=== PATIENT | male | born 1950 | race Caucasian/White ===

== ENCOUNTER 2016-08-26 16:14 | Inpatient (IN) | payer BC ==
[~2016-08-26] VITALS: Ht 182.9 cm; Wt 113.8 kg
[~2016-08-26 16:14] MED LIST: AMLO10TA PO; AUGM875T27 PO; CATA0.1T PO; CIPR500T89 PO; DILA100C PO; ELIQ5TAB PO; FLAG500T PO; LASI40TA PO; LOSA50TA20 PO; MYLI40DR PO; POTA10TA16 PO; PRIM250T5 PO; ROXI1TAB2 PO; TYLE325T5 PO; TYLE650T30 PO
[2016-08-26 17:09] LABS: ALBUMIN 4.2 GM/DL (3.2-5.2); ALKALINE PHOSPHATASE 77 U/L (45-117); ALT/SGPT 105 U/L (12-78); AST/SGOT 300 U/L (15-37); BILIRUBIN,DIRECT 0.3 MG/DL (0.0-0.2); BILIRUBIN,TOTAL 0.8 MG/DL (0.2-1.0); BLOOD UREA NITROGEN 43 MG/DL (7-18); CARBON DIOXIDE LEVEL 28 MEQ/L (21-32); CHLORIDE LEVEL 98 MEQ/L (98-107); CREATININE FOR GFR 2.07 MG/DL (0.70-1.30); GLUCOSE, FASTING 118 MG/DL (80-110); POTASSIUM SERUM 3.5 MEQ/L (3.5-5.1); SODIUM LEVEL 142 MEQ/L (136-145); TOTAL PROTEIN 7.6 GM/DL (6.4-8.2)
[2016-08-26 17:20] LABS: LARGE UNSTAINED CELL # 0.1 K/mm3 (0.0-0.4); LARGE UNSTAINED CELL % 0.4 % (0.0-4.0); LYMPH # 0.8 K/mm3 (1.5-4.5); LYMPH % 4.2 % (24.0-44.0); MEAN CORPUSCULAR HEMOGLOBIN 33.5 pg (27.0-33.0); MEAN CORPUSCULAR HGB CONC 35.2 g/dl (32.0-36.5); MEAN CORPUSCULAR VOLUME 95.2 fl (80.0-96.0); MONO # 0.9 K/mm3 (0.0-0.8); MONO % 4.5 % (0.0-5.0); NEUTROPHILS # 17.3 K/mm3 (1.8-7.7); NEUTROPHILS % 90.7 % (36.0-66.0); PLATELET COUNT, AUTOMATED 275 k/mm3 (150-450); RED CELL DISTRIBUTION WIDTH 12.8 % (11.5-14.5); WHITE BLOOD COUNT 19.1 K/mm3 (4.0-10.0)
[2016-08-26 17:23] LABS: CONTROL LINE INT CTR LINE PRESENT; METHADONE URINE NEGATIVE (NEGATIVE); TRICYCLIC ANTIDEPRESS URINE NEGATIVE (NEGATIVE)
[2016-08-26] MEDS ORDERED: FURO20TA2 PO (17:29)
[2016-08-26 17:56] LABS: ALBUMIN/GLOBULIN RATIO 1.23 (1.00-1.93); ANION GAP 16 MEQ/L (8-16)
[2016-08-26] MEDS ORDERED: PHENYTOIN INJ 250 MG/5 ML VIAL (J1165) As Ordered ONE (18:06)
[2016-08-26 18:21] LABS: ABG BASE EXCESS -4.3 (-2.0-2.0); ABG DEVICE NASAL CANN; ABG HCO3 18.2 MEQ/L (22.0-26.0); ABG PARTIAL PRESSURE CO2 27.4 mmHg (35.0-45.0); ABG PARTIAL PRESSURE O2 82.7 mmHg (75.0-100.0); ABG STANDARD HCO3 20.9 MEQ/L (22.0-26.0); ABG pH (ARTERIAL) 7.439 UNITS (7.350-7.450)
--- NOTE | 2016-08-26 20:20 | REPUSA ---
CLINICAL HISTORY: Trauma TECHNIQUE: Multiple axial CT images were obtained of the left hip without IV contrast material. MPR c oronal and sagittal sequences are obtained. COMMENTS: There is no evidence of fracture or dislocation. There are no lytic or blastic lesions. No soft tissu e masses or fluid collections are present. There is no evidence of arthritis. Joint spaces are preserved. IMPRESSION: No acute fracture. Thank you for your kind referral of this patient.
--- NOTE | 2016-08-26 20:44 | HPEPDOC ---
General Date of Admission Aug 26, 2016 at 20:09 Chief Complaint The patient is a 66-year-old male Presented to the ER via EMS because he was found down at home History of Present Illness Patient is a 66 year old male with a PMHx of HTN and seizure disorder who presented to the ER via EMS because he was found down at his home. The neighbors noted that the patient had his shower running for a long duration. When they went to go investigate they found him on the ground for a long duration. He was brought in by EMS and had a CT scan of his head which revealed a multiple new low-density lesions, and in the left inferior frontal lobe an area with thrombus vs. tiny parenchymal bleed. Hospitalist team was consulted. Patient was seen and examined at the bedside. He still remains lethargic, is awake and alert, oriented to only person and place. He is unable to add any details to his history and does not participate in a full neurologic exam. Home Medications Scheduled Amlodipine Besylate (Norvasc) 10 Mg Tab 10 MG PO DAILY (Reported) Furosemide (Furosemide) 20 Mg Tab 20 MG PO DAILY (Reported) Losartan Potassium (Losartan Potassium) 50 Mg Tab 50 MG PO DAILY (Reported) Phenytoin Sodium (Dilantin) 100 Mg Cap 100 MG PO TID (Reported) Allergies Coded Allergies: No Known Drug Allergy (Verified Allergy, Unknown, 04/15/14) Past Medical History Medical History Obtained from chart: HTN, Seizure disorder Surgical History Obtained from chart: Cholecystectomy Family History Family History Unable to be obtained Social History Social History Unable to be obtained Review of Symptoms Other systems Unable to be obtained Vital Signs - Vitals: BP 152/93, HR 84, RR 18, Sat 97%RA, Temp 97.9F - General: Lying in bed, No acute distress, Speaking in full sentences, AAOx2 ( not to time) - HEENT: Pupils reactive to light - CVS: RRR, +S1S2, - Lungs: Fair air entry bilaterally, Poor inspiratory effort, No appreciable crackles / rhonchi - Abdomen: Soft, Non-distended, Non-tender, + Bowel sounds x 4 - Extremities: + PPx4, No lower extremity edema, No calf tenderness - Neuro: Moves all four extremities equally - Skin: No visible rashes Laboratory Data Labs 24H Laboratory Tests 2 08/26/16 16:31: Aspartate Amino Transf (AST/SGOT) 300H, Alanine Aminotransferase (ALT/SGPT) 105H , Alkaline Phosphatase 77, Total Bilirubin 0.8, Direct Bilirubin 0.3H, Albumin 4.2, Albumin/Globulin Ratio 1.23, Anion Gap 16, White Blood Count 19.1H, Red Blood Count 4.98, Hemoglobin 16.6, Hematocrit 47.4, Mean Corpuscular Volume 95.2 , Mean Corpuscular Hemoglobin 33.5H, Mean Corpuscular Hemoglobin Concent 35.2, Red Cell Distribution Width 12.8, Platelet Count 275, Neutrophils (%) (Auto) 90.7H, Lymphocytes (%) (Auto) 4.2L, Monocytes (%) (Auto) 4.5, Eosinophils (%) ( Auto) 0.0, Basophils (%) (Auto) 0.0, Neutrophils # (Auto) 17.3H, Lymphocytes # ( Auto) 0.8L, Monocytes # (Auto) 0.9H, Eosinophils # (Auto) 0.0, Basophils # (Auto ) 0.0, Calcium Level 9.0, Creatine Kinase MB 171.9H, Creatine Kinase MB Relative Index 1.28, Large Unclassified Cells # 0.1, Large Unclassified Cells % 0.4, Phenytoin (Dilantin) Level 4.7L, Thyroid Stimulating Hormone (TSH) 0.541, Total Creatine Kinase 78363B, Total Protein 7.6, Troponin I 0.02 08/26/16 17:05: Urine Amorphous Sediment SMALLH, Urine Amphetamine Level NEGATIVE, Urine Benzodiazepines Screen NEGATIVE, Urine Cannabinoids NEGATIVE, Urine Cocaine Metabolite NEGATIVE, Urine Opiates Screen NEGATIVE, Urine Appearance CLOUDYH, Urine Color AKASH, Urine pH 5.0, Urine Specific [place] 1.024, Urine Protein 2+H , Urine Glucose (UA) 1+H, Urine Ketones TRACEH, Urine Urobilinogen 0.2, Urine Bilirubin NEGATIVE, Urine Leukocyte Esterase NEGATIVE, Urine Bacteria (Auto) 1+H , Urine Barbiturates, Qualitative NEGATIVE, Urine Blood 3+H, Urine Calcium Carbonate Cryst(Auto) , Urine Calcium Oxalate Cryst (Auto) , Urine Calcium Phosphate Cassidy (Auto) , Urine Cellular Casts , Urine Cystine Crystals , Urine Granular Casts (Auto) , Urine Hyaline Casts (Auto) 3, Urine Leucine Crystals , Urine Methadone Screen NEGATIVE, Urine Mucus (Auto) SMALL, Urine Myoglobin POSITIVE, Urine Nitrite NEGATIVE, Urine Oval Fat Bodies (Auto) , Urine RBC (Auto ) 3, Urine Renal Epithelial Cells , Urine Sperm (Auto) , Urine Squamous Epithelial Cells 1, Urine Transitional Epithelial Cells , Urine Trichomonas ( Auto) , Urine Tricyclic Antidepressants NEGATIVE, Urine Triple Phosphate Cryst ( Auto) , Urine Tyrosine Crystals , Urine Uric Acid Crystals (Auto) , Urine WBC ( Auto) 7H, Urine Waxy Casts (Auto) , Urine Yeast-Like Cells (Auto) 08/26/16 18:06: Arterial Blood pH 7.439, Arterial Blood Partial Pressure CO2 27.4L, Arterial Blood Partial Pressure O2 82.7, Arterial Blood Total CO2 19.0L, Arterial Blood HCO3 18.2L, Arterial Blood Base Excess -4.3L, Arterial Blood Oxygen Saturation 95.8, Blood Gas Bicarbonate Standard 20.9L, Oxygen Delivery Device NASAL FABRIZIO CBC/BMP Laboratory Tests 08/26/16 16:31 Red Blood Count 4.98, Mean Corpuscular Volume 95.2, Mean Corpuscular Hemoglobin 33.5 H, Mean Corpuscular Hemoglobin Concent 35.2, Red Cell Distribution Width 12.8, Neutrophils (%) (Auto) 90.7 H, Lymphocytes (%) (Auto) 4.2 L, Monocytes (% ) (Auto) 4.5, Eosinophils (%) (Auto) 0.0, Basophils (%) (Auto) 0.0, Neutrophils # (Auto) 17.3 H, Lymphocytes # (Auto) 0.8 L, Monocytes # (Auto) 0.9 H, Eosinophils # (Auto) 0.0, Basophils # (Auto) 0.0 Plan / VTE VTE Prophylaxis Ordered?: Yes Plan Plan Acute metabolic encephalopathy possibly 2/2 post-ictal state, possibly 2/2 acute CVA - Presented to the ED after he was found down on at home for a prolonged period of time - Physical reveals he is moving all four extremities equally, no pupillary defects - Phenytoin level sub-therapeutic, has been given loading dose in ER - CT head revealed 2 new low-density lesions in R cerebral hemisphere [R basal ganglia, R posterior frontal lobe worthy matter] consistent with infarction, hyper dense vessel may be acute vascular thrombus vs. tiny parenchymal bleed in the left inferior frontal lobe - Will check MRI brain and MRA head - Will check ECHO, Carotid US - Will keep on telemetry and ICU monitoring - Neuro checks - Discussed case with neurology (Dr. Ken); will be on consult will get additional imaging, no antiplatelet therapy at this time - Will c/w atorvastatin and phenytoin Rhabdomyolysis likely 2/2 prolonged immobility 2/2 fall - Will check urine myoglobin - Strict ins/outs, daily weights, will monitor for signs of fluid overload - Will start gentle IV fluid hydration Acute kidney injury on CKD3 likely 2/2 pre-renal, vs renal 2/2 rhabdomylosis - Baseline creatinine of 1.2-1.3 - Will check urine electrolytes and osmolality - Will start IV fluid hydration Leukocytosis - No fevers or nuchal rigidity - CXR appears clear - UA shows no signs of infection - Will check blood culture, urine culture - Will check lactic acid - Will hold off on antibiotics Fall possibly after seizure episode - Has multiple abrasions on body - No acute fracture noted on imaging Hypertension - Will hold BP medications at this time given acute stroke - If blood pressure exceeds 185/110 will control Seizure disorder - Has been on phenytoin as an outpatient - Sub-therapeutic level - Has been loaded in ER - See above Gastrointestinal prophylaxis - Will start protonix DVT prophylaxis - Will start SCDs only at this time SUGAR BANSAL MD Aug 26, 2016 20:44
[2016-08-26] MEDS: ATORVASTATIN 20 MG TAB PO SCH (21:00)
[2016-08-26] MEDS ORDERED: ASPIRIN 300 MG SUPP PR SCH (21:00)
--- NOTE | 2016-08-26 22:21 | IPNPDOC ---
Text Note Date of Service The patient was seen on 08/26/16. NOTE Spoke to Radiologist Dr Hameed, MRI brain and MRA brain reviewed in comparison to CT head, confirmed right basal ganglion, right parietal, and b/l frontal infarct, possible cardioembolic vs right MCA origin, STACY b/l poor floor , likely thrombus after compared to CT head, confirmed no bleeding Results replated to Dr Ken, recommend full dose ASA, and EDGAR. No anticoagulation indicated at this time. VS,Fishbone, I+O VS, Fishbone, I+O Laboratory Tests 08/26/16 16:31 Red Blood Count 4.98, Mean Corpuscular Volume 95.2, Mean Corpuscular Hemoglobin 33.5 H, Mean Corpuscular Hemoglobin Concent 35.2, Red Cell Distribution Width 12.8, Neutrophils (%) (Auto) 90.7 H, Lymphocytes (%) (Auto) 4.2 L, Monocytes (% ) (Auto) 4.5, Eosinophils (%) (Auto) 0.0, Basophils (%) (Auto) 0.0, Neutrophils # (Auto) 17.3 H, Lymphocytes # (Auto) 0.8 L, Monocytes # (Auto) 0.9 H, Eosinophils # (Auto) 0.0, Basophils # (Auto) 0.0 COLTEN GREY MD Aug 26, 2016 22:21
[2016-08-26] MEDS ORDERED: ASPIRIN 81 MG CHEW TABLET PO SCH (22:37)
--- NOTE | 2016-08-26 23:00 | REPUSA ---
CLINICAL HISTORY: Stroke. Hemorrhage versus ischemia. TECHNIQUE: Head MRA with 3D TOF COMPARISON: Same-day head CT and brain MRI. Right anterior circulation: Right carotid siphon is patent. There is complete or near complete occlus ion of the right anterior cerebral artery. Right middle cerebral artery is patent. No aneurysms are s een. Left anterior circulation: Left carotid siphon is patent. There is complete or near complete occlusio n of the left anterior cerebral artery. Left middle cerebral artery is patent. No aneurysms are seen. Right posterior circulation: Right brainstem arteries are patent. Right posterior cerebral artery is patent. The right posterior communicating artery is patent, which is a normal variant. Left posterior circulation: Left brainstem arteries are patent. Left posterior cerebral artery is pat ent. 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 The hyperdensity seen on the same-day head CT is compatible with acute thrombosis of the ACAs. Findings were discussed with Dr. Yao by phone.
--- NOTE | 2016-08-26 23:00 | REPUSA ---
CLINICAL HISTORY: Infarct versus hemorrhage. TECHNIQUE: MRI of the Brain without gadolinium. Multiplanar T1 and T2 weighted images of the brain we re obtained. COMPARISON: Same-day head CT. T1 and T2: The right basal ganglia infarction produces mild edema that impresses on the right frontal horn but does not produce hydrocephalus. FLAIR: Hyperintensity in the right basal ganglia, high right frontal motor cortex and smaller foci wi th a bilateral periventricular distribution which correspond to the regions of acute ischemia seen on diffusion imaging. Vascular flow voids: Susceptibility artifact within the A1 segment of the STACY suggests acute thrombos is. Midline: Pituitary normal size. Brain stem and corpus callosum appear normal. Sinuses: Mild bilateral maxillary sinusitis. Diffusion Imaging: There are multiple regions of acute infarction; right basal ganglia 2.5 x 2.4 cm, high right parietal lobe 1.9 x 1.8 cm, and several smaller infarctions involving the bilateral perive ntricular tissues superior to the lateral ventricles.. IMPRESSION: 1. Multiple acute infarctions involving the right basal ganglia, high right frontal lobe, and smaller foci along the bilateral medial frontal lobes. This is compatible with acute infarction affecting th e anterior cerebral arteries. The accompanying MRA demonstrates near complete occlusion of blood flow within the bilateral anterior cerebral arteries. 2. Comparison to the same day CT reveals no evidence of hemorrhage into the regions of infarction. Findings were discussed with Dr. Yao by phone.
[2016-08-26] MEDS ORDERED: ASPIRIN 81 MG CHEW TABLET As Ordered ONE (23:07)
[2016-08-27] VITALS (10 sets, daily range): BP systolic 141–179; BP diastolic 86–101; PULSE 90
--- NOTE | 2016-08-27 00:22 | EDDOCDS ---
Physician Documentation [facility] Name: Brett Haddad Age: 66 yrs Sex: Male : 1950 Arrival Date: 08/26/2016 Time: 16:14 Bed MRI Private MD: Luis Hays Disposition: 08/26/16 18:23 Hospitalization ordered by Lizet Guerrero for Inpatient Admission. Preliminary diagnosis are Rhabdomyolysis, Fall in (into) shower or empty bathtub. - Bed requested for M ICU. - Status is Inpatient Admission. curtis - Condition is Stable. - Problem is new. - Symptoms are unchanged. Historical: - Allergies: no known allergies; - Home Meds: 1. Norvasc 10 mg Oral tab 1 tab once daily 2. losartan 50 mg oral tab 1 tab once daily 3. Phenytoin 100 mg Oral 1 tabs three times a day 4. Lasix 20 mg oral tab 1 tab once daily - PMHx: Hypertension; Seizures; - PSHx: Cholecystectomy; - Social history: Smoking status: Patient states was never smoker of tobacco. No barriers to communication noted, The patient speaks fluent Croatian, Speaks appropriately for age. - Family history: Not pertinent. - : The pt / caregiver states he / she is not on anticoagulants. Home medication list is obtained from pill bottles. - Exposure Risk Screening:: None identified. Vital Signs: 08/26 16:27 BP 186 / 86 LA Supine (man/lg); Pulse 69; Resp 20; Temp 97.9(O); Pulse Ox 95% on R/A; nb2 Pain 0/10; 16:49 Weight 99.67 kg / 219.73 lbs; js13 16:51 BP 152 / 93 (auto/); js13 16:51 Pulse 84 MON; Resp 18; Pulse Ox 97% on R/A; js13 21:39 BP 151 / 96 (auto/); mv5 21:41 Pulse 76 MON; Pulse Ox 95% ; mv5 21:45 BP 158 / 85 (auto/); mv5 21:46 Pulse 77 MON; Pulse Ox 92% ; mv5 22:00 BP 155 / 85 (auto/); mv5 22:00 Pulse 78 MON; Pulse Ox 93% ; mv5 22:15 BP 151 / 74 (auto/); mv5 22:16 Pulse 80 MON; Pulse Ox 93% ; mv5 22:30 BP 162 / 82 (auto/); mv5 22:31 Pulse 79 MON; Pulse Ox 92% ; mv5 22:45 BP 151 / 73 (auto/); mv5 22:46 Pulse 81 MON; Pulse Ox 92% ; mv5 23:00 BP 156 / 89 (auto/); mv5 23:00 Pulse 79 MON; Pulse Ox 92% ; mv5 23:15 BP 155 / 84 (auto/); mv5 23:16 Pulse 84 MON; Pulse Ox 91% ; mv5 23:30 BP 159 / 77 (auto/); mv5 23:32 BP 157 / 77; Pulse 86 MON; Resp 16; Temp 100.4(TE); Pulse Ox 93% on R/A; mv5 23:48 BP 157 / 77; Pulse 86; Resp 16; Temp 100.4(TE); Pulse Ox 93% on R/A; mv5 MDM: 16:30 Bible Worker/Pulse Ox/q 15 min VS ordered. le 16:30 IV Saline Lock ordered. le 16:30 Oxygen at 4L/Min NC or Home dosage ordered. le 16:30 Rhythm Strip to chart ordered. le 16:31 [place] ordered. le 16:31 CBC with Diff Ordered. EDMS 16:31 Cardiac Injury Profile Ordered. EDMS 16:31 Drug Eval Toxicology ED Only Ordered. EDMS 16:31 Liver Profile Ordered. EDMS 16:31 MED Profile Ordered. EDMS 16:31 Thyroid Stimulating Hormone Ordered. EDMS 16:31 Troponin Ordered. EDMS 16:31 Urinalysis Ordered. EDMS 16:31 Urine Myoglobin Screen Ordered. EDMS 16:32 Chest, 1 View Ordered. EDMS 16:32 CT Head Without Contrast Ordered. EDMS 16:32 ECG WITH READING ER PHYS+CARDIAG ordered. EDMS 16:46 Dilantin Level Ordered. EDMS 16:55 NS 0.9% 1000 ml IV at bolus once ordered. le 17:09 Hip,AP,LAT to include Pelvis Ordered. EDMS 17:11 BED REQUEST+ADM ordered. EDMS 17:52 CBC with Diff Reviewed. le 17:52 Cardiac Injury Profile Reviewed. le 17:52 Urinalysis Reviewed. le 17:52 Dilantin Level Reviewed. le 17:52 Drug Eval Toxicology ED Only Reviewed. le 17:52 Thyroid Stimulating Hormone Reviewed. le 17:52 Troponin Reviewed. le 17:52 Urine Myoglobin Screen Reviewed. le 17:56 Call Respiratory ordered. le 17:56 Phenytoin 500 mg IVPB once over 30 mins; dilute in 100ml of NS ordered. le 17:57 Call Respiratory complete. ar3 17:57 -Arterial Blood Gas Ordered. EDMS 17:59 Cardiac Injury Profile Reviewed. le 18:00 CT Hip Without Contrast Ordered. EDMS 18:21 MRI Screening Tool - Place on chart, inform RN ordered. le 18:21 -MRA-Brain without contrast Ordered. EDMS 18:21 -MRI-Brain without Ordered. EDMS 19:22 Financial registration complete. gb 19:42 MRI Screening Tool - Place on chart, inform RN complete. ml3 19:43 ECHOCARD,DOPPLER/COLOR FLOW ordered. EDMS 19:43 NPO DIET ordered. EDMS 19:44 CARDIAC INJURY PROFILE Ordered. EDMS 19:44 TROPONIN Ordered. EDMS 19:44 URINALYSIS Ordered. EDMS 19:44 CARDIAC INJURY PROFILE Ordered. EDMS 19:44 TROPONIN Ordered. EDMS 19:44 CBC WITH DIFFERENTIAL Ordered. EDMS 19:44 COMPLETE COMPHRENSIVE METABOLI Ordered. EDMS 19:44 MAGNESIUM LEVEL Ordered. EDMS 19:45 URINE CULTURE Ordered. EDMS 19:45 BLOOD CULTURES Ordered. EDMS 19:47 SODIUM,RANDOM URINE Ordered. EDMS 19:48 CREATININE,RANDOM URINE Ordered. EDMS 19:48 OSMOLALITY,URINE Ordered. EDMS 19:52 LACTIC ACID LEVEL, LACTATE Ordered. EDMS 20:12 Admission / Observation Status ordered. EDMS 20:35 Duplex,carotid (complete) Ordered. EDMS 20:41 URINE MYOGLOBIN SCREEN Ordered. EDMS 20:47 Liver Profile Reviewed. le 20:47 MED Profile Reviewed. le 20:47 -Arterial Blood Gas Reviewed. le 20:47 Thyroid Stimulating Hormone Reviewed. le 20:47 Troponin Reviewed. le 20:47 CT Hip Without Contrast Reviewed. le 21:43 CARDIAC INJURY PROFILE Ordered. EDMS 21:43 TROPONIN Ordered. EDMS 22:42 CARDIAC INJURY PROFILE Reviewed. le 22:42 TROPONIN Reviewed. le 22:42 LACTIC ACID LEVEL, LACTATE Reviewed. le Administered Medications: 17:06 Drug: NS 0.9% 1000 ml [sodium chloride 0.9 % intravenous solution] Route: IV; Rate: js13 bolus; Site: right antecubital; 18:15 Drug: Phenytoin 500 mg [phenytoin sodium 50 mg/mL intravenous solution] Route: IVPB; js13 Infused Over: 30 mins; Site: right antecubital; 19:03 Follow up: IV Status: Completed infusion; IV Intake: 50ml js13 Signatures: Dispatcher [employer] EDMS Sangeeta Armstrong RN RN curtis Almanzar, Kely, Reg Reg gb Adelfo, Luís, [place] Unit ml3 Pari Ramsey, ALUMNI COORDINATOR ALUMNI COORDINATOR Noreen Maria, WARP KNITTING MACHINE OPERATOR WARP KNITTING MACHINE OPERATOR ar3 Kelly Wilkerson,ANGELITO EATON ld5 Ama Stewart RN RN js13 The chart was reviewed and I authenticate all verbal orders and agree with the evaluation and treatment provided.Corrections: (The following items were deleted from the chart) 16:48 16:30 Accucheck ordered. clayton graham 21:43 19:44 CARDIAC INJURY PROFILE ordered. EDKS EDMS 21:43 19:44 TROPONIN ordered. EDMS EDMS 21:43 19:45 CREATINE PHOSPHOKINASE ordered. EDMS EDMS MTDD
--- NOTE | 2016-08-27 00:22 | EDDOCDS ---
Nurse's Notes [facility] Name: Brett Haddad Age: 66 yrs Sex: Male : 1950 Arrival Date: 08/26/2016 Time: 16:14 Bed MRI Private MD: Luis Hays Diagnosis: Rhabdomyolysis;Fall in (into) shower or empty bathtub Presentation: 08/26 16:19 Presenting complaint: EMS states: Neighbor called 911 due to water running all nights. ld5 Pt found down in shower with water still running. Altered LOC. Suicide/Homicide risk assessment- Unable to assess, the patient has an altered level of consciousness. 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 Transition of care: patient was not received from another setting of care. Care prior to arrival: Glucose check. 169. 16:19 Acuity: HILDA Level 2 ld5 16:19 Method Of Arrival: Ambulance ld5 Triage Assessment: 16:24 General: Appears in no apparent distress. Pain: Denies pain. Neurological: Level of ld5 Consciousness is awake, obeys commands, Oriented to person, place. EENT: redness to right eye. Respiratory: Airway is patent Respiratory effort is even, unlabored. Derm: Skin temperature is cold. 21:40 General: Appears in no apparent distress. General: Pt resting with eyes closed, wakes mv5 to voice/light tactile stim. Pt obeys commands with mildly delayed responsiveness. . Pain: Denies pain. Neurological: Level of Consciousness is obeys commands. Historical: - Allergies: no known allergies; - Home Meds: 1. Norvasc 10 mg Oral tab 1 tab once daily 2. losartan 50 mg oral tab 1 tab once daily 3. Phenytoin 100 mg Oral 1 tabs three times a day 4. Lasix 20 mg oral tab 1 tab once daily - PMHx: Hypertension; Seizures; - PSHx: Cholecystectomy; - Social history: Smoking status: Patient states was never smoker of tobacco. No barriers to communication noted, The patient speaks fluent Romansh, Speaks appropriately for age. - Family history: Not pertinent. - : The pt / caregiver states he / she is not on anticoagulants. Home medication list is obtained from pill bottles. - Exposure Risk Screening:: None identified. Screenin:51 Screening information is obtained from the patient. Fall risk: At risk due to age, js13 immobility, prior history of falls. Assistance ADL's: requires no assistance with activities of daily living. Abuse/DV Screen: The patient / caregiver reports he/she is: not in a situation that causes fear, pain or injury. Nutritional screening: No deficits noted. Advance Directives: There is no active DNR order. home support is adequate. Assessment: 17:37 General: Appears in no apparent distress, Behavior is appropriate for age, cooperative. js13 Pain: Denies pain. Neurological: Level of Consciousness is awake, alert, obeys commands. Cardiovascular: Rhythm is regular Chest pain is denied. Respiratory: Airway is patent Respiratory effort is even, unlabored, Respiratory pattern is regular, Breath sounds are clear. GI: Abdomen is obese, Bowel sounds present X 4 quads. Abd is soft and non tender. Derm: Skin is pink, warm & dry. Derm: Bruising that is bright red, on right lower back, right foot and right leg Patient has scrapes on his lower extremities with a dime sized pressure area on right ankle. 18:35 General: Appears in no apparent distress, Behavior is appropriate for age, cooperative. js13 Pain: Denies pain. Neurological: Level of Consciousness is awake, alert, obeys commands. Cardiovascular: Rhythm is regular Chest pain is denied. Respiratory: Airway is patent Respiratory effort is even, unlabored, Respiratory pattern is regular, symmetrical, Breath sounds are clear. GI: Abdomen is obese, Bowel sounds present X 4 quads. Abd is soft and non tender. Derm: Skin is pink, warm & dry. 19:13 General: Appears in no apparent distress, Behavior is appropriate for age, cooperative. mv5 General: Pt resting with eyes closed, wakes to voice/light tactile. Unable to complete MRI screening form at this time. Will reattempt and continue to monitor.. Neurological: Level of Consciousness is obeys commands. Cardiovascular: Rhythm is regular. Respiratory: Airway is patent Respiratory effort is even, unlabored, Respiratory pattern is regular, symmetrical. Derm: Skin is pink, warm & dry. 21:40 General: Appears in no apparent distress, Behavior is appropriate for age, cooperative. mv5 General: warm blankets provided.. Pain: Denies pain. Neurological: Level of Consciousness is obeys commands, Oriented to. Cardiovascular: Rhythm is regular. Respiratory: Airway is patent Respiratory effort is even, unlabored, Respiratory pattern is regular, symmetrical. Derm: Skin is pink, warm & dry. 23:00 General: Appears in no apparent distress, comfortable, Behavior is cooperative, quiet. curtis Pain: Denies pain. Neurological: Level of Consciousness is awake, alert, obeys commands, Oriented to person, place, time, in bilateral hand's) arm(s) Speech is normal, speaks in slow sentences, is accurate with time,date, place and current president. EENT: No deficits noted. Cardiovascular: Rhythm is sinus rhythm with unifocal PVCs. Respiratory: Airway is patent Respiratory effort is even, unlabored, Respiratory pattern is regular, symmetrical. : Faulkner in place tea colored urine. 23:41 Cardiovascular: Rhythm is occasional PVC's. mv5 Vital Signs: 16:27 BP 186 / 86 LA Supine (man/lg); Pulse 69; Resp 20; Temp 97.9(O); Pulse Ox 95% on R/A; nb2 Pain 0/10; 16:49 Weight 99.67 kg; js13 16:51 BP 152 / 93 (auto/); js13 16:51 Pulse 84 MON; Resp 18; Pulse Ox 97% on R/A; js13 21:39 BP 151 / 96 (auto/); mv5 21:41 Pulse 76 MON; Pulse Ox 95% ; mv5 21:45 BP 158 / 85 (auto/); mv5 21:46 Pulse 77 MON; Pulse Ox 92% ; mv5 22:00 BP 155 / 85 (auto/); mv5 22:00 Pulse 78 MON; Pulse Ox 93% ; mv5 22:15 BP 151 / 74 (auto/); mv5 22:16 Pulse 80 MON; Pulse Ox 93% ; mv5 22:30 BP 162 / 82 (auto/); mv5 22:31 Pulse 79 MON; Pulse Ox 92% ; mv5 22:45 BP 151 / 73 (auto/); mv5 22:46 Pulse 81 MON; Pulse Ox 92% ; mv5 23:00 BP 156 / 89 (auto/); mv5 23:00 Pulse 79 MON; Pulse Ox 92% ; mv5 23:15 BP 155 / 84 (auto/); mv5 23:16 Pulse 84 MON; Pulse Ox 91% ; mv5 23:30 BP 159 / 77 (auto/); mv5 23:32 BP 157 / 77; Pulse 86 MON; Resp 16; Temp 100.4(TE); Pulse Ox 93% on R/A; mv5 23:48 BP 157 / 77; Pulse 86; Resp 16; Temp 100.4(TE); Pulse Ox 93% on R/A; mv5 Vitals: 16:27 Log In Time N/A - ambulance arrival. nb2 ED Course: 16:14 Patient visited by Noreen Ross PCA. ar3 16:14 Ama Stewart,RN is Primary Nurse. ar3 16:14 Patient moved to Waiting ar3 16:14 Patient moved to 1 ar3 16:15 [facility]. le 16:15 Luis Hays MD is Private Physician. ar3 16:22 Triage Initiated ld5 16:27 Patient has correct armband on for positive identification. Placed in gown. Bed in low nb2 position. Call light in reach. Side rails up X2. deli slicer on. Pulse ox on. NIBP on. 16:28 Patient visited by Nancy Huber. nb2 16:28 Patient visited by Kelly Wilkerson,ANGELITO. ld5 16:34 CBC with Diff Sent. js13 16:34 Cardiac Injury Profile Sent. js13 16:34 Liver Profile Sent. js13 16:34 MED Profile Sent. js13 16:34 Thyroid Stimulating Hormone Sent. js13 16:34 Troponin Sent. js13 16:46 Patient visited by Pari Ramsey FNP. le 16:46 Patient visited by Pari Ramsey FNP. le 16:48 Dilantin Level Sent. js13 16:51 The patient / caregiver is instructed regarding the plan of care and ED course. Seizure js13 precautions initiated. 17:05 Urine Myoglobin Screen Sent. js13 17:05 Drug Eval Toxicology ED Only Sent. js13 17:05 Urinalysis Sent. js13 17:06 Inserted saline lock: 18 gauge in right antecubital area and blood collected. The js13 patient tolerated the procedure well. No procedures done that require assistance. Labs drawn. (by ED staff). Sent per order to lab. Labs/Blood culture drawn Urine collected. Specimen obtained from Faulkner. Urine specimen sent to lab. Faulkner cath inserted 18 Fr. Balloon inflated. To gravity drainage. Urine specimen collected. returned heri urine. Patient tolerated well. 17:12 Patient visited by Morgan Paez, SYD. [facility] 17:12 EKG done. (by ED staff). Reviewed by Pari GUERIN. jmv 17:40 Patient visited by Ama Stewart,ANGELITO. js13 18:16 -Arterial Blood Gas Sent. kjn 18:23 Lizet Guerrero is Hospitalizing Provider. le 18:36 Patient visited by Ama Stewart RN. js13 19:12 Primary Nurse role handed off by Ama Stewart,RN mv5 19:12 Ewelina Mix,RN is Primary Nurse. mv5 19:45 Davina Gutierrez, ANGELITO is Primary Nurse. kmg1 20:06 Patient moved to MRI ml3 20:36 CT Hip Without Contrast Returned. EDMS 23:48 Patient visited by Fariha Grossman PCA. italia 23:50 -MRI-Brain without Returned. EDMS 23:50 -MRA-Brain without contrast Returned. EDMS Administered Medications: 17:06 Drug: NS 0.9% 1000 ml [sodium chloride 0.9 % intravenous solution] Route: IV; Rate: js13 bolus; Site: right antecubital; 18:15 Drug: Phenytoin 500 mg [phenytoin sodium 50 mg/mL intravenous solution] Route: IVPB; js13 Infused Over: 30 mins; Site: right antecubital; 19:03 Follow up: IV Status: Completed infusion; IV Intake: 50ml js13 Intake: 19:03 IV: 50.00ml; Total: 50.00ml. js13 02 00:11 IV: 1000.00ml (NS); Total: 1050.00ml. mv5 Output: 00:11 Urine: 750.00ml (Faulkner); Total: 750.00ml. mv5 RT: 08/26 18:16 ABG's drawn from right radial artery unsuccesfully attempted, provider notified. kjn 18:16 ABG's drawn from right brachial artery pressure held for 5 minutes no bleeding noted kjn pressure bandage applied specimen sent pt. tolerated well. Order Results: Lab Order: CBC with Diff; SPEC'M 08/26/16 16:31 Test: WHITE BLOOD COUNT; Value: 19.1; Range: 4.0-10.0; Abnormal: Above high normal; Units: K/mm3; Status: F Test: RED BLOOD COUNT; Value: 4.98; Range: 4.30-6.10; Units: M/mm3; Status: F Test: HEMOGLOBIN; Value: 16.6; Range: 14.0-18.0; Units: g/dl; Status: F Test: HEMATOCRIT; Value: 47.4; Range: 42.0-52.0; Units: %; Status: F Test: MEAN CORPUSCULAR VOLUME; Value: 95.2; Range: 80.0-96.0; Units: fl; Status: F Test: MEAN CORPUSCULAR HEMOGLOBIN; Value: 33.5; Range: 27.0-33.0; Abnormal: Above high normal; Units: pg; Status: F Test: MEAN CORPUSCULAR HGB CONC; Value: 35.2; Range: 32.0-36.5; Units: g/dl; Status: F Test: RED CELL DISTRIBUTION WIDTH; Value: 12.8; Range: 11.5-14.5; Units: %; Status: F Test: PLATELET COUNT, AUTOMATED; Value: 275; Range: 150-450; Units: k/mm3; Status: F Test: NEUTROPHILS %; Value: 90.7; Range: 36.0-66.0; Abnormal: Above high normal; Units: %; Status: F Test: LYMPH %; Value: 4.2; Range: 24.0-44.0; Abnormal: Below low normal; Units: %; Status: F Test: MONO %; Value: 4.5; Range: 0.0-5.0; Units: %; Status: F Test: EOS %; Value: 0.0; Range: 0.0-3.0; Units: %; Status: F Test: BASO %; Value: 0.0; Range: 0.0-1.0; Units: %; Status: F Test: LARGE UNSTAINED CELL %; Value: 0.4; Range: 0.0-4.0; Units: %; Status: F Test: NEUTROPHILS #; Value: 17.3; Range: 1.8-7.7; Abnormal: Above high normal; Units: K/mm3; Status: F Test: LYMPH #; Value: 0.8; Range: 1.5-4.5; Abnormal: Below low normal; Units: K/mm3; Status: F Test: MONO #; Value: 0.9; Range: 0.0-0.8; Abnormal: Above high normal; Units: K/mm3; Status: F Test: EOS #; Value: 0.0; Range: 0.0-0.50; Units: K/mm3; Status: F Test: BASO #; Value: 0.0; Range: 0.0-0.2; Units: K/mm3; Status: F Test: LARGE UNSTAINED CELL #; Value: 0.1; Range: 0.0-0.4; Units: K/mm3; Status: F Lab Order: Cardiac Injury Profile; SPEC'M 08/26/16 16:31 Test: CPK CREATINE PHOSPHOKINASE; Value: 64641; Range: 39-308; Abnormal: Above high normal; Units: U/L; Status: F Test: CK-MB VALUE MASS; Value: 171.9; Range: 0.0-3.6; Abnormal: Above high normal; Units: NG/ML; Status: F Test: MB/CK RELATIVE INDEX; Value: 1.28; Range: < OR =4; Status: F Test Note: ; DIAGNOSIS CRITERIA MMB ng/ml Relative Index (RI) NON-AMI < or = 5 N/A LIZARRAGA ZONE > 5 < or = 4 AMI > 5 > 4 Lab Order: Drug Eval Toxicology ED Only; SPEC'M 08/26/16 17:05 Test: AMPHETAMINES LEVEL URINE; Value: NEGATIVE; Range: NEGATIVE; Status: F Test: BARBITURATES URINE; Value: NEGATIVE; Range: NEGATIVE; Status: F Test: BENZODIAZEPINES URINE; Value: NEGATIVE; Range: NEGATIVE; Status: F Test: CANNABINOIDS URINE; Value: NEGATIVE; Range: NEGATIVE; Status: F Test: COCAINE METABOLITE URINE; Value: NEGATIVE; Range: NEGATIVE; Status: F Test: METHADONE URINE; Value: NEGATIVE; Range: NEGATIVE; Status: F Test: OPIATES URINE; Value: NEGATIVE; Range: NEGATIVE; Status: F Test: TRICYCLIC ANTIDEPRESS URINE; Value: NEGATIVE; Range: NEGATIVE; Status: F Test Note: ; ALL PRESUMPTIVE POSITIVE FINDINGS ARE UNCONFIRMED NORMAL VALUES THRESHOLD IN NG/ML AMPHETAMINES 1000 METHAMPHETAMINES 1000 BARBITURATES 300 BENZODIAZEPINES 300 CANNABINOIDS (THC) 50 COCAINE METABOLITE 300 METHADONE 300 OPIATES 300 PHENCYCLIDINE 25 TRICYCLIC ANTIDEPRESSANTS 1000 RESULTS ARE FOR MEDICAL PURPOSES ONLY. ALL URINE SPECIMENS WILL BE SAVED FOR 3 DAYS. IF CONFIRMATION OF A PRESUMPTIVE POSTIVE SCREEN RESULT IS DESIRED, CALL CHEMISTRY ([phone]) AND REQUEST URINE TO BE SENT TO REFERENCE LAB. FOR A LIST OF CLOSELY RELATED COMPOUNDS PLEASE CALL THE LAB. Lab Order: Liver Profile; SPEC'M 08/26/16 16:31 Test: AST/SGOT; Value: 300; Range: 15-37; Abnormal: Above high normal; Units: U/L; Status: F Test: ALT/SGPT; Value: 105; Range: 12-78; Abnormal: Above high normal; Units: U/L; Status: F Test: ALKALINE PHOSPHATASE; Value: 77; Range: 45-117; Units: U/L; Status: F Test: BILIRUBIN,TOTAL; Value: 0.8; Range: 0.2-1.0; Units: MG/DL; Status: F Test: BILIRUBIN,DIRECT; Value: 0.3; Range: 0.0-0.2; Abnormal: Above high normal; Units: MG/DL; Status: F Test: TOTAL PROTEIN; Value: 7.6; Range: 6.4-8.2; Units: GM/DL; Status: F Test: ALBUMIN; Value: 4.2; Range: 3.2-5.2; Units: GM/DL; Status: F Test: ALBUMIN/GLOBULIN RATIO; Value: 1.23; Range: 1.00-1.93; Status: F Lab Order: MED Profile; SPEC'M 08/26/16 16:31 Test: GLUCOSE, FASTING; Value: 118; Range: 80-110; Abnormal: Above high normal; Units: MG/DL; Status: F Test: BLOOD UREA NITROGEN; Value: 43; Range: 7-18; Abnormal: Above high normal; Units: MG/DL; Status: F Test: CREATININE FOR GFR; Value: 2.07; Range: 0.70-1.30; Abnormal: Above high normal; Units: MG/DL; Status: F Test: SODIUM LEVEL; Value: 142; Range: 136-145; Units: MEQ/L; Status: F Test: POTASSIUM SERUM; Value: 3.5; Range: 3.5-5.1; Units: MEQ/L; Status: F Test: CHLORIDE LEVEL; Value: 98; Range: 98-107; Units: MEQ/L; Status: F Test: CARBON DIOXIDE LEVEL; Value: 28; Range: 21-32; Units: MEQ/L; Status: F Test: ANION GAP; Value: 16; Range: 8-16; Units: MEQ/L; Status: F Test: CALCIUM LEVEL; Value: 9.0; Range: 8.8-10.2; Units: MG/DL; Status: F Lab Order: Thyroid Stimulating Hormone; SPEC'M 08/26/16 16:31 Test: THYROID STIMULATING HORMONE; Value: 0.541; Range: 0.358-3.740; Units: uIU/ML; Status: F Lab Order: Troponin; SPEC'M 08/26/16 16:31 Test: TROPONIN I; Value: 0.02; Range: < 0.10; Units: NG/ML; Status: F Test Note: ; Troponin I Reference Interval for [employer] LOCI: 99th Percentile= 0.00-0.045 ng/ml Risk Stratification: <= 0.10 ng/ml Decreased Risk for Adverse Clinical Events. 0.10-1.50 ng/ml Increased Risk for Adverse Clinical Events. Evaluation of additional criterion and/or repeat testing in 2-6 hours is suggested to rule out myocardial damage. >= 1.50 ng/ml Indicative of Myocardial Injury. Lab Order: Urinalysis; SPEC'M 08/26/16 17:05 Test: APPEARANCE, URINE; Value: CLOUDY; Range: CLEAR; Abnormal: Above high normal; Status: F Test: COLOR, URINE; Value: HERI; Range: YELLOW; Status: F Test: PH,URINE; Value: 5.0; Range: 5.0-9.0; Units: UNITS; Status: F Test: SPECIFIC GRAVITY URINE AUTO; Value: 1.024; Range: 1.002-1.035; Status: F Test: PROTEIN, URINE AUTO; Value: 2+; Range: NEGATIVE; Abnormal: Above high normal; Units: mg/dL; Status: F Test: GLUCOSE, URINE (UA) AUTO; Value: 1+; Range: NEGATIVE; Abnormal: Above high normal; Units: mg/dL; Status: F Test: KETONE, URINE AUTO; Value: TRACE; Range: NEGATIVE; Abnormal: Above high normal; Units: mg/dL; Status: F Test: UROBILINOGEN, URINE AUTO; Value: 0.2; Range: 0.0-2.0; Units: mg/dL; Status: F Test: BILIRUBIN, URINE AUTO; Value: NEGATIVE; Range: NEGATIVE; Status: F Test: NITRITE, URINE AUTO; Value: NEGATIVE; Range: NEGATIVE; Status: F Test: LEUKOCYTE ESTERASE, URINE AUTO; Value: NEGATIVE; Range: NEGATIVE; Status: F Test: BLOOD, URINE BLOOD; Value: 3+; Range: NEGATIVE; Abnormal: Above high normal; Status: F Test: SPERM, URINE AUTO; Range: NONE; Status: I Test: WBC, URINE AUTO; Value: 7; Range: 0-3; Abnormal: Above high normal; Units: /HPF; Status: F Test: RBC, URINE AUTO; Value: 3; Range: 0-3; Units: /HPF; Status: F Test: BACTERIA, URINE AUTO; Value: 1+; Range: NEGATIVE; Abnormal: Above high normal; Status: F Test: SQUAMOUS EPITHELIAL CELL UR AU; Value: 1; Range: 0-6; Units: /HPF; Status: F Test: MUCUS, URINE; Value: SMALL; Range: NEGATIVE; Status: F Test: HYALINE CAST, URINE AUTO; Value: 3; Range: 0-1; Units: /LPF; Status: F Test: AMORPHOUS SEDIMENT; Value: SMALL; Range: NEGATIVE; Abnormal: Above high normal; Status: F Lab Order: Urine Myoglobin Screen; SPEC'M 08/26/16 17:05 Test: MYOGLOBIN SCREEN, URINE; Value: POSITIVE; Range: NEGATIVE; Status: F Test Note: ; SUGGEST QUANTITATIVE TEST BE ORDERED FOR CONFIRMATION. Lab Order: Dilantin Level; SPEC'M 08/26/16 16:31 Test: PHENYTOIN (DILANTIN); Value: 4.7; Range: 10.0-20.0; Abnormal: Below low normal; Units: UG/ML; Status: F Lab Order: -Arterial Blood Gas; SPEC'M 08/26/16 18:06 Test: ABG pH (ARTERIAL); Value: 7.439; Range: 7.350-7.450; Units: UNITS; Status: F Test: ABG PARTIAL PRESSURE CO2; Value: 27.4; Range: 35.0-45.0; Abnormal: Below low normal; Units: mmHg; Status: F Test: ABG PARTIAL PRESSURE O2; Value: 82.7; Range: 75.0-100.0; Units: mmHg; Status: F Test: ABG TOTAL CO2; Value: 19.0; Range: 23.0-31.0; Abnormal: Below low normal; Units: MEQ/L; Status: F Test: ABG HCO3; Value: 18.2; Range: 22.0-26.0; Abnormal: Below low normal; Units: MEQ/L; Status: F Test: ABG BASE EXCESS; Value: -4.3; Range: -2.0-2.0; Abnormal: Below low normal; Status: F Test: ABG STANDARD HCO3; Value: 20.9; Range: 22.0-26.0; Abnormal: Below low normal; Units: MEQ/L; Status: F Test: ABG O2 SATURATION; Value: 95.8; Range: 95.0-99.0; Units: %; Status: F Test: ABG DEVICE; Value: NASAL FABRIZIO; Status: F Lab Order: CARDIAC INJURY PROFILE; 08/26/16 21:04 Test: CPK CREATINE PHOSPHOKINASE; Value: 03232; Range: 39-308; Abnormal: Above high normal; Units: U/L; Status: F Test: CK-MB VALUE MASS; Value: 232.7; Range: 0.0-3.6; Abnormal: Above high normal; Units: NG/ML; Status: F Test: MB/CK RELATIVE INDEX; Value: 1.08; Range: < OR =4; Status: F Test Note: ; DIAGNOSIS CRITERIA MMB ng/ml Relative Index (RI) NON-AMI < or = 5 N/A LIZARRAGA ZONE > 5 < or = 4 AMI > 5 > 4 Lab Order: TROPONIN; 08/26/16 21:04 Test: TROPONIN I; Value: 0.05; Range: < 0.10; Abnormal: Delta; Units: NG/ML; Status: F Test Note: ; Troponin I Reference Interval for [employer] LOCI: 99th Percentile= 0.00-0.045 ng/ml Risk Stratification: <= 0.10 ng/ml Decreased Risk for Adverse Clinical Events. 0.10-1.50 ng/ml Increased Risk for Adverse Clinical Events. Evaluation of additional criterion and/or repeat testing in 2-6 hours is suggested to rule out myocardial damage. >= 1.50 ng/ml Indicative of Myocardial Injury. Lab Order: LACTIC ACID LEVEL, LACTATE; SPEC'M 08/26/16 21:04 Test: LACTIC ACID SEPSIS PROTOCOL; Value: 2.0; Range: 0.4-2.0; Units: MMOL/L; Status: F Radiology Order: CT Hip Without Contrast Test: CT Hip Without Contrast REASON FOR EXAMINATION: Trauma; ; CLINICAL HISTORY: Trauma; TECHNIQUE: Multiple axial CT images were obtained of the left hip without IV contrast material. MPR c; oronal and sagittal sequences are obtained.; COMMENTS:; There is no evidence of fracture or dislocation. There are no lytic or blastic lesions. No soft tissu; e masses or fluid collections are present.; There is no evidence of arthritis. Joint spaces are preserved.; IMPRESSION:; No acute fracture.; Thank you for your kind referral of this patient.; ; Radiology Order: -MRA-Brain without contrast Test: -MRA-Brain without contrast REASON FOR EXAMINATION: trauma, ? infarct/bleed; ; CLINICAL HISTORY: Stroke. Hemorrhage versus ischemia.; TECHNIQUE: Head MRA with 3D TOF; COMPARISON: Same-day head CT and brain MRI.; ; ; Right anterior circulation: Right carotid siphon is patent. There is complete or near complete occlus; ion of the right anterior cerebral artery. Right middle cerebral artery is patent. No aneurysms are s; een.; ; Left anterior circulation: Left carotid siphon is patent. There is complete or near complete occlusio; n of the left anterior cerebral artery. Left middle cerebral artery is patent. No aneurysms are seen.; ; ; Right posterior circulation: Right brainstem arteries are patent. Right posterior cerebral artery is; patent. The right posterior communicating artery is patent, which is a normal variant.; Left posterior circulation: Left brainstem arteries are patent. 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 Yao by phone.; ; Radiology Order: -MRI-Brain without Test: -MRI-Brain without REASON FOR EXAMINATION: ? infarct/bleed;Trauma; ; CLINICAL HISTORY: Infarct versus hemorrhage.; TECHNIQUE: MRI of the Brain without gadolinium. Multiplanar T1 and T2 weighted images of the brain we; re obtained.; ; COMPARISON: Same-day head CT.; ; T1 and T2: The right basal ganglia infarction produces mild edema that impresses on the right frontal; horn but does not produce hydrocephalus.; FLAIR: Hyperintensity in the right basal ganglia, high right frontal motor cortex and smaller foci wi; th a bilateral periventricular distribution which correspond to the regions of acute ischemia seen on; diffusion imaging.; Vascular flow voids: Susceptibility artifact within the A1 segment of the STACY suggests acute thrombos; is.; Midline: Pituitary normal size. Brain stem and corpus callosum appear normal.; Sinuses: Mild bilateral maxillary sinusitis.; Diffusion Imaging: There are multiple regions of acute infarction; right basal ganglia 2.5 x 2.4 cm,; high right parietal lobe 1.9 x 1.8 cm, and several smaller infarctions involving the bilateral perive; ntricular tissues superior to the lateral ventricles..; ; ; IMPRESSION:; 1. Multiple acute infarctions involving the right basal ganglia, high right frontal lobe, and smaller; foci along the bilateral medial frontal lobes. This is compatible with acute infarction affecting th; e anterior cerebral arteries. The accompanying MRA demonstrates near complete occlusion of blood flow; within the bilateral anterior cerebral arteries.; 2. Comparison to the same day CT reveals no evidence of hemorrhage into the regions of infarction.; Findings were discussed with Dr. Yao by phone.; ; Outcome: 18:23 Decision to Hospitalize by Provider. clayton 08/27 00:11 Discharge Assessment: Patient drowsy. patient administered narcotics - no. Admitted to mv5 ICU accompanied by nurse, accompanied by tech, via stretcher. The following High Risk Discharge criteria are identified: None. Condition: stable Condition: unchanged. MRI Study completed. Property :Personal belongings accompany Pt. 00:22 Patient left the ED. curtis Signatures: Dispatcher [employer] EDMS Davina Gutierrez, RN RN kmg1 Nathaniel, Sangeeta Pelayo, RN RN curtis Emanuel, Luís, Manager Filter Unit ml3 Pari Ramsey, VERIFICATION MANAGER VERIFICATION MANAGER Noreen Maria, PERFECT BIND MACHINE OPERATOR PERFECT BIND MACHINE OPERATOR ar3 Kelly Wilkerson,RN RN ld5 Fariha Grossman, PERFECT BIND MACHINE OPERATOR PERFECT BIND MACHINE OPERATOR italia Ama StewartRN RN js13 Elena Tellez Nicole nb2 Morgan Paez, PERFECT BIND MACHINE OPERATOR PERFECT BIND MACHINE OPERATOR jmv Ewelina Mix,RN RN mv5 Corrections: (The following items were deleted from the chart) 08/26 23:57 23:32 Pulse 86bpm; Monitor; Pulse Ox 93%; mv5 mv5 23:57 23:48 Temp 100.4F Temporal; italia mv5 MTDD
[2016-08-27] MEDS: PANTOPRAZOLE 40MG INJ (PROTONIX) (C9113) IV SCH ×2 (00:37→20:36)
[2016-08-27] MEDS: NS 1,000 ML IV SCH ×2 (00:37→06:45)
--- NOTE | 2016-08-27 06:34 | ECGEPIP ---
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
[2016-08-27 07:17] LABS: BASO % 0.1 % (0.0-1.0); EOS # 0.1 K/mm3 (0.0-0.50); EOS % 0.5 % (0.0-3.0); LARGE UNSTAINED CELL # 0.1 K/mm3 (0.0-0.4); LARGE UNSTAINED CELL % 0.9 % (0.0-4.0); LYMPH # 0.9 K/mm3 (1.5-4.5); MEAN CORPUSCULAR HEMOGLOBIN 33.6 pg (27.0-33.0); MEAN CORPUSCULAR HGB CONC 36.1 g/dl (32.0-36.5); MEAN CORPUSCULAR VOLUME 93.2 fl (80.0-96.0); MONO # 0.7 K/mm3 (0.0-0.8); MONO % 4.8 % (0.0-5.0); NEUTROPHILS # 11.6 K/mm3 (1.8-7.7); NEUTROPHILS % 86.7 % (36.0-66.0); PLATELET COUNT, AUTOMATED 194 k/mm3 (150-450); WHITE BLOOD COUNT 13.4 K/mm3 (4.0-10.0)
--- NOTE | 2016-08-27 07:24 | REP ---
CT STUDY OF THE BRAIN WITHOUT CONTRAST: HISTORY: Altered mental status. Comparison CT study is from August 23, 2015. CT FINDINGS: Preliminary digital content development specialist radiograph is unremarkable. There are biparietal radiolucencies again noted consistent with right parietal foramina. In any event, this is chronic and unchanged. No other bony defect is seen on bone window settings. There is mild vascular calcification. No significant paranasal sinus disease is seen. No intraorbital abnormality is seen. On soft tissue window settings, there are new low density lesions. The largest of these is in the right basal ganglia involving the head of the caudate nucleus, the anterior limb of the right internal capsule, and the anterior portion of the right basal ganglia. This area measures 2.6 cm in greatest diameter. There is some effacement of the frontal horn of the lateral ventricle as a result of mild swelling here. There is a second low density area in the worthy matter and periventricular white matter of the right posterior frontal lobe. This is new from the September 11, 2015 prior study. In addition, there is a linear hyperdensity 4 mm in diameter in the left frontal region near the foramen of Reyes just above the bois forte of Roberto. This could be a small acute thrombus. Mild small vessel changes are noted. The exam is otherwise unremarkable. IMPRESSION: Two new low-density lesions in the right cerebral hemisphere, right basal ganglia and right posterior frontal lobe worthy matter; consistent with infarction. Hyperdense vessel may be an acute vascular thrombus versus a tiny parenchymal bleed in the left inferior frontal lobe. Consider MRI scanning. Signed by Pato Branham MD 08/27/2016 08:22 A
--- NOTE | 2016-08-27 07:25 | REP ---
PORTABLE CHEST X-RAY: Single view. HISTORY: Altered mental status. FINDINGS: EKG monitoring electrodes overlie the chest. Right hemidiaphragm is somewhat elevated. Heart is enlarged. No infiltrate is seen. Pleural angles are sharp. Pulmonary vasculature is not increased. IMPRESSION: Elevated right hemidiaphragm and cardiomegaly. Otherwise no acute disease. Signed by Pato Branham MD 08/27/2016 08:22 A
--- NOTE | 2016-08-27 07:31 | REP ---
LEFT HIP AND PELVIS: Three views. HISTORY: Trauma. FINDINGS: AP view of the pelvis demonstrates an intact bony pelvic ring. No sacral or pelvic fracture is seen. Proximal femurs are intact. A Faulkner catheter is seen. AP and frog-leg views of the left hip show smooth rounded femoral head and intact hip joint space. Periarticular soft tissues are unremarkable. No fracture is seen. IMPRESSION: No pelvic or hip fracture noted. Signed by Pato Branham MD 08/27/2016 08:23 A
[2016-08-27 07:36] LABS: ALBUMIN/GLOBULIN RATIO 0.97 (1.00-1.93); ALKALINE PHOSPHATASE 54 U/L (45-117); ALT/SGPT 133 U/L (12-78); ANION GAP 10 MEQ/L (8-16); AST/SGOT 393 U/L (15-37); BILIRUBIN,TOTAL 0.7 MG/DL (0.2-1.0); BLOOD UREA NITROGEN 40 MG/DL (7-18); CARBON DIOXIDE LEVEL 27 MEQ/L (21-32); CHLORIDE LEVEL 109 MEQ/L (98-107); CREATININE FOR GFR 1.26 MG/DL (0.70-1.30); GLOMERULAR FILTRATION RATE > 60.0 (>49); GLUCOSE, FASTING 119 MG/DL (80-110); MAGNESIUM LEVEL 2.6 MG/DL (1.8-2.4); POTASSIUM SERUM 3.3 MEQ/L (3.5-5.1); SODIUM LEVEL 146 MEQ/L (136-145); TOTAL PROTEIN 6.1 GM/DL (6.4-8.2)
--- NOTE | 2016-08-27 08:33 | IPNPDOC ---
Assessment/Plan Date Seen The patient was seen on 08/27/16. 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, high right frontal lobe, and smaller foci along the bilateral medial frontal lobes * unknown etiology, will order EDGAR for am to rule out Cardioembolic event * Dr Ken is consulted * continue asa (2) HTN (hypertension) Status: Chronic Response to Treatment: Stable (3) Seizure disorder Status: Chronic Problem Text: * pt is normally on phenytoin but level was subtherapeutic at 4.7 * received a bolus 2/ * now on 100 TID (4) Hypokalemia Status: Acute Problem Text: * will order K run 20meq (5) Leukocytosis Status: Acute Response to Treatment: Improving Problem Text: * likely reactive * blood cx, urine cx, and mrsa screen pending (6) ROCAEL (acute kidney injury) Status: Resolved Problem Text: was likely due to rhabdo, pt was on the floor for an unknown period of time continue IV fluids (7) Rhabdomyolysis Status: Acute Response to Treatment: Improving Problem Text: * continue IV hydration * NS 150 cc/hr Plan / VTE VTE Prophylaxis Ordered?: Yes Plan / Urinary Catheter Reason for insertion/continuin: Critical Pt monitoring Subjective Review of Systems CC/HPI The patient is a 66-year-old male admitted with a reason for visit of Acute Metabolic Encephalopathy. General: Reports: ROS Unobtainable Objective Physical Examination General Exam: Positive: No Acute Distress, Other (open his eyes and can follow some commands but doesn't answer questions) Eye Exam: Positive: Conjunctiva & lids normal ENT Exam: Positive: Mucous membr. moist/pink Neck Exam: Positive: Supple Heart Exam: Positive: Other (occasional extra beat), Rate Normal, Regular Rhythm Abdomen Exam: Positive: Normal bowel sounds, Soft Extremity Exam: Positive: Normal pulses, Negative: Clubbing, Cyanosis, Edema Neuro Exam: Positive: Other (left grib weaker than right, moves right foot but not left sided lower extremity, no facial droop) Vital Signs/I&O Vital Signs Date Time Temp Pulse Resp B/P Pulse Ox O2 Delivery O2 Flow Rate FiO2 08/27/16 04:00 98.7 80 18 167/95 92 Room Air I&O- Last 24 Hours up to 6 AM 08/27/16 06:00 Intake Total 750 ml Output Total 290 ml Balance 460 ml Laboratory Data Labs 24H Laboratory Tests 2 08/26/16 16:31: Aspartate Amino Transf (AST/SGOT) 300H, Alanine Aminotransferase (ALT/SGPT) 105H , Alkaline Phosphatase 77, Total Bilirubin 0.8, Direct Bilirubin 0.3H, Albumin 4.2, Albumin/Globulin Ratio 1.23, Anion Gap 16, White Blood Count 19.1H, Red Blood Count 4.98, Hemoglobin 16.6, Hematocrit 47.4, Mean Corpuscular Volume 95.2 , Mean Corpuscular Hemoglobin 33.5H, Mean Corpuscular Hemoglobin Concent 35.2, Red Cell Distribution Width 12.8, Platelet Count 275, Neutrophils (%) (Auto) 90.7H, Lymphocytes (%) (Auto) 4.2L, Monocytes (%) (Auto) 4.5, Eosinophils (%) ( Auto) 0.0, Basophils (%) (Auto) 0.0, Neutrophils # (Auto) 17.3H, Lymphocytes # ( Auto) 0.8L, Monocytes # (Auto) 0.9H, Eosinophils # (Auto) 0.0, Basophils # (Auto ) 0.0, Calcium Level 9.0, Creatine Kinase MB 171.9H, Creatine Kinase MB Relative Index 1.28, Large Unclassified Cells # 0.1, Large Unclassified Cells % 0.4, Phenytoin (Dilantin) Level 4.7L, Thyroid Stimulating Hormone (TSH) 0.541, Total Creatine Kinase 29163G, Total Protein 7.6, Troponin I 0.02 08/26/16 17:05: Urine Amorphous Sediment SMALLH, Urine Amphetamine Level NEGATIVE, Urine Benzodiazepines Screen NEGATIVE, Urine Cannabinoids NEGATIVE, Urine Cocaine Metabolite NEGATIVE, Urine Opiates Screen NEGATIVE, Urine Appearance CLOUDYH, Urine Color AKASH, Urine pH 5.0, Urine Specific [place] 1.024, Urine Protein 2+H , Urine Glucose (UA) 1+H, Urine Ketones TRACEH, Urine Urobilinogen 0.2, Urine Bilirubin NEGATIVE, Urine Leukocyte Esterase NEGATIVE, Urine Bacteria (Auto) 1+H , Urine Barbiturates, Qualitative NEGATIVE, Urine Blood 3+H, Urine Calcium Carbonate Cryst(Auto) , Urine Calcium Oxalate Cryst (Auto) , Urine Calcium Phosphate Cassidy (Auto) , Urine Cellular Casts , Urine Cystine Crystals , Urine Granular Casts (Auto) , Urine Hyaline Casts (Auto) 3, Urine Leucine Crystals , Urine Methadone Screen NEGATIVE, Urine Mucus (Auto) SMALL, Urine Myoglobin POSITIVE, Urine Nitrite NEGATIVE, Urine Oval Fat Bodies (Auto) , Urine RBC (Auto ) 3, Urine Renal Epithelial Cells , Urine Sperm (Auto) , Urine Squamous Epithelial Cells 1, Urine Transitional Epithelial Cells , Urine Trichomonas ( Auto) , Urine Tricyclic Antidepressants NEGATIVE, Urine Triple Phosphate Cryst ( Auto) , Urine Tyrosine Crystals , Urine Uric Acid Crystals (Auto) , Urine WBC ( Auto) 7H, Urine Waxy Casts (Auto) , Urine Yeast-Like Cells (Auto) 08/26/16 18:06: Arterial Blood pH 7.439, Arterial Blood Partial Pressure CO2 27.4L, Arterial Blood Partial Pressure O2 82.7, Arterial Blood Total CO2 19.0L, Arterial Blood HCO3 18.2L, Arterial Blood Base Excess -4.3L, Arterial Blood Oxygen Saturation 95.8, Blood Gas Bicarbonate Standard 20.9L, Oxygen Delivery Device NASAL FABRIZIO 08/26/16 21:04: Creatine Kinase MB 232.7H, Creatine Kinase MB Relative Index 1.08, Total Creatine Kinase 52347F, Troponin I 0.05#, Lactic Acid (Sepsis) 2.0 08/27/16 02:23: Urine Amorphous Sediment , Urine Appearance CLOUDYH, Urine Color AKASH, Urine pH 6.0, Urine Specific [place] 1.021, Urine Protein 2+H, Urine Glucose (UA) NEGATIVE, Urine Ketones 1+H, Urine Urobilinogen 0.2, Urine Bilirubin NEGATIVE, Urine Leukocyte Esterase NEGATIVE, Urine Bacteria (Auto) 1+H, Urine Blood 3+H, Urine Calcium Carbonate Cryst(Auto) , Urine Calcium Oxalate Cryst (Auto) , Urine Calcium Phosphate Cassidy (Auto) , Urine Cellular Casts , Urine Cystine Crystals , Urine Granular Casts (Auto) 4, Urine Hyaline Casts (Auto) 4, Urine Leucine Crystals , Urine Mucus (Auto) SMALL, Urine Nitrite NEGATIVE, Urine Oval Fat Bodies (Auto) , Urine RBC (Auto) 5H, Urine Random Creatinine 220.0, Urine Random Osmolality 737, Urine Random Sodium 10, Urine Renal Epithelial Cells , Urine Sperm (Auto) , Urine Squamous Epithelial Cells 0, Urine Transitional Epithelial Cells , Urine Trichomonas (Auto) , Urine Triple Phosphate Cryst (Auto ) , Urine Tyrosine Crystals , Urine Uric Acid Crystals (Auto) , Urine WBC (Auto ) 12H, Urine Waxy Casts (Auto) , Urine Yeast-Like Cells (Auto) 08/27/16 02:24: Urine Myoglobin POSITIVE 08/27/16 07:04: Blood Urea Nitrogen 40H, Creatinine 1.26, Sodium Level 146H, Potassium Level 3.3L, Chloride Level 109H, Carbon Dioxide Level 27, Calcium Level 8.0L, Aspartate Amino Transf (AST/SGOT) 393H, Alanine Aminotransferase (ALT/SGPT) 133H , Total Creatine Kinase 36879J, Alkaline Phosphatase 54, Total Bilirubin 0.7, Total Protein 6.1L, Albumin 3.0#L, Albumin/Globulin Ratio 0.97L, Anion Gap 10, White Blood Count 13.4H, Red Blood Count 4.37, Hemoglobin 14.7, Hematocrit 40.8L , Mean Corpuscular Volume 93.2, Mean Corpuscular Hemoglobin 33.6H, Mean Corpuscular Hemoglobin Concent 36.1, Red Cell Distribution Width 13.0, Platelet Count 194, Neutrophils (%) (Auto) 86.7H, Lymphocytes (%) (Auto) 7.0L, Monocytes (%) (Auto) 4.8, Eosinophils (%) (Auto) 0.5, Basophils (%) (Auto) 0.1, Neutrophils # (Auto) 11.6H, Lymphocytes # (Auto) 0.9L, Monocytes # (Auto) 0.7, Eosinophils # (Auto) 0.1, Basophils # (Auto) 0.0, Creatine Kinase MB 89.0H, Creatine Kinase MB Relative Index 0.65, Glomerular Filtration Rate > 60.0, Large Unclassified Cells # 0.1, Large Unclassified Cells % 0.9, Magnesium Level 2.6H, Troponin I 0.05 CBC/BMP Laboratory Tests 08/26/16 16:31 Red Blood Count 4.98, Mean Corpuscular Volume 95.2, Mean Corpuscular Hemoglobin 33.5 H, Mean Corpuscular Hemoglobin Concent 35.2, Red Cell Distribution Width 12.8, Neutrophils (%) (Auto) 90.7 H, Lymphocytes (%) (Auto) 4.2 L, Monocytes (% ) (Auto) 4.5, Eosinophils (%) (Auto) 0.0, Basophils (%) (Auto) 0.0, Neutrophils # (Auto) 17.3 H, Lymphocytes # (Auto) 0.8 L, Monocytes # (Auto) 0.9 H, Eosinophils # (Auto) 0.0, Basophils # (Auto) 0.0 08/27/16 07:04 Red Blood Count 4.37, Mean Corpuscular Volume 93.2, Mean Corpuscular Hemoglobin 33.6 H, Mean Corpuscular Hemoglobin Concent 36.1, Red Cell Distribution Width 13.0, Neutrophils (%) (Auto) 86.7 H, Lymphocytes (%) (Auto) 7.0 L, Monocytes (% ) (Auto) 4.8, Eosinophils (%) (Auto) 0.5, Basophils (%) (Auto) 0.1, Neutrophils # (Auto) 11.6 H, Lymphocytes # (Auto) 0.9 L, Monocytes # (Auto) 0.7, Eosinophils # (Auto) 0.1, Basophils # (Auto) 0.0, Calcium Level 8.0 L, Aspartate Amino Transf (AST/SGOT) 393 H, Alanine Aminotransferase (ALT/SGPT) 133 H, Total Creatine Kinase 30701 H, Alkaline Phosphatase 54, Total Bilirubin 0.7, Total Protein 6.1 L, Albumin 3.0 #L Microbiology Microbiology 08/26/16 Blood Culture, Received Pending 08/27/16 MRSA Screen, Received Pending 08/27/16 Urine Culture, Received Pending VAISHNAVI JOHNSTON DO Aug 27, 2016 08:33
[2016-08-27] MEDS ORDERED: ASPIRIN ENTERIC 325 MG TAB PO SCH (09:00)
[2016-08-27] MEDS ORDERED: KCL 10MEQ IN 100ML SWI (KRUN) 10 MEQ in APPROPRIATE DILUENT 1 EA IV SCH ×2 (09:00)
--- NOTE | 2016-08-27 10:06 | REP ---
DUPLEX CAROTID SONOGRAPHY: HISTORY: Evaluate for stenosis. FINDINGS: Antegrade flow was observed in both vertebral arteries. RIGHT CAROTID: The right common carotid artery is unremarkable on two-dimensional scanning. There is mild mixed plaquing in the bulb and proximal ICA on two-dimensional scanning on the right side. Color flow and spectral Doppler interrogation are unremarkable however. Velocity Chart Right Carotid: PSV EDV Right CCA 67 cm/s Right ICA 37 cm/s 87 cm/s Right ECA 54 cm/s Right ICA/CCA ratio normal 0.5. IMPRESSION: 0 to 15% narrowing the right ICA. LEFT CAROTID: The left common carotid artery shows minimal diffuse intimal thickening. There is minimal mixed plaquing in the bulb and proximal ICA on the left side. Color flow and spectral Doppler interrogation are unremarkable on the left. Velocity Chart Left Carotid: PSV EDV Left CCA 70 cm/s Left ICA 36 cm/s 14 cm/s Left ECA 68 cm/s Left ICA/CCA ratio normal 0.5. IMPRESSION: 0 to 15% category narrowing in the left ICA by Doppler velocity criteria. Signed by Pato Branham MD 08/27/2016 11:02 A
[2016-08-27] MEDS: PHENYTOIN ER 100 MG CAP PO SCH ×4 (11:15→22:18)
--- NOTE | 2016-08-27 12:14 | ECHO ---
DATE OF PROCEDURE: 08/27/2016 REFERRING PHYSICIAN: Dr. Lizet Guerrero. INDICATION: Cerebrovascular accident. The patient measures 72 inches and weighs 209 pounds. DIMENSIONS: IVS - 1.3 LV - 5.2 LVPW - 1.3 LA - 4.5 Aorta - 4.1 Ascending aorta - 4.6 RV - 3.3 FINDINGS: The study is of acceptable technical quality even though limited by patient's body habitus. Left ventricle is normal size and grossly normal contractility with estimated EF around 55 to 60%. Right ventricle does not appear markedly enlarged. Left atrium is probably moderately enlarged. Right atrium is normal size. Aortic valve was poorly visualized. I cannot comment on its structure and I cannot even determine whether it has two or three cusps. Mitral valve appears normal. Tricuspid valve also appears normal. Pulmonic valve was not well seen. No pericardial effusion is noted. Inferior vena cava is normal size. Aortic root is mildly dilated at 4.1 cm. Visualized segment of ascending aorta is even more dilated at 4.6 cm. Abdominal aorta was not seen. Doppler interrogation reveals no aortic stenosis and trace insufficiency. There is no significant mitral valve disease. There is trace tricuspid insufficiency with calculated pulmonary artery pressure within normal limits. Pulmonic valve was not well seen. Mitral inflow pattern and tissue Doppler imaging of mitral annulus reveal grade 1 diastolic dysfunction. CONCLUSION: 1. Study is of acceptable technical quality. 2. Normal LV size with mild LVH and grossly normal LV systolic function. Grade 1 diastolic dysfunction. 3. Mild aortic insufficiency. I am unable to determine whether aortic valve has two or three cusps. 4. Normal central venous pressure and probably normal pulmonary artery pressure. 5. Dilated aortic root (4.1 cm) and visualized segment of ascending aorta ( 4.6 cm). COMMENT: SBE prophylaxis is not recommended. Provided the dilatation of ascending aorta was not previously known, I recommend a CT or CT angiography of the chest to visualize whole thoracic aorta. [facility]
[2016-08-27] MEDS: LOSARTAN 50 MG TAB PO SCH (15:14)
[2016-08-27] MEDS: ASPIRIN 325 MG TAB PO SCH (15:14)
[2016-08-27] MEDS: ATORVASTATIN 20 MG TAB PO SCH ×2 (20:36→22:18)
[2016-08-27] MEDS ORDERED: METOPROLOL 5 MG/5 ML VIAL IV STA (22:32)
[2016-08-27] MEDS ORDERED: METOPROLOL TART 25 MG TABLET PO ONE (23:30)
[2016-08-28] VITALS (9 sets, daily range): BP systolic 139–162; BP diastolic 76–96; PULSE 76–150
[2016-08-28] MEDS ORDERED: METOPROLOL 5 MG/5 ML VIAL IV STA (00:34)
[2016-08-28 01:02] LABS: BLOOD UREA NITROGEN 31 MG/DL (7-18); CALCIUM LEVEL 7.9 MG/DL (8.8-10.2); CHLORIDE LEVEL 108 MEQ/L (98-107); CREATININE FOR GFR 1.18 MG/DL (0.70-1.30); GLOMERULAR FILTRATION RATE > 60.0 (>49); GLUCOSE, FASTING 107 MG/DL (80-110); MAGNESIUM LEVEL 2.4 MG/DL (1.8-2.4); POTASSIUM SERUM 3.5 MEQ/L (3.5-5.1); SODIUM LEVEL 144 MEQ/L (136-145)
[2016-08-28 01:15] LABS: ANION GAP 13 MEQ/L (8-16); CARBON DIOXIDE LEVEL 23 MEQ/L (21-32)
[2016-08-28] MEDS: KCL 20MEQ in NS 1000ML 1,000 ML IV SCH ×4 (01:19→21:57)
[2016-08-28 05:19] LABS: BASO % 0.2 % (0.0-1.0); EOS # 0.2 K/mm3 (0.0-0.50); EOS % 1.6 % (0.0-3.0); LARGE UNSTAINED CELL # 0.1 K/mm3 (0.0-0.4); LARGE UNSTAINED CELL % 0.7 % (0.0-4.0); LYMPH # 1.5 K/mm3 (1.5-4.5); LYMPH % 11.6 % (24.0-44.0); MEAN CORPUSCULAR HGB CONC 34.7 g/dl (32.0-36.5); MEAN CORPUSCULAR VOLUME 95.2 fl (80.0-96.0); MONO # 0.8 K/mm3 (0.0-0.8); MONO % 6.5 % (0.0-5.0); NEUTROPHILS % 79.4 % (36.0-66.0); PLATELET COUNT, AUTOMATED 177 k/mm3 (150-450); RED CELL DISTRIBUTION WIDTH 13.5 % (11.5-14.5); WHITE BLOOD COUNT 12.6 K/mm3 (4.0-10.0)
[2016-08-28] MEDS: METOPROLOL TART 25 MG TABLET PO SCH ×3 (05:40→21:58)
[2016-08-28] MEDS: ACETAMINOPHEN TAB 650MG DOSE (2X325MG) PO PRN (05:41)
[2016-08-28 05:42] LABS: ALBUMIN 2.7 GM/DL (3.2-5.2); ALKALINE PHOSPHATASE 52 U/L (45-117); ALT/SGPT 127 U/L (12-78); ANION GAP 8 MEQ/L (8-16); AST/SGOT 312 U/L (15-37); BILIRUBIN,TOTAL 0.7 MG/DL (0.2-1.0); BLOOD UREA NITROGEN 27 MG/DL (7-18); CALCIUM LEVEL 7.8 MG/DL (8.8-10.2); CARBON DIOXIDE LEVEL 30 MEQ/L (21-32); CHLORIDE LEVEL 107 MEQ/L (98-107); CREATININE FOR GFR 1.06 MG/DL (0.70-1.30); GLOMERULAR FILTRATION RATE > 60.0 (>49); GLUCOSE, FASTING 113 MG/DL (80-110); MAGNESIUM LEVEL 2.4 MG/DL (1.8-2.4); POTASSIUM SERUM 3.4 MEQ/L (3.5-5.1); SODIUM LEVEL 145 MEQ/L (136-145); TOTAL PROTEIN 5.7 GM/DL (6.4-8.2)
--- NOTE | 2016-08-28 06:46 | ECGEPIP ---
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
[2016-08-28] MEDS: ASPIRIN 325 MG TAB PO SCH (09:56)
[2016-08-28] MEDS: LOSARTAN 50 MG TAB PO SCH (09:57)
[2016-08-28] MEDS: PHENYTOIN ER 100 MG CAP PO SCH ×3 (09:57→21:58)
--- NOTE | 2016-08-28 10:04 | CR ---
DATE OF CONSULTATION: 08/27/2016 REFERRING PHYSICIAN: Dr. Lizet Guerrero REASON FOR CONSULTATION: Stroke and rhabdomyolysis. HISTORY OF PRESENT ILLNESS: Brett Haddad is a 66-year-old man with a history of hypertension and seizures who was brought to emergency department by emergency medical services because he was found down on the ground at his home. His neighbors noted that the patient had his shower running for a long duration. When they went to find out, they found him on the ground. He was brought in by emergency medical services to [facility] emergency department where a CT scan of the head revealed multiple bilateral frontal ischemic strokes and possible thrombus in left anterior cerebral artery. The patient remained lethargic in the emergency department, although would wake up and was oriented to place and person. He was unable to give details about his history. The patient states that he has history of seizures since 5 years of age. He states that he was fine on the morning of his admission to [facility] but does not remember details afterwards. He denies any headache or neck pain. He has a history of off and on chronic low back pain. He states that he does not take his medications regularly. PAST MEDICAL HISTORY: 1. Hypertension. 2. Cholecystectomy. 3. Seizures. ALLERGIES: None. HOME MEDICATIONS: - Lasix 20 mg by mouth daily - losartan 50 mg by mouth daily - Dilantin 1 mg by mouth three times a day - amlodipine 10 mg by mouth daily FAMILY HISTORY: He denies any family history of stroke or seizures. SOCIAL HISTORY: He denies smoking, alcohol or illicit drugs. REVIEW OF SYSTEMS: All systems were reviewed and were found to be noncontributory except as mentioned in the history present illness. PHYSICAL EXAMINATION: Temperature 98.7, pulse 80, respiratory 18, blood pressure 167/95, 92% saturation on room air. HEART: Regular rate and rhythm. LUNGS: Clear to auscultation. ABDOMEN: Soft, nontender, nondistended. NEUROLOGIC: The patient is awake, alert, oriented to place, person and year. Normal speech, comprehension and repetition. Extraocular muscles are intact. No facial weakness. Tongue and uvula are midline. 5/5 strength on right side. Right plantar is downgoing. Left arm strength is 4/5 and left leg strength is 3/5. His left plantar is upgoing. Normal sensation to light touch, pinprick, vibration. No dysmetria. Gait could not be tested. DIAGNOSTIC STUDIES His CT scan of head and MRI scan of brain were reviewed and showed multiple small bilateral frontal strokes and a medium-sized stroke in right basal ganglia. MRA of brain showed occlusion of bilateral anterior cerebral arteries. Carotid ultrasound showed less than 15% bilateral carotid artery stenosis. Increased signal in left frontal head region close to midline is likely a thrombus in left anterior cerebral artery. ASSESSMENT: 1. Right basal ganglia ischemic stroke. 2. Multiple bilateral frontal ischemic strokes. 3. Occlusion of bilateral anterior cerebral artery. 4. History of seizures. PLAN 1. Continue telemetry monitoring and perform transesophageal echocardiogram. 2. Blood tests to rule out coagulopathy and vasculopathy. 3. Bilateral frontal strokes can also be seen if people have a variant single common origin of bilateral anterior cerebral arteries. In this case, if he developed thrombus in this origin of anterior cerebral arteries, he will have strokes in bilateral frontal head regions. Cardioembolic sources also important to be ruled out in this case. 4. Aspirin 325 mg by mouth daily and Lipitor 80 mg by mouth daily. 5. Keep systolic blood pressure below 180 and diastolic blood pressure below 100. His capital AST and ALT elevation is also due to rhabdomyolysis, as these enzymes are also found in muscles. His CK reached up to 20,000 and is currently 13,498. His creatinine has decreased from 2.07-1.26. Continue gentle hydration and his CK and creatinine will decrease to normal. 6. Physical and occupational therapy. 7. Continue Dilantin 100 mg by mouth three times a day and we emphasized compliance. The patient states that he does not always take his medications. 8. Follow with our office in 1-2 weeks after hospital discharge.
[2016-08-28] MEDS ORDERED: SLF 3 ML SYR IV PRN (16:00)
[2016-08-28] MEDS: ATORVASTATIN 20 MG TAB PO SCH (21:57)
[2016-08-28] MEDS: PANTOPRAZOLE 40MG INJ (PROTONIX) (C9113) IV SCH (21:57)
[2016-08-28] MEDS: SLF 3 ML SYR IV SCH (21:59)
--- NOTE | 2016-08-28 23:09 | IPNPDOC ---
Assessment/Plan Date Seen The patient was seen on 08/28/16. 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, high right frontal lobe, and smaller foci along the bilateral medial frontal lobes * unknown etiology, will order EDGAR for am to rule out Cardioembolic event * Dr Ken is consulted * continue asa (2) HTN (hypertension) Status: Chronic Response to Treatment: Stable (3) Seizure disorder Status: Chronic Problem Text: * pt is normally on phenytoin but level was subtherapeutic at 4.7 * received a bolus 2/ * now on 100 TID (4) Hypokalemia Status: Acute Problem Text: * will order K run 20meq (5) Leukocytosis Status: Acute Response to Treatment: Improving Problem Text: * likely reactive * blood cx, urine cx, and mrsa screen pending (6) ROCAEL (acute kidney injury) Status: Resolved Problem Text: was likely due to rhabdo, pt was on the floor for an unknown period of time continue IV fluids (7) Rhabdomyolysis Status: Acute Response to Treatment: Improving Problem Text: * continue IV hydration * NS 150 cc/hr Plan / VTE VTE Prophylaxis Ordered?: Yes Plan / Urinary Catheter Reason for insertion/continuin: Critical Pt monitoring Subjective Review of Systems CC/HPI The patient is a 66-year-old male admitted with a reason for visit of Acute Metabolic Encephalopathy. General: Reports: ROS Unobtainable Objective Physical Examination General Exam: Positive: No Acute Distress, Other (open his eyes and can follow some commands but doesn't answer questions) Eye Exam: Positive: Conjunctiva & lids normal ENT Exam: Positive: Mucous membr. moist/pink Neck Exam: Positive: Supple Heart Exam: Positive: Other (occasional extra beat), Rate Normal, Regular Rhythm Abdomen Exam: Positive: Normal bowel sounds, Soft Extremity Exam: Positive: Normal pulses, Negative: Clubbing, Cyanosis, Edema Neuro Exam: Positive: Other (left grib weaker than right, moves right foot but not left sided lower extremity, no facial droop) Vital Signs/I&O Vital Signs Date Time Temp Pulse Resp B/P Pulse Ox O2 Delivery O2 Flow Rate FiO2 08/28/16 21:58 83 180/80 08/28/16 16:00 98.5 18 96 Room Air I&O- Last 24 Hours up to 6 AM 08/28/16 06:00 Intake Total 1275 ml Output Total 150 ml Balance 1125 ml Laboratory Data Labs 24H Laboratory Tests 2 08/27/16 23:03: Anion Gap 13, Blood Urea Nitrogen 31H, Creatinine 1.18, Sodium Level 144, Potassium Level 3.5, Chloride Level 108H, Carbon Dioxide Level 23, Calcium Level 7.9L, Total Creatine Kinase 31595F, Creatine Kinase MB 20.8H, Creatine Kinase MB Relative Index 0.18, Glomerular Filtration Rate > 60.0, Magnesium Level 2.4, Troponin I 0.04# 08/28/16 05:05: Anion Gap 8, Blood Urea Nitrogen 27H, Creatinine 1.06, Sodium Level 145, Potassium Level 3.4L, Chloride Level 107, Carbon Dioxide Level 30, Calcium Level 7.8L, Total Creatine Kinase 8624H, Creatine Kinase MB 14.4H, Creatine Kinase MB Relative Index 0.16, Glomerular Filtration Rate > 60.0, Magnesium Level 2.4, Troponin I 0.07#, Aspartate Amino Transf (AST/SGOT) 312H, Alanine Aminotransferase (ALT/SGPT) 127H, Alkaline Phosphatase 52, Total Bilirubin 0.7, Total Protein 5.7L, Albumin 2.7L, Albumin/Globulin Ratio 0.90L, White Blood Count 12.6H, Red Blood Count 4.12L, Hemoglobin 13.6L, Hematocrit 39.2L, Mean Corpuscular Volume 95.2, Mean Corpuscular Hemoglobin 33.0, Mean Corpuscular Hemoglobin Concent 34.7, Red Cell Distribution Width 13.5, Platelet Count 177, Neutrophils (%) (Auto) 79.4H, Lymphocytes (%) (Auto) 11.6L, Monocytes (%) (Auto ) 6.5H, Eosinophils (%) (Auto) 1.6, Basophils (%) (Auto) 0.2, Neutrophils # ( Auto) 10.0H, Lymphocytes # (Auto) 1.5, Monocytes # (Auto) 0.8, Eosinophils # ( Auto) 0.2, Basophils # (Auto) 0.0, Large Unclassified Cells # 0.1, Large Unclassified Cells % 0.7 CBC/BMP Laboratory Tests 08/27/16 23:03 Calcium Level 7.9 L, Total Creatine Kinase 11348 H 08/28/16 05:05 Calcium Level 7.8 L, Total Creatine Kinase 8624 H, Aspartate Amino Transf (AST/ SGOT) 312 H, Alanine Aminotransferase (ALT/SGPT) 127 H, Alkaline Phosphatase 52 , Total Bilirubin 0.7, Total Protein 5.7 L, Albumin 2.7 L, Red Blood Count 4.12 L, Mean Corpuscular Volume 95.2, Mean Corpuscular Hemoglobin 33.0, Mean Corpuscular Hemoglobin Concent 34.7, Red Cell Distribution Width 13.5, Neutrophils (%) (Auto) 79.4 H, Lymphocytes (%) (Auto) 11.6 L, Monocytes (%) ( Auto) 6.5 H, Eosinophils (%) (Auto) 1.6, Basophils (%) (Auto) 0.2, Neutrophils # (Auto) 10.0 H, Lymphocytes # (Auto) 1.5, Monocytes # (Auto) 0.8, Eosinophils # (Auto) 0.2, Basophils # (Auto) 0.0 Microbiology Microbiology 08/26/16 Blood Culture - Preliminary, Resulted No Growth after 48 hours. All Specime... 08/27/16 MRSA Screen - Final, Complete 08/27/16 Urine Culture - Final, Complete VAISHNAVI JOHNSTON DO Aug 28, 2016 23:09
--- NOTE | 2016-08-29 01:22 | EDDOCDS ---
Physician Documentation [facility] Name: Brett Haddad Age: 66 yrs Sex: Male : 1950 Arrival Date: 08/26/2016 Time: 16:14 Bed MRI Private MD: Luis Hays Disposition: 08/26/16 18:23 Hospitalization ordered by Lizet Guerrero for Inpatient Admission. Preliminary diagnosis are Rhabdomyolysis, Fall in (into) shower or empty bathtub. - Bed requested for M ICU. - Status is Inpatient Admission. curtis - Condition is Stable. - Problem is new. - Symptoms are unchanged. Historical: - Allergies: no known allergies; - Home Meds: 1. Norvasc 10 mg Oral tab 1 tab once daily 2. losartan 50 mg oral tab 1 tab once daily 3. Phenytoin 100 mg Oral 1 tabs three times a day 4. Lasix 20 mg oral tab 1 tab once daily - PMHx: Hypertension; Seizures; - PSHx: Cholecystectomy; - Social history: Smoking status: Patient states was never smoker of tobacco. No barriers to communication noted, The patient speaks fluent German, Speaks appropriately for age. - Family history: Not pertinent. - : The pt / caregiver states he / she is not on anticoagulants. Home medication list is obtained from pill bottles. - Exposure Risk Screening:: None identified. Vital Signs: 08/26 16:27 BP 186 / 86 LA Supine (man/lg); Pulse 69; Resp 20; Temp 97.9(O); Pulse Ox 95% on R/A; nb2 Pain 0/10; 16:49 Weight 99.67 kg / 219.73 lbs; js13 16:51 BP 152 / 93 (auto/); js13 16:51 Pulse 84 MON; Resp 18; Pulse Ox 97% on R/A; js13 21:39 BP 151 / 96 (auto/); mv5 21:41 Pulse 76 MON; Pulse Ox 95% ; mv5 21:45 BP 158 / 85 (auto/); mv5 21:46 Pulse 77 MON; Pulse Ox 92% ; mv5 22:00 BP 155 / 85 (auto/); mv5 22:00 Pulse 78 MON; Pulse Ox 93% ; mv5 22:15 BP 151 / 74 (auto/); mv5 22:16 Pulse 80 MON; Pulse Ox 93% ; mv5 22:30 BP 162 / 82 (auto/); mv5 22:31 Pulse 79 MON; Pulse Ox 92% ; mv5 22:45 BP 151 / 73 (auto/); mv5 22:46 Pulse 81 MON; Pulse Ox 92% ; mv5 23:00 BP 156 / 89 (auto/); mv5 23:00 Pulse 79 MON; Pulse Ox 92% ; mv5 23:15 BP 155 / 84 (auto/); mv5 23:16 Pulse 84 MON; Pulse Ox 91% ; mv5 23:30 BP 159 / 77 (auto/); mv5 23:32 BP 157 / 77; Pulse 86 MON; Resp 16; Temp 100.4(TE); Pulse Ox 93% on R/A; mv5 23:48 BP 157 / 77; Pulse 86; Resp 16; Temp 100.4(TE); Pulse Ox 93% on R/A; mv5 MDM: 16:30 Urogynaecologist/Pulse Ox/q 15 min VS ordered. le 16:30 IV Saline Lock ordered. le 16:30 Oxygen at 4L/Min NC or Home dosage ordered. le 16:30 Rhythm Strip to chart ordered. le 16:31 Faulkner ordered. le 16:31 CBC with Diff Ordered. EDMS 16:31 Cardiac Injury Profile Ordered. EDMS 16:31 Drug Eval Toxicology ED Only Ordered. EDMS 16:31 Liver Profile Ordered. EDMS 16:31 MED Profile Ordered. EDMS 16:31 Thyroid Stimulating Hormone Ordered. EDMS 16:31 Troponin Ordered. EDMS 16:31 Urinalysis Ordered. EDMS 16:31 Urine Myoglobin Screen Ordered. EDMS 16:32 Chest, 1 View Ordered. EDMS 16:32 CT Head Without Contrast Ordered. EDMS 16:32 ECG WITH READING ER PHYS+CARDIAG ordered. EDMS 16:46 Dilantin Level Ordered. EDMS 16:55 NS 0.9% 1000 ml IV at bolus once ordered. le 17:09 Hip,AP,LAT to include Pelvis Ordered. EDMS 17:11 BED REQUEST+ADM ordered. EDMS 17:52 CBC with Diff Reviewed. le 17:52 Cardiac Injury Profile Reviewed. le 17:52 Urinalysis Reviewed. le 17:52 Dilantin Level Reviewed. le 17:52 Drug Eval Toxicology ED Only Reviewed. le 17:52 Thyroid Stimulating Hormone Reviewed. le 17:52 Troponin Reviewed. le 17:52 Urine Myoglobin Screen Reviewed. le 17:56 Call Respiratory ordered. le 17:56 Phenytoin 500 mg IVPB once over 30 mins; dilute in 100ml of NS ordered. le 17:57 Call Respiratory complete. ar3 17:57 -Arterial Blood Gas Ordered. EDMS 17:59 Cardiac Injury Profile Reviewed. le 18:00 CT Hip Without Contrast Ordered. EDMS 18:21 MRI Screening Tool - Place on chart, inform RN ordered. le 18:21 -MRA-Brain without contrast Ordered. EDMS 18:21 -MRI-Brain without Ordered. EDMS 19:22 Financial registration complete. gb 19:42 MRI Screening Tool - Place on chart, inform RN complete. ml3 19:43 ECHOCARD,DOPPLER/COLOR FLOW ordered. EDMS 19:43 NPO DIET ordered. EDMS 19:44 CARDIAC INJURY PROFILE Ordered. EDMS 19:44 TROPONIN Ordered. EDMS 19:44 URINALYSIS Ordered. EDMS 19:44 CARDIAC INJURY PROFILE Ordered. EDMS 19:44 TROPONIN Ordered. EDMS 19:44 CBC WITH DIFFERENTIAL Ordered. EDMS 19:44 COMPLETE COMPHRENSIVE METABOLI Ordered. EDMS 19:44 MAGNESIUM LEVEL Ordered. EDMS 19:45 URINE CULTURE Ordered. EDMS 19:45 BLOOD CULTURES Ordered. EDMS 19:47 SODIUM,RANDOM URINE Ordered. EDMS 19:48 CREATININE,RANDOM URINE Ordered. EDMS 19:48 OSMOLALITY,URINE Ordered. EDMS 19:52 LACTIC ACID LEVEL, LACTATE Ordered. EDMS 20:12 Admission / Observation Status ordered. EDMS 20:35 Duplex,carotid (complete) Ordered. EDMS 20:41 URINE MYOGLOBIN SCREEN Ordered. EDMS 20:47 Liver Profile Reviewed. le 20:47 MED Profile Reviewed. le 20:47 -Arterial Blood Gas Reviewed. le 20:47 Thyroid Stimulating Hormone Reviewed. le 20:47 Troponin Reviewed. le 20:47 CT Hip Without Contrast Reviewed. le 21:43 CARDIAC INJURY PROFILE Ordered. EDMS 21:43 TROPONIN Ordered. EDMS 22:42 CARDIAC INJURY PROFILE Reviewed. le 22:42 TROPONIN Reviewed. le 22:42 LACTIC ACID LEVEL, LACTATE Reviewed. le 08/27 10:31 T-Sheet-- Draft Copy was scanned into [employer] and attached to record. gb Administered Medications: 08/26 17:06 Drug: NS 0.9% 1000 ml [sodium chloride 0.9 % intravenous solution] Route: IV; Rate: js13 bolus; Site: right antecubital; 18:15 Drug: Phenytoin 500 mg [phenytoin sodium 50 mg/mL intravenous solution] Route: IVPB; js13 Infused Over: 30 mins; Site: right antecubital; 19:03 Follow up: IV Status: Completed infusion; IV Intake: 50ml js13 Signatures: Dispatcher [employer] EDMS Sangeeta Armstrong, RN Kely Sears, Reg Reg gb Adelfo, Luís, Director Safety Unit ml3 Pari Ramsey, SENIOR ATTORNEY SENIOR ATTORNEY le Noreen Ross, BUN MACHINE OPERATOR BUN MACHINE OPERATOR ar3 Kelly Wilkerson RN RN ld5 Ama Stewart RN RN js13 The chart was reviewed and I authenticate all verbal orders and agree with the evaluation and treatment provided.Corrections: (The following items were deleted from the chart) 16:48 16:30 Accucheck ordered. clayton graham 21:43 19:44 CARDIAC INJURY PROFILE ordered. EDSD EDSD 21:43 19:44 TROPONIN ordered. EDSD EDMS 21:43 19:45 CREATINE PHOSPHOKINASE ordered. [facility] EDSD Attachments: 08/27 10:31 T-Sheet-- Draft Copy gb Chart Complete MTDD
--- NOTE | 2016-08-29 01:22 | EDDOCDS ---
Physician Documentation [facility] Name: Brett Haddad Age: 66 yrs Sex: Male : 1950 Arrival Date: 08/26/2016 Time: 16:14 Bed MRI Private MD: Luis Hays Disposition: 08/26/16 18:23 Hospitalization ordered by Lizet Guerrero for Inpatient Admission. Preliminary diagnosis are Rhabdomyolysis, Fall in (into) shower or empty bathtub. - Bed requested for M ICU. - Status is Inpatient Admission. curtis - Condition is Stable. - Problem is new. - Symptoms are unchanged. Historical: - Allergies: no known allergies; - Home Meds: 1. Norvasc 10 mg Oral tab 1 tab once daily 2. losartan 50 mg oral tab 1 tab once daily 3. Phenytoin 100 mg Oral 1 tabs three times a day 4. Lasix 20 mg oral tab 1 tab once daily - PMHx: Hypertension; Seizures; - PSHx: Cholecystectomy; - Social history: Smoking status: Patient states was never smoker of tobacco. No barriers to communication noted, The patient speaks fluent Slovenian, Speaks appropriately for age. - Family history: Not pertinent. - : The pt / caregiver states he / she is not on anticoagulants. Home medication list is obtained from pill bottles. - Exposure Risk Screening:: None identified. Vital Signs: 08/26 16:27 BP 186 / 86 LA Supine (man/lg); Pulse 69; Resp 20; Temp 97.9(O); Pulse Ox 95% on R/A; nb2 Pain 0/10; 16:49 Weight 99.67 kg / 219.73 lbs; js13 16:51 BP 152 / 93 (auto/); js13 16:51 Pulse 84 MON; Resp 18; Pulse Ox 97% on R/A; js13 21:39 BP 151 / 96 (auto/); mv5 21:41 Pulse 76 MON; Pulse Ox 95% ; mv5 21:45 BP 158 / 85 (auto/); mv5 21:46 Pulse 77 MON; Pulse Ox 92% ; mv5 22:00 BP 155 / 85 (auto/); mv5 22:00 Pulse 78 MON; Pulse Ox 93% ; mv5 22:15 BP 151 / 74 (auto/); mv5 22:16 Pulse 80 MON; Pulse Ox 93% ; mv5 22:30 BP 162 / 82 (auto/); mv5 22:31 Pulse 79 MON; Pulse Ox 92% ; mv5 22:45 BP 151 / 73 (auto/); mv5 22:46 Pulse 81 MON; Pulse Ox 92% ; mv5 23:00 BP 156 / 89 (auto/); mv5 23:00 Pulse 79 MON; Pulse Ox 92% ; mv5 23:15 BP 155 / 84 (auto/); mv5 23:16 Pulse 84 MON; Pulse Ox 91% ; mv5 23:30 BP 159 / 77 (auto/); mv5 23:32 BP 157 / 77; Pulse 86 MON; Resp 16; Temp 100.4(TE); Pulse Ox 93% on R/A; mv5 23:48 BP 157 / 77; Pulse 86; Resp 16; Temp 100.4(TE); Pulse Ox 93% on R/A; mv5 MDM: 16:30 Chamber Worker/Pulse Ox/q 15 min VS ordered. le 16:30 IV Saline Lock ordered. le 16:30 Oxygen at 4L/Min NC or Home dosage ordered. le 16:30 Rhythm Strip to chart ordered. le 16:31 Faulkner ordered. le 16:31 CBC with Diff Ordered. EDMS 16:31 Cardiac Injury Profile Ordered. EDMS 16:31 Drug Eval Toxicology ED Only Ordered. EDMS 16:31 Liver Profile Ordered. EDMS 16:31 MED Profile Ordered. EDMS 16:31 Thyroid Stimulating Hormone Ordered. EDMS 16:31 Troponin Ordered. EDMS 16:31 Urinalysis Ordered. EDMS 16:31 Urine Myoglobin Screen Ordered. EDMS 16:32 Chest, 1 View Ordered. EDMS 16:32 CT Head Without Contrast Ordered. EDMS 16:32 ECG WITH READING ER PHYS+CARDIAG ordered. EDMS 16:46 Dilantin Level Ordered. EDMS 16:55 NS 0.9% 1000 ml IV at bolus once ordered. le 17:09 Hip,AP,LAT to include Pelvis Ordered. EDMS 17:11 BED REQUEST+ADM ordered. EDMS 17:52 CBC with Diff Reviewed. le 17:52 Cardiac Injury Profile Reviewed. le 17:52 Urinalysis Reviewed. le 17:52 Dilantin Level Reviewed. le 17:52 Drug Eval Toxicology ED Only Reviewed. le 17:52 Thyroid Stimulating Hormone Reviewed. le 17:52 Troponin Reviewed. le 17:52 Urine Myoglobin Screen Reviewed. le 17:56 Call Respiratory ordered. le 17:56 Phenytoin 500 mg IVPB once over 30 mins; dilute in 100ml of NS ordered. le 17:57 Call Respiratory complete. ar3 17:57 -Arterial Blood Gas Ordered. EDMS 17:59 Cardiac Injury Profile Reviewed. le 18:00 CT Hip Without Contrast Ordered. EDMS 18:21 MRI Screening Tool - Place on chart, inform RN ordered. le 18:21 -MRA-Brain without contrast Ordered. EDMS 18:21 -MRI-Brain without Ordered. EDMS 19:22 Financial registration complete. gb 19:42 MRI Screening Tool - Place on chart, inform RN complete. ml3 19:43 ECHOCARD,DOPPLER/COLOR FLOW ordered. EDMS 19:43 NPO DIET ordered. EDMS 19:44 CARDIAC INJURY PROFILE Ordered. EDMS 19:44 TROPONIN Ordered. EDMS 19:44 URINALYSIS Ordered. EDMS 19:44 CARDIAC INJURY PROFILE Ordered. EDMS 19:44 TROPONIN Ordered. EDMS 19:44 CBC WITH DIFFERENTIAL Ordered. EDMS 19:44 COMPLETE COMPHRENSIVE METABOLI Ordered. EDMS 19:44 MAGNESIUM LEVEL Ordered. EDMS 19:45 URINE CULTURE Ordered. EDMS 19:45 BLOOD CULTURES Ordered. EDMS 19:47 SODIUM,RANDOM URINE Ordered. EDMS 19:48 CREATININE,RANDOM URINE Ordered. EDMS 19:48 OSMOLALITY,URINE Ordered. EDMS 19:52 LACTIC ACID LEVEL, LACTATE Ordered. EDMS 20:12 Admission / Observation Status ordered. EDMS 20:35 Duplex,carotid (complete) Ordered. EDMS 20:41 URINE MYOGLOBIN SCREEN Ordered. EDMS 20:47 Liver Profile Reviewed. le 20:47 MED Profile Reviewed. le 20:47 -Arterial Blood Gas Reviewed. le 20:47 Thyroid Stimulating Hormone Reviewed. le 20:47 Troponin Reviewed. le 20:47 CT Hip Without Contrast Reviewed. le 21:43 CARDIAC INJURY PROFILE Ordered. EDMS 21:43 TROPONIN Ordered. EDMS 22:42 CARDIAC INJURY PROFILE Reviewed. le 22:42 TROPONIN Reviewed. le 22:42 LACTIC ACID LEVEL, LACTATE Reviewed. le 08/27 10:31 T-Sheet-- Draft Copy was scanned into [employer] and attached to record. gb Administered Medications: 08/26 17:06 Drug: NS 0.9% 1000 ml [sodium chloride 0.9 % intravenous solution] Route: IV; Rate: js13 bolus; Site: right antecubital; 18:15 Drug: Phenytoin 500 mg [phenytoin sodium 50 mg/mL intravenous solution] Route: IVPB; js13 Infused Over: 30 mins; Site: right antecubital; 19:03 Follow up: IV Status: Completed infusion; IV Intake: 50ml js13 Signatures: Dispatcher [employer] EDMS Sangeeta Armstrong, RN Kely Seras, Reg Reg gb Adelfo, Luís, Vinyl Top Installer Unit ml3 Pari Ramsey, HARNESS INSTALLER HARNESS INSTALLER le Noreen Ross, SALES PROPERTY MANAGER SALES PROPERTY MANAGER ar3 Kelly Wilkerson RN RN ld5 Ama Stewart RN RN js13 The chart was reviewed and I authenticate all verbal orders and agree with the evaluation and treatment provided.Corrections: (The following items were deleted from the chart) 16:48 16:30 Accucheck ordered. clayton graham 21:43 19:44 CARDIAC INJURY PROFILE ordered. EDAR EDAR 21:43 19:44 TROPONIN ordered. EDAR EDMS 21:43 19:45 CREATINE PHOSPHOKINASE ordered. [facility] EDAR Attachments: 08/27 10:31 T-Sheet-- Draft Copy gb Chart Complete MTDD
--- NOTE | 2016-08-29 01:22 | EDDOCDS ---
Nurse's Notes [facility] Name: Brett Haddad Age: 66 yrs Sex: Male : 1950 Arrival Date: 08/26/2016 Time: 16:14 Bed MRI Private MD: Luis Hays Diagnosis: Rhabdomyolysis;Fall in (into) shower or empty bathtub Presentation: 08/26 16:19 Presenting complaint: EMS states: Neighbor called 911 due to water running all nights. ld5 Pt found down in shower with water still running. Altered LOC. Suicide/Homicide risk assessment- Unable to assess, the patient has an altered level of consciousness. 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 Transition of care: patient was not received from another setting of care. Care prior to arrival: Glucose check. 169. 16:19 Acuity: HILDA Level 2 ld5 16:19 Method Of Arrival: Ambulance ld5 Triage Assessment: 16:24 General: Appears in no apparent distress. Pain: Denies pain. Neurological: Level of ld5 Consciousness is awake, obeys commands, Oriented to person, place. EENT: redness to right eye. Respiratory: Airway is patent Respiratory effort is even, unlabored. Derm: Skin temperature is cold. 21:40 General: Appears in no apparent distress. General: Pt resting with eyes closed, wakes mv5 to voice/light tactile stim. Pt obeys commands with mildly delayed responsiveness. . Pain: Denies pain. Neurological: Level of Consciousness is obeys commands. Historical: - Allergies: no known allergies; - Home Meds: 1. Norvasc 10 mg Oral tab 1 tab once daily 2. losartan 50 mg oral tab 1 tab once daily 3. Phenytoin 100 mg Oral 1 tabs three times a day 4. Lasix 20 mg oral tab 1 tab once daily - PMHx: Hypertension; Seizures; - PSHx: Cholecystectomy; - Social history: Smoking status: Patient states was never smoker of tobacco. No barriers to communication noted, The patient speaks fluent Kiswahili, Speaks appropriately for age. - Family history: Not pertinent. - : The pt / caregiver states he / she is not on anticoagulants. Home medication list is obtained from pill bottles. - Exposure Risk Screening:: None identified. Screenin:51 Screening information is obtained from the patient. Fall risk: At risk due to age, js13 immobility, prior history of falls. Assistance ADL's: requires no assistance with activities of daily living. Abuse/DV Screen: The patient / caregiver reports he/she is: not in a situation that causes fear, pain or injury. Nutritional screening: No deficits noted. Advance Directives: There is no active DNR order. home support is adequate. Assessment: 17:37 General: Appears in no apparent distress, Behavior is appropriate for age, cooperative. js13 Pain: Denies pain. Neurological: Level of Consciousness is awake, alert, obeys commands. Cardiovascular: Rhythm is regular Chest pain is denied. Respiratory: Airway is patent Respiratory effort is even, unlabored, Respiratory pattern is regular, Breath sounds are clear. GI: Abdomen is obese, Bowel sounds present X 4 quads. Abd is soft and non tender. Derm: Skin is pink, warm & dry. Derm: Bruising that is bright red, on right lower back, right foot and right leg Patient has scrapes on his lower extremities with a dime sized pressure area on right ankle. 18:35 General: Appears in no apparent distress, Behavior is appropriate for age, cooperative. js13 Pain: Denies pain. Neurological: Level of Consciousness is awake, alert, obeys commands. Cardiovascular: Rhythm is regular Chest pain is denied. Respiratory: Airway is patent Respiratory effort is even, unlabored, Respiratory pattern is regular, symmetrical, Breath sounds are clear. GI: Abdomen is obese, Bowel sounds present X 4 quads. Abd is soft and non tender. Derm: Skin is pink, warm & dry. 19:13 General: Appears in no apparent distress, Behavior is appropriate for age, cooperative. mv5 General: Pt resting with eyes closed, wakes to voice/light tactile. Unable to complete MRI screening form at this time. Will reattempt and continue to monitor.. Neurological: Level of Consciousness is obeys commands. Cardiovascular: Rhythm is regular. Respiratory: Airway is patent Respiratory effort is even, unlabored, Respiratory pattern is regular, symmetrical. Derm: Skin is pink, warm & dry. 21:40 General: Appears in no apparent distress, Behavior is appropriate for age, cooperative. mv5 General: warm blankets provided.. Pain: Denies pain. Neurological: Level of Consciousness is obeys commands, Oriented to. Cardiovascular: Rhythm is regular. Respiratory: Airway is patent Respiratory effort is even, unlabored, Respiratory pattern is regular, symmetrical. Derm: Skin is pink, warm & dry. 23:00 General: Appears in no apparent distress, comfortable, Behavior is cooperative, quiet. curtis Pain: Denies pain. Neurological: Level of Consciousness is awake, alert, obeys commands, Oriented to person, place, time, in bilateral hand's) arm(s) Speech is normal, speaks in slow sentences, is accurate with time,date, place and current president. EENT: No deficits noted. Cardiovascular: Rhythm is sinus rhythm with unifocal PVCs. Respiratory: Airway is patent Respiratory effort is even, unlabored, Respiratory pattern is regular, symmetrical. : Faulkner in place tea colored urine. 23:41 Cardiovascular: Rhythm is occasional PVC's. mv5 Vital Signs: 16:27 BP 186 / 86 LA Supine (man/lg); Pulse 69; Resp 20; Temp 97.9(O); Pulse Ox 95% on R/A; nb2 Pain 0/10; 16:49 Weight 99.67 kg; js13 16:51 BP 152 / 93 (auto/); js13 16:51 Pulse 84 MON; Resp 18; Pulse Ox 97% on R/A; js13 21:39 BP 151 / 96 (auto/); mv5 21:41 Pulse 76 MON; Pulse Ox 95% ; mv5 21:45 BP 158 / 85 (auto/); mv5 21:46 Pulse 77 MON; Pulse Ox 92% ; mv5 22:00 BP 155 / 85 (auto/); mv5 22:00 Pulse 78 MON; Pulse Ox 93% ; mv5 22:15 BP 151 / 74 (auto/); mv5 22:16 Pulse 80 MON; Pulse Ox 93% ; mv5 22:30 BP 162 / 82 (auto/); mv5 22:31 Pulse 79 MON; Pulse Ox 92% ; mv5 22:45 BP 151 / 73 (auto/); mv5 22:46 Pulse 81 MON; Pulse Ox 92% ; mv5 23:00 BP 156 / 89 (auto/); mv5 23:00 Pulse 79 MON; Pulse Ox 92% ; mv5 23:15 BP 155 / 84 (auto/); mv5 23:16 Pulse 84 MON; Pulse Ox 91% ; mv5 23:30 BP 159 / 77 (auto/); mv5 23:32 BP 157 / 77; Pulse 86 MON; Resp 16; Temp 100.4(TE); Pulse Ox 93% on R/A; mv5 23:48 BP 157 / 77; Pulse 86; Resp 16; Temp 100.4(TE); Pulse Ox 93% on R/A; mv5 Vitals: 16:27 Log In Time N/A - ambulance arrival. nb2 ED Course: 16:14 Patient visited by Noreen Ross PCA. ar3 16:14 Ama Stewart,RN is Primary Nurse. ar3 16:14 Patient moved to Waiting ar3 16:14 Patient moved to 1 ar3 16:15 [facility]. le 16:15 Luis Hays MD is Private Physician. ar3 16:22 Triage Initiated ld5 16:27 Patient has correct armband on for positive identification. Placed in gown. Bed in low nb2 position. Call light in reach. Side rails up X2. monitoring tech on. Pulse ox on. NIBP on. 16:28 Patient visited by Nancy Huber. nb2 16:28 Patient visited by Kelly Wilkerson,ANGELITO. ld5 16:34 CBC with Diff Sent. js13 16:34 Cardiac Injury Profile Sent. js13 16:34 Liver Profile Sent. js13 16:34 MED Profile Sent. js13 16:34 Thyroid Stimulating Hormone Sent. js13 16:34 Troponin Sent. js13 16:46 Patient visited by Pari Ramsey FNP. le 16:46 Patient visited by Pari Ramsey FNP. le 16:48 Dilantin Level Sent. js13 16:51 The patient / caregiver is instructed regarding the plan of care and ED course. Seizure js13 precautions initiated. 17:05 Urine Myoglobin Screen Sent. js13 17:05 Drug Eval Toxicology ED Only Sent. js13 17:05 Urinalysis Sent. js13 17:06 Inserted saline lock: 18 gauge in right antecubital area and blood collected. The js13 patient tolerated the procedure well. No procedures done that require assistance. Labs drawn. (by ED staff). Sent per order to lab. Labs/Blood culture drawn Urine collected. Specimen obtained from Faulkner. Urine specimen sent to lab. Faulkner cath inserted 18 Fr. Balloon inflated. To gravity drainage. Urine specimen collected. returned heri urine. Patient tolerated well. 17:12 Patient visited by Morgan Paez PCA. [facility] 17:12 EKG done. (by ED staff). Reviewed by Pari GUERIN. jmv 17:40 Patient visited by Ama Stewart,ANGELITO. js13 18:16 -Arterial Blood Gas Sent. kjn 18:23 Lizet Guerrero is Hospitalizing Provider. le 18:36 Patient visited by Ama Stewart RN. js13 19:12 Primary Nurse role handed off by Ama Stewart,RN mv5 19:12 Ewelina Mix,RN is Primary Nurse. mv5 19:45 Davina Gutierrez, ANGELITO is Primary Nurse. kmg1 20:06 Patient moved to MRI ml3 20:36 CT Hip Without Contrast Returned. EDMS 23:48 Patient visited by Fariha Grossman PCA. italia 23:50 -MRI-Brain without Returned. EDMS 23:50 -MRA-Brain without contrast Returned. EDMS 02 10:31 T-Sheet-- Draft Copy was scanned into [employer] and attached to record. gb Administered Medications: 08/26 17:06 Drug: NS 0.9% 1000 ml [sodium chloride 0.9 % intravenous solution] Route: IV; Rate: js13 bolus; Site: right antecubital; 18:15 Drug: Phenytoin 500 mg [phenytoin sodium 50 mg/mL intravenous solution] Route: IVPB; js13 Infused Over: 30 mins; Site: right antecubital; 19:03 Follow up: IV Status: Completed infusion; IV Intake: 50ml js13 Intake: 19:03 IV: 50.00ml; Total: 50.00ml. js13 08/27 00:11 IV: 1000.00ml (NS); Total: 1050.00ml. mv5 Output: 00:11 Urine: 750.00ml (Faulkner); Total: 750.00ml. mv5 RT: 08/26 18:16 ABG's drawn from right radial artery unsuccesfully attempted, provider notified. kjn 18:16 ABG's drawn from right brachial artery pressure held for 5 minutes no bleeding noted kjn pressure bandage applied specimen sent pt. tolerated well. Order Results: Lab Order: CBC with Diff; SPEC'M 08/26/16 16:31 Test: WHITE BLOOD COUNT; Value: 19.1; Range: 4.0-10.0; Abnormal: Above high normal; Units: K/mm3; Status: F Test: RED BLOOD COUNT; Value: 4.98; Range: 4.30-6.10; Units: M/mm3; Status: F Test: HEMOGLOBIN; Value: 16.6; Range: 14.0-18.0; Units: g/dl; Status: F Test: HEMATOCRIT; Value: 47.4; Range: 42.0-52.0; Units: %; Status: F Test: MEAN CORPUSCULAR VOLUME; Value: 95.2; Range: 80.0-96.0; Units: fl; Status: F Test: MEAN CORPUSCULAR HEMOGLOBIN; Value: 33.5; Range: 27.0-33.0; Abnormal: Above high normal; Units: pg; Status: F Test: MEAN CORPUSCULAR HGB CONC; Value: 35.2; Range: 32.0-36.5; Units: g/dl; Status: F Test: RED CELL DISTRIBUTION WIDTH; Value: 12.8; Range: 11.5-14.5; Units: %; Status: F Test: PLATELET COUNT, AUTOMATED; Value: 275; Range: 150-450; Units: k/mm3; Status: F Test: NEUTROPHILS %; Value: 90.7; Range: 36.0-66.0; Abnormal: Above high normal; Units: %; Status: F Test: LYMPH %; Value: 4.2; Range: 24.0-44.0; Abnormal: Below low normal; Units: %; Status: F Test: MONO %; Value: 4.5; Range: 0.0-5.0; Units: %; Status: F Test: EOS %; Value: 0.0; Range: 0.0-3.0; Units: %; Status: F Test: BASO %; Value: 0.0; Range: 0.0-1.0; Units: %; Status: F Test: LARGE UNSTAINED CELL %; Value: 0.4; Range: 0.0-4.0; Units: %; Status: F Test: NEUTROPHILS #; Value: 17.3; Range: 1.8-7.7; Abnormal: Above high normal; Units: K/mm3; Status: F Test: LYMPH #; Value: 0.8; Range: 1.5-4.5; Abnormal: Below low normal; Units: K/mm3; Status: F Test: MONO #; Value: 0.9; Range: 0.0-0.8; Abnormal: Above high normal; Units: K/mm3; Status: F Test: EOS #; Value: 0.0; Range: 0.0-0.50; Units: K/mm3; Status: F Test: BASO #; Value: 0.0; Range: 0.0-0.2; Units: K/mm3; Status: F Test: LARGE UNSTAINED CELL #; Value: 0.1; Range: 0.0-0.4; Units: K/mm3; Status: F Lab Order: Cardiac Injury Profile; SPEC'M 08/26/16 16:31 Test: CPK CREATINE PHOSPHOKINASE; Value: 86160; Range: 39-308; Abnormal: Above high normal; Units: U/L; Status: F Test: CK-MB VALUE MASS; Value: 171.9; Range: 0.0-3.6; Abnormal: Above high normal; Units: NG/ML; Status: F Test: MB/CK RELATIVE INDEX; Value: 1.28; Range: < OR =4; Status: F Test Note: ; DIAGNOSIS CRITERIA MMB ng/ml Relative Index (RI) NON-AMI < or = 5 N/A LIZARRAGA ZONE > 5 < or = 4 AMI > 5 > 4 Lab Order: Drug Eval Toxicology ED Only; SPEC'M 08/26/16 17:05 Test: AMPHETAMINES LEVEL URINE; Value: NEGATIVE; Range: NEGATIVE; Status: F Test: BARBITURATES URINE; Value: NEGATIVE; Range: NEGATIVE; Status: F Test: BENZODIAZEPINES URINE; Value: NEGATIVE; Range: NEGATIVE; Status: F Test: CANNABINOIDS URINE; Value: NEGATIVE; Range: NEGATIVE; Status: F Test: COCAINE METABOLITE URINE; Value: NEGATIVE; Range: NEGATIVE; Status: F Test: METHADONE URINE; Value: NEGATIVE; Range: NEGATIVE; Status: F Test: OPIATES URINE; Value: NEGATIVE; Range: NEGATIVE; Status: F Test: TRICYCLIC ANTIDEPRESS URINE; Value: NEGATIVE; Range: NEGATIVE; Status: F Test Note: ; ALL PRESUMPTIVE POSITIVE FINDINGS ARE UNCONFIRMED NORMAL VALUES THRESHOLD IN NG/ML AMPHETAMINES 1000 METHAMPHETAMINES 1000 BARBITURATES 300 BENZODIAZEPINES 300 CANNABINOIDS (THC) 50 COCAINE METABOLITE 300 METHADONE 300 OPIATES 300 PHENCYCLIDINE 25 TRICYCLIC ANTIDEPRESSANTS 1000 RESULTS ARE FOR MEDICAL PURPOSES ONLY. ALL URINE SPECIMENS WILL BE SAVED FOR 3 DAYS. IF CONFIRMATION OF A PRESUMPTIVE POSTIVE SCREEN RESULT IS DESIRED, CALL CHEMISTRY ([phone]) AND REQUEST URINE TO BE SENT TO REFERENCE LAB. FOR A LIST OF CLOSELY RELATED COMPOUNDS PLEASE CALL THE LAB. Lab Order: Liver Profile; SPEC'M 08/26/16 16:31 Test: AST/SGOT; Value: 300; Range: 15-37; Abnormal: Above high normal; Units: U/L; Status: F Test: ALT/SGPT; Value: 105; Range: 12-78; Abnormal: Above high normal; Units: U/L; Status: F Test: ALKALINE PHOSPHATASE; Value: 77; Range: 45-117; Units: U/L; Status: F Test: BILIRUBIN,TOTAL; Value: 0.8; Range: 0.2-1.0; Units: MG/DL; Status: F Test: BILIRUBIN,DIRECT; Value: 0.3; Range: 0.0-0.2; Abnormal: Above high normal; Units: MG/DL; Status: F Test: TOTAL PROTEIN; Value: 7.6; Range: 6.4-8.2; Units: GM/DL; Status: F Test: ALBUMIN; Value: 4.2; Range: 3.2-5.2; Units: GM/DL; Status: F Test: ALBUMIN/GLOBULIN RATIO; Value: 1.23; Range: 1.00-1.93; Status: F Lab Order: MED Profile; SPEC'M 08/26/16 16:31 Test: GLUCOSE, FASTING; Value: 118; Range: 80-110; Abnormal: Above high normal; Units: MG/DL; Status: F Test: BLOOD UREA NITROGEN; Value: 43; Range: 7-18; Abnormal: Above high normal; Units: MG/DL; Status: F Test: CREATININE FOR GFR; Value: 2.07; Range: 0.70-1.30; Abnormal: Above high normal; Units: MG/DL; Status: F Test: SODIUM LEVEL; Value: 142; Range: 136-145; Units: MEQ/L; Status: F Test: POTASSIUM SERUM; Value: 3.5; Range: 3.5-5.1; Units: MEQ/L; Status: F Test: CHLORIDE LEVEL; Value: 98; Range: 98-107; Units: MEQ/L; Status: F Test: CARBON DIOXIDE LEVEL; Value: 28; Range: 21-32; Units: MEQ/L; Status: F Test: ANION GAP; Value: 16; Range: 8-16; Units: MEQ/L; Status: F Test: CALCIUM LEVEL; Value: 9.0; Range: 8.8-10.2; Units: MG/DL; Status: F Lab Order: Thyroid Stimulating Hormone; SPEC' 08/26/16 16:31 Test: THYROID STIMULATING HORMONE; Value: 0.541; Range: 0.358-3.740; Units: uIU/ML; Status: F Lab Order: Troponin; SPEC' 08/26/16 16:31 Test: TROPONIN I; Value: 0.02; Range: < 0.10; Units: NG/ML; Status: F Test Note: ; Troponin I Reference Interval for [employer] LOCI: 99th Percentile= 0.00-0.045 ng/ml Risk Stratification: <= 0.10 ng/ml Decreased Risk for Adverse Clinical Events. 0.10-1.50 ng/ml Increased Risk for Adverse Clinical Events. Evaluation of additional criterion and/or repeat testing in 2-6 hours is suggested to rule out myocardial damage. >= 1.50 ng/ml Indicative of Myocardial Injury. Lab Order: Urinalysis; SPEC'M 08/26/16 17:05 Test: APPEARANCE, URINE; Value: CLOUDY; Range: CLEAR; Abnormal: Above high normal; Status: F Test: COLOR, URINE; Value: HERI; Range: YELLOW; Status: F Test: PH,URINE; Value: 5.0; Range: 5.0-9.0; Units: UNITS; Status: F Test: SPECIFIC GRAVITY URINE AUTO; Value: 1.024; Range: 1.002-1.035; Status: F Test: PROTEIN, URINE AUTO; Value: 2+; Range: NEGATIVE; Abnormal: Above high normal; Units: mg/dL; Status: F Test: GLUCOSE, URINE (UA) AUTO; Value: 1+; Range: NEGATIVE; Abnormal: Above high normal; Units: mg/dL; Status: F Test: KETONE, URINE AUTO; Value: TRACE; Range: NEGATIVE; Abnormal: Above high normal; Units: mg/dL; Status: F Test: UROBILINOGEN, URINE AUTO; Value: 0.2; Range: 0.0-2.0; Units: mg/dL; Status: F Test: BILIRUBIN, URINE AUTO; Value: NEGATIVE; Range: NEGATIVE; Status: F Test: NITRITE, URINE AUTO; Value: NEGATIVE; Range: NEGATIVE; Status: F Test: LEUKOCYTE ESTERASE, URINE AUTO; Value: NEGATIVE; Range: NEGATIVE; Status: F Test: BLOOD, URINE BLOOD; Value: 3+; Range: NEGATIVE; Abnormal: Above high normal; Status: F Test: SPERM, URINE AUTO; Range: NONE; Status: I Test: WBC, URINE AUTO; Value: 7; Range: 0-3; Abnormal: Above high normal; Units: /HPF; Status: F Test: RBC, URINE AUTO; Value: 3; Range: 0-3; Units: /HPF; Status: F Test: BACTERIA, URINE AUTO; Value: 1+; Range: NEGATIVE; Abnormal: Above high normal; Status: F Test: SQUAMOUS EPITHELIAL CELL UR AU; Value: 1; Range: 0-6; Units: /HPF; Status: F Test: MUCUS, URINE; Value: SMALL; Range: NEGATIVE; Status: F Test: HYALINE CAST, URINE AUTO; Value: 3; Range: 0-1; Units: /LPF; Status: F Test: AMORPHOUS SEDIMENT; Value: SMALL; Range: NEGATIVE; Abnormal: Above high normal; Status: F Lab Order: Urine Myoglobin Screen; SPEC'M 08/26/16 17:05 Test: MYOGLOBIN SCREEN, URINE; Value: POSITIVE; Range: NEGATIVE; Status: F Test Note: ; SUGGEST QUANTITATIVE TEST BE ORDERED FOR CONFIRMATION. Lab Order: Dilantin Level; SPEC'M 08/26/16 16:31 Test: PHENYTOIN (DILANTIN); Value: 4.7; Range: 10.0-20.0; Abnormal: Below low normal; Units: UG/ML; Status: F Lab Order: -Arterial Blood Gas; SPEC'M 08/26/16 18:06 Test: ABG pH (ARTERIAL); Value: 7.439; Range: 7.350-7.450; Units: UNITS; Status: F Test: ABG PARTIAL PRESSURE CO2; Value: 27.4; Range: 35.0-45.0; Abnormal: Below low normal; Units: mmHg; Status: F Test: ABG PARTIAL PRESSURE O2; Value: 82.7; Range: 75.0-100.0; Units: mmHg; Status: F Test: ABG TOTAL CO2; Value: 19.0; Range: 23.0-31.0; Abnormal: Below low normal; Units: MEQ/L; Status: F Test: ABG HCO3; Value: 18.2; Range: 22.0-26.0; Abnormal: Below low normal; Units: MEQ/L; Status: F Test: ABG BASE EXCESS; Value: -4.3; Range: -2.0-2.0; Abnormal: Below low normal; Status: F Test: ABG STANDARD HCO3; Value: 20.9; Range: 22.0-26.0; Abnormal: Below low normal; Units: MEQ/L; Status: F Test: ABG O2 SATURATION; Value: 95.8; Range: 95.0-99.0; Units: %; Status: F Test: ABG DEVICE; Value: NASAL FABRIZIO; Status: F Lab Order: CARDIAC INJURY PROFILE; [facility] 08/26/16 21:04 Test: CPK CREATINE PHOSPHOKINASE; Value: 39429; Range: 39-308; Abnormal: Above high normal; Units: U/L; Status: F Test: CK-MB VALUE MASS; Value: 232.7; Range: 0.0-3.6; Abnormal: Above high normal; Units: NG/ML; Status: F Test: MB/CK RELATIVE INDEX; Value: 1.08; Range: < OR =4; Status: F Test Note: ; DIAGNOSIS CRITERIA MMB ng/ml Relative Index (RI) NON-AMI < or = 5 N/A LIZARRAGA ZONE > 5 < or = 4 AMI > 5 > 4 Lab Order: TROPONIN; [facility] 08/26/16 21:04 Test: TROPONIN I; Value: 0.05; Range: < 0.10; Abnormal: Delta; Units: NG/ML; Status: F Test Note: ; Troponin I Reference Interval for [employer] [place] LOCI: 99th Percentile= 0.00-0.045 ng/ml Risk Stratification: <= 0.10 ng/ml Decreased Risk for Adverse Clinical Events. 0.10-1.50 ng/ml Increased Risk for Adverse Clinical Events. Evaluation of additional criterion and/or repeat testing in 2-6 hours is suggested to rule out myocardial damage. >= 1.50 ng/ml Indicative of Myocardial Injury. Lab Order: LACTIC ACID LEVEL, LACTATE; SPEC'M 08/26/16 21:04 Test: LACTIC ACID SEPSIS PROTOCOL; Value: 2.0; Range: 0.4-2.0; Units: MMOL/L; Status: F Radiology Order: CT Hip Without Contrast Test: CT Hip Without Contrast REASON FOR EXAMINATION: Trauma; ; CLINICAL HISTORY: Trauma; TECHNIQUE: Multiple axial CT images were obtained of the left hip without IV contrast material. MPR c; oronal and sagittal sequences are obtained.; COMMENTS:; There is no evidence of fracture or dislocation. There are no lytic or blastic lesions. No soft tissu; e masses or fluid collections are present.; There is no evidence of arthritis. Joint spaces are preserved.; IMPRESSION:; No acute fracture.; Thank you for your kind referral of this patient.; ; Radiology Order: -MRA-Brain without contrast Test: -MRA-Brain without contrast REASON FOR EXAMINATION: trauma, ? infarct/bleed; ; CLINICAL HISTORY: Stroke. Hemorrhage versus ischemia.; TECHNIQUE: Head MRA with 3D TOF; COMPARISON: Same-day head CT and brain MRI.; ; ; Right anterior circulation: Right carotid siphon is patent. There is complete or near complete occlus; ion of the right anterior cerebral artery. Right middle cerebral artery is patent. No aneurysms are s; een.; ; Left anterior circulation: Left carotid siphon is patent. There is complete or near complete occlusio; n of the left anterior cerebral artery. Left middle cerebral artery is patent. No aneurysms are seen.; ; ; Right posterior circulation: Right brainstem arteries are patent. Right posterior cerebral artery is; patent. The right posterior communicating artery is patent, which is a normal variant.; Left posterior circulation: Left brainstem arteries are patent. 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 Yao by phone.; ; Radiology Order: -MRI-Brain without Test: -MRI-Brain without REASON FOR EXAMINATION: ? infarct/bleed;Trauma; ; CLINICAL HISTORY: Infarct versus hemorrhage.; TECHNIQUE: MRI of the Brain without gadolinium. Multiplanar T1 and T2 weighted images of the brain we; re obtained.; ; COMPARISON: Same-day head CT.; ; T1 and T2: The right basal ganglia infarction produces mild edema that impresses on the right frontal; horn but does not produce hydrocephalus.; FLAIR: Hyperintensity in the right basal ganglia, high right frontal motor cortex and smaller foci wi; th a bilateral periventricular distribution which correspond to the regions of acute ischemia seen on; diffusion imaging.; Vascular flow voids: Susceptibility artifact within the A1 segment of the STACY suggests acute thrombos; is.; Midline: Pituitary normal size. Brain stem and corpus callosum appear normal.; Sinuses: Mild bilateral maxillary sinusitis.; Diffusion Imaging: There are multiple regions of acute infarction; right basal ganglia 2.5 x 2.4 cm,; high right parietal lobe 1.9 x 1.8 cm, and several smaller infarctions involving the bilateral perive; ntricular tissues superior to the lateral ventricles..; ; ; IMPRESSION:; 1. Multiple acute infarctions involving the right basal ganglia, high right frontal lobe, and smaller; foci along the bilateral medial frontal lobes. This is compatible with acute infarction affecting th; e anterior cerebral arteries. The accompanying MRA demonstrates near complete occlusion of blood flow; within the bilateral anterior cerebral arteries.; 2. Comparison to the same day CT reveals no evidence of hemorrhage into the regions of infarction.; Findings were discussed with Dr. Yao by phone.; ; Outcome: 18:23 Decision to Hospitalize by Provider. clayton 08/27 00:11 Discharge Assessment: Patient drowsy. patient administered narcotics - no. Admitted to mv5 ICU accompanied by nurse, accompanied by tech, via stretcher. The following High Risk Discharge criteria are identified: None. Condition: stable Condition: unchanged. MRI Study completed. Property :Personal belongings accompany Pt. 00:22 Patient left the ED. curtis Signatures: Dispatcher [employer] EDMS Davina Gutierrez, RN RN kmg1 Nathaniel, Sangeeta Pelayo, RN RN curtis Almanzar, Kely, Reg Reg gb Adelfo, Luís, Chemical Analyst Unit ml3 Pari Ramsey, MULTIMEDIA AUTHORING SPECIALIST M[employer] AUTHORING SPECIALIST Noreen Maria, OUTSIDE REPAIRER SPECIAL OUTSIDE REPAIRER SPECIAL ar3 Kelly Wilkerson,RN RN ld5 Fariha Grossman, OUTSIDE REPAIRER SPECIAL OUTSIDE REPAIRER SPECIAL [place] Ama Stewart,RN RN js13 Elena Tellez Nicole nb2 Morgan Paez, OUTSIDE REPAIRER SPECIAL OUTSIDE REPAIRER SPECIAL marinov Ewelina Mix,RN RN mv5 Corrections: (The following items were deleted from the chart) 08/26 23:57 23:32 Pulse 86bpm; Monitor; Pulse Ox 93%; mv5 mv5 23:57 23:48 Temp 100.4F Temporal; italia mv5 Chart Complete MTDD
[2016-08-29] MEDS: SLF 3 ML SYR IV SCH ×3 (05:28→21:46)
[2016-08-29] MEDS: KCL 20MEQ in NS 1000ML 1,000 ML IV SCH ×2 (05:28→10:05)
[2016-08-29] MEDS: METOPROLOL TART 25 MG TABLET PO SCH ×3 (05:28→21:45)
[2016-08-29 06:01] LABS: BASO % 0.2 % (0.0-1.0); EOS # 0.3 K/mm3 (0.0-0.50); EOS % 2.3 % (0.0-3.0); LARGE UNSTAINED CELL # 0.1 K/mm3 (0.0-0.4); LARGE UNSTAINED CELL % 1.1 % (0.0-4.0); LYMPH # 1.8 K/mm3 (1.5-4.5); LYMPH % 15.7 % (24.0-44.0); MEAN CORPUSCULAR HEMOGLOBIN 32.9 pg (27.0-33.0); MEAN CORPUSCULAR HGB CONC 34.6 g/dl (32.0-36.5); MEAN CORPUSCULAR VOLUME 95.2 fl (80.0-96.0); MONO # 0.7 K/mm3 (0.0-0.8); MONO % 5.8 % (0.0-5.0); NEUTROPHILS # 8.4 K/mm3 (1.8-7.7); NEUTROPHILS % 74.9 % (36.0-66.0); PLATELET COUNT, AUTOMATED 155 k/mm3 (150-450); RED CELL DISTRIBUTION WIDTH 12.7 % (11.5-14.5); WHITE BLOOD COUNT 11.2 K/mm3 (4.0-10.0)
[2016-08-29 06:32] LABS: ALBUMIN 2.6 GM/DL (3.2-5.2); ALBUMIN/GLOBULIN RATIO 0.93 (1.00-1.93); ALKALINE PHOSPHATASE 46 U/L (45-117); ALT/SGPT 137 U/L (12-78); ANION GAP 8 MEQ/L (8-16); AST/SGOT 297 U/L (15-37); BILIRUBIN,TOTAL 0.5 MG/DL (0.2-1.0); BLOOD UREA NITROGEN 19 MG/DL (7-18); CALCIUM LEVEL 7.7 MG/DL (8.8-10.2); CARBON DIOXIDE LEVEL 29 MEQ/L (21-32); CHLORIDE LEVEL 108 MEQ/L (98-107); GLOMERULAR FILTRATION RATE > 60.0 (>49); GLUCOSE, FASTING 101 MG/DL (80-110); POTASSIUM SERUM 3.5 MEQ/L (3.5-5.1); SODIUM LEVEL 145 MEQ/L (136-145); TOTAL PROTEIN 5.4 GM/DL (6.4-8.2)
[2016-08-29 08:00] VITALS: BP 160/83
[2016-08-29] MEDS: PHENYTOIN ER 100 MG CAP PO SCH ×3 (08:29→21:43)
[2016-08-29] MEDS: ASPIRIN 325 MG TAB PO SCH (08:29)
[2016-08-29] MEDS: LOSARTAN 50 MG TAB PO SCH (08:30)
[2016-08-29] MEDS ORDERED: D5W 1,000 ML IV SCH (11:30)
[2016-08-29 12:00] VITALS: BP 168/92
[2016-08-29] MEDS ORDERED: MIDAZOLAM INJ 2 MG/2 ML VIAL (J2250) As Ordered ONE ×2 (13:01→13:02)
--- NOTE | 2016-08-29 13:32 | IPNPDOC ---
Date Seen The patient was seen on 08/29/16. Subjective CC/HPI The patient is a 66-year-old male admitted with a reason for visit of Acute Metabolic Encephalopathy. Events since last encounter no new complaints, left arm and leg weaker than the right , denies any SOB though there is some over all puffiness. General: Reports: ROS Unobtainable Objective General Exam: Positive: No Acute Distress, Other (open his eyes and can follow some commands but doesn't answer questions) Eye Exam: Positive: Conjunctiva & lids normal ENT Exam: Positive: Mucous membr. moist/pink Neck Exam: Positive: Supple Heart Exam: Positive: Other (occasional extra beat), Rate Normal, Regular Rhythm Abdomen Exam: Positive: Normal bowel sounds, Soft Extremity Exam: Positive: Normal pulses, Negative: Clubbing, Cyanosis, Edema Neuro Exam: Positive: Other (left grib weaker than right, moves right foot but not left sided lower extremity, no facial droop) Problems (1) Acute ischemic stroke Status: Acute Problem Text: in the region of bilateral Anterior cerebral arteries which do show complete blockage in MRA also in the right MCA artery distribution . because of thia showeres of infarction embolic event is suspected patient due for EDGAR today. will continue with ASA. is source of embolus is delineated will need coumadin without lovenox bridging due to the high risk of hemorrhagic conversion. (2) Acute metabolic encephalopathy Status: Acute Response to Treatment: Improving Problem Text: * infracts identified on MRI, acute infarctions involving the right basal ganglia, high right frontal lobe, and smaller foci along the bilateral medial frontal lobes * unknown etiology, will order EDGAR for am to rule out Cardioembolic event * Dr Ken is consulted * continue asa (3) HTN (hypertension) Status: Chronic Response to Treatment: Stable (4) Seizure disorder Status: Chronic Problem Text: * pt is normally on phenytoin but level was subtherapeutic at 4.7 * received a bolus 2/4 * now on 100 TID (5) Hypokalemia Status: Acute Problem Text: * will order K run 20meq (6) Leukocytosis Status: Acute Response to Treatment: Improving Problem Text: * likely reactive * blood cx, urine cx, and mrsa screen pending (7) ROCAEL (acute kidney injury) Status: Resolved Problem Text: was likely due to rhabdo, pt was on the floor for an unknown period of time continue IV fluids (8) Rhabdomyolysis Status: Acute Response to Treatment: Improving Problem Text: * continue IV hydration * NS 150 cc/hr Plan/VTE VTE Prophylaxis Ordered?: Yes Plan/Urinary Catheter Reason for insertion/continuin: Critical Pt monitoring VS, I&O, 24H, Fishbone Vital Signs Date Time Temp Pulse Resp B/P Pulse Ox O2 Delivery O2 Flow Rate FiO2 08/29/16 13:00 63 18 180/110 95 Room Air 08/29/16 12:00 99.5 I&O- Last 24 Hours up to 6 AM 08/29/16 06:00 Intake Total 4140 ml Balance 4140 ml Laboratory Tests 2 08/29/16 05:35: Blood Urea Nitrogen 19H, Creatinine 0.90, Sodium Level 145, Potassium Level 3.5 , Chloride Level 108H, Carbon Dioxide Level 29, Calcium Level 7.7L, Aspartate Amino Transf (AST/SGOT) 297H, Alanine Aminotransferase (ALT/SGPT) 137H, Total Creatine Kinase 7493H, Alkaline Phosphatase 46, Total Bilirubin 0.5, Total Protein 5.4L, Albumin 2.6L, Albumin/Globulin Ratio 0.93L, Anion Gap 8, White Blood Count 11.2H, Red Blood Count 4.02L, Hemoglobin 13.2L, Hematocrit 38.3L, Mean Corpuscular Volume 95.2, Mean Corpuscular Hemoglobin 32.9, Mean Corpuscular Hemoglobin Concent 34.6, Red Cell Distribution Width 12.7, Platelet Count 155, Neutrophils (%) (Auto) 74.9H, Lymphocytes (%) (Auto) 15.7L, Monocytes (%) (Auto) 5.8H, Eosinophils (%) (Auto) 2.3, Basophils (%) (Auto) 0.2 , Neutrophils # (Auto) 8.4H, Lymphocytes # (Auto) 1.8, Monocytes # (Auto) 0.7, Eosinophils # (Auto) 0.3, Basophils # (Auto) 0.0, Glomerular Filtration Rate > 60.0, Large Unclassified Cells # 0.1, Large Unclassified Cells % 1.1, Magnesium Level 2.0 Laboratory Tests 08/29/16 05:35 Calcium Level 7.7 L, Aspartate Amino Transf (AST/SGOT) 297 H, Alanine Aminotransferase (ALT/SGPT) 137 H, Total Creatine Kinase 7493 H, Alkaline Phosphatase 46, Total Bilirubin 0.5, Total Protein 5.4 L, Albumin 2.6 L, Red Blood Count 4.02 L, Mean Corpuscular Volume 95.2, Mean Corpuscular Hemoglobin 32.9, Mean Corpuscular Hemoglobin Concent 34.6, Red Cell Distribution Width 12.7 , Neutrophils (%) (Auto) 74.9 H, Lymphocytes (%) (Auto) 15.7 L, Monocytes (%) ( Auto) 5.8 H, Eosinophils (%) (Auto) 2.3, Basophils (%) (Auto) 0.2, Neutrophils # (Auto) 8.4 H, Lymphocytes # (Auto) 1.8, Monocytes # (Auto) 0.7, Eosinophils # (Auto) 0.3, Basophils # (Auto) 0.0 Microbiology 08/26/16 Blood Culture - Preliminary, Resulted No Growth after 48 hours. All Specime... 08/27/16 MRSA Screen - Final, Complete 08/27/16 Urine Culture - Final, Complete CARLOS JOHNSON MD Aug 29, 2016 13:32
[2016-08-29 14:10] VITALS: BP 165/85
--- NOTE | 2016-08-29 14:12 | T-ECHO ---
DATE OF PROCEDURE: 08/29/2016 PREPROCEDURE DIAGNOSIS: Acute stroke. POSTPROCEDURE DIAGNOSIS: Acute stroke. FINDINGS: Mild aortic valve sclerosis of a 3-cuspid aortic valve. Mild aortic valve sclerosis. No patent foramen ovale. No intracardiac masses or thrombi. Very mild atherosclerosis involving the distal aortic arch and descending thoracic aorta. PROCEDURE PERFORMED: Transesophageal echocardiogram with saline contrast IV times two. PROCEDURE PERFORMED BY: Asif Martines MD SAP TECHNICAL ARCHITECT: None. LIGHT CONSCIOUS SEDATION: Midazolam 4 mg IV. COMPLICATIONS: None. PROCEDURE DESCRIPTION: The patient received topical Cetacaine [place] to the back of the pharynx. He received a total of 4 mg of midazolam IV for light conscious sedation. Esophageal intubation was accomplished without difficulty using a Tere multiplane 2-dimensional transesophageal echocardiogram probe. Rhythm was sinus with occasional PVCs. The left ventricle appeared normal in size and systolic function. The right ventricle appeared normal in size and systolic function. The atrial septum was intact anatomically and by color flow Doppler. No atrioseptal defects. Patent foramen ovale could not be demonstrated with filling contrast IV times two with Valsalva maneuver release. However, the ability of the patient to do an adequate Valsalva maneuver release appeared limited because of the patient's stroke and also because of sedation. Left atrial appendage was normal and without thrombi or spontaneous echo contrast. The aortic valve was 3-cuspid and displayed mild focal thickening and focal calcific deposits. Mild central aortic regurgitation was present. Mitral leaflets were structurally and functionally normal. Mild mitral regurgitation was present and within physiologic limits. Tricuspid and pulmonic valves were only moderately visualized. No apparent mitral regurgitation, but technically difficult. Trace pulmonic regurgitation was present. No pericardial effusion. Descending thoracic aorta and distal aortic arch showed very mild atherosclerosis. No mobile components CONCLUSIONS: 1. Mild aortic valve sclerosis and mild aortic regurgitation. 2. No atrioseptal defect or patent foramen ovale. 3. Normal left ventricle size and systolic function. 4. Very mild atherosclerosis in the distal aortic arch and descending thoracic aorta.
[2016-08-29] MEDS ORDERED: MIDAZOLAM INJ 2 MG/2 ML VIAL (J2250) IV ONE (15:30)
[2016-08-29 16:00] VITALS: BP 166/94
[2016-08-29 20:00] VITALS: BP 167/103
[2016-08-29] MEDS: ATORVASTATIN 20 MG TAB PO SCH (21:42)
[2016-08-29] MEDS: PANTOPRAZOLE 40MG INJ (PROTONIX) (C9113) IV SCH (21:42)
[2016-08-30] VITALS: BP 162/96
[2016-08-30 04:00] VITALS: BP 160/90
[2016-08-30 05:54] LABS: BASO % 0.4 % (0.0-1.0); EOS # 0.5 K/mm3 (0.0-0.50); EOS % 3.9 % (0.0-3.0); LARGE UNSTAINED CELL # 0.2 K/mm3 (0.0-0.4); LARGE UNSTAINED CELL % 1.2 % (0.0-4.0); LYMPH # 1.8 K/mm3 (1.5-4.5); LYMPH % 13.9 % (24.0-44.0); MEAN CORPUSCULAR HEMOGLOBIN 32.9 pg (27.0-33.0); MEAN CORPUSCULAR HGB CONC 35.1 g/dl (32.0-36.5); MEAN CORPUSCULAR VOLUME 93.6 fl (80.0-96.0); MONO # 0.6 K/mm3 (0.0-0.8); MONO % 5.1 % (0.0-5.0); NEUTROPHILS # 9.5 K/mm3 (1.8-7.7); NEUTROPHILS % 75.6 % (36.0-66.0); PLATELET COUNT, AUTOMATED 153 k/mm3 (150-450); RED CELL DISTRIBUTION WIDTH 12.6 % (11.5-14.5); WHITE BLOOD COUNT 12.6 K/mm3 (4.0-10.0)
[2016-08-30] MEDS: SLF 3 ML SYR IV SCH ×3 (06:02→22:04)
[2016-08-30] MEDS: METOPROLOL TART 25 MG TABLET PO SCH ×3 (06:02→22:05)
[2016-08-30 06:10] LABS: ALBUMIN 2.6 GM/DL (3.2-5.2); ALKALINE PHOSPHATASE 50 U/L (45-117); ALT/SGPT 127 U/L (12-78); ANION GAP 9 MEQ/L (8-16); AST/SGOT 198 U/L (15-37); BILIRUBIN,TOTAL 0.6 MG/DL (0.2-1.0); BLOOD UREA NITROGEN 20 MG/DL (7-18); CARBON DIOXIDE LEVEL 29 MEQ/L (21-32); CHLORIDE LEVEL 105 MEQ/L (98-107); CREATININE FOR GFR 0.92 MG/DL (0.70-1.30); GLOMERULAR FILTRATION RATE > 60.0 (>49); GLUCOSE, FASTING 106 MG/DL (80-110); MAGNESIUM LEVEL 1.9 MG/DL (1.8-2.4); POTASSIUM SERUM 3.5 MEQ/L (3.5-5.1); SODIUM LEVEL 143 MEQ/L (136-145); TOTAL PROTEIN 5.5 GM/DL (6.4-8.2)
[2016-08-30 08:00] VITALS: BP 162/98
[2016-08-30] MEDS: PHENYTOIN ER 100 MG CAP PO SCH ×3 (09:30→22:04)
[2016-08-30] MEDS: ASPIRIN 325 MG TAB PO SCH (09:30)
[2016-08-30] MEDS: LOSARTAN 50 MG TAB PO SCH (09:30)
--- NOTE | 2016-08-30 13:28 | IPNPDOC ---
Subjective General Date Seen The patient was seen on 08/30/16. Chief Complaint/HPI The patient is a 66-year-old male admitted with a reason for visit of Acute Metabolic Encephalopathy. Subjective Events since last encounter no complaints. Objective Physical Examination General Exam: Positive: No Acute Distress, Other (open his eyes and can follow some commands but doesn't answer questions) Eye Exam: Positive: Conjunctiva & lids normal ENT Exam: Positive: Mucous membr. moist/pink Neck Exam: Positive: Supple Heart Exam: Positive: Other (occasional extra beat), Rate Normal, Regular Rhythm Abdomen Exam: Positive: Normal bowel sounds, Soft Extremity Exam: Positive: Normal pulses, Negative: Clubbing, Cyanosis, Edema Neuro Exam: Positive: Other (left grib weaker than right, moves right foot but not left sided lower extremity, no facial droop) Assessment /Plan Problems Problems: (1) Acute ischemic stroke Status: Acute Problem Text: in the region of bilateral Anterior cerebral arteries which do show complete blockage in MRA also in the right MCA artery distribution . because of thia showeres of infarction embolic event is suspected EDGAR negative will continue with ASA. (2) Acute metabolic encephalopathy Status: Acute Response to Treatment: Improving Problem Text: * infracts identified on MRI, acute infarctions involving the right basal ganglia, high right frontal lobe, and smaller foci along the bilateral medial frontal lobes * unknown etiology, will order EDGAR for am to rule out Cardioembolic event * Dr Ken is consulted * continue asa (3) HTN (hypertension) Status: Chronic Response to Treatment: Stable (4) Seizure disorder Status: Chronic Problem Text: * pt is normally on phenytoin but level was subtherapeutic at 4.7 * received a bolus 2/4 * now on 100 TID (5) Hypokalemia Status: Acute Problem Text: * will order K run 20meq (6) Leukocytosis Status: Acute Response to Treatment: Improving Problem Text: * likely reactive * blood cx, urine cx, and mrsa screen pending (7) ROCAEL (acute kidney injury) Status: Resolved Problem Text: was likely due to rhabdo, pt was on the floor for an unknown period of time continue IV fluids (8) Rhabdomyolysis Status: Acute Response to Treatment: Improving Problem Text: * continue IV hydration * NS 150 cc/hr Plan/VTE VTE Prophylaxis Ordered?: Yes Plan/Urinary Catheter Reason for insertion/continuin: Critical Pt monitoring VS, I&O, 24H, [facility] Vital Signs/I&O Vital Signs Date Time Temp Pulse Resp B/P Pulse Ox O2 Delivery O2 Flow Rate FiO2 08/30/16 09:30 162/98 08/30/16 08:00 99.3 62 20 91 Room Air 08/29/16 13:40 2 I&O- Last 24 Hours up to 6 AM 08/30/16 05:59 Intake Total 540 ml Balance 540 ml Laboratory Data 24H LABS Laboratory Tests 2 08/30/16 05:32: Blood Urea Nitrogen 20H, Creatinine 0.92, Sodium Level 143, Potassium Level 3.5 , Chloride Level 105, Carbon Dioxide Level 29, Calcium Level 8.0L, Aspartate Amino Transf (AST/SGOT) 198H, Alanine Aminotransferase (ALT/SGPT) 127H, Total Creatine Kinase 3366H, Alkaline Phosphatase 50, Total Bilirubin 0.6, Total Protein 5.5L, Albumin 2.6L, Albumin/Globulin Ratio 0.90L, Anion Gap 9, White Blood Count 12.6H, Red Blood Count 4.35, Hemoglobin 14.3, Hematocrit 40.7L, Mean Corpuscular Volume 93.6, Mean Corpuscular Hemoglobin 32.9, Mean Corpuscular Hemoglobin Concent 35.1, Red Cell Distribution Width 12.6, Platelet Count 153, Neutrophils (%) (Auto) 75.6H, Lymphocytes (%) (Auto) 13.9L, Monocytes (%) (Auto) 5.1H, Eosinophils (%) (Auto) 3.9H, Basophils (%) (Auto) 0.4 , Neutrophils # (Auto) 9.5H, Lymphocytes # (Auto) 1.8, Monocytes # (Auto) 0.6, Eosinophils # (Auto) 0.5, Basophils # (Auto) 0.0, Glomerular Filtration Rate > 60.0, Large Unclassified Cells # 0.2, Large Unclassified Cells % 1.2, Magnesium Level 1.9 CBC/BMP Laboratory Tests 08/30/16 05:32 Calcium Level 8.0 L, Aspartate Amino Transf (AST/SGOT) 198 H, Alanine Aminotransferase (ALT/SGPT) 127 H, Total Creatine Kinase 3366 H, Alkaline Phosphatase 50, Total Bilirubin 0.6, Total Protein 5.5 L, Albumin 2.6 L, Red Blood Count 4.35, Mean Corpuscular Volume 93.6, Mean Corpuscular Hemoglobin 32.9 , Mean Corpuscular Hemoglobin Concent 35.1, Red Cell Distribution Width 12.6, Neutrophils (%) (Auto) 75.6 H, Lymphocytes (%) (Auto) 13.9 L, Monocytes (%) ( Auto) 5.1 H, Eosinophils (%) (Auto) 3.9 H, Basophils (%) (Auto) 0.4, Neutrophils # (Auto) 9.5 H, Lymphocytes # (Auto) 1.8, Monocytes # (Auto) 0.6, Eosinophils # (Auto) 0.5, Basophils # (Auto) 0.0 Microbiology Microbiology 08/26/16 Blood Culture - Preliminary, Resulted No Growth after 72 hours. All specime... 08/27/16 MRSA Screen - Final, Complete 08/27/16 Urine Culture - Final, Complete CARLOS JOHNSON MD Aug 30, 2016 13:28
[2016-08-30 14:25] VITALS: BP 130/66
[2016-08-30 20:31] VITALS: BP 160/97
[2016-08-30 22:00] VITALS: BP 152/88
[2016-08-30] MEDS: ATORVASTATIN 20 MG TAB PO SCH (22:04)
[2016-08-30] MEDS: PANTOPRAZOLE 40MG INJ (PROTONIX) (C9113) IV SCH (22:04)
[2016-08-31 06:00] VITALS: BP 149/95
[2016-08-31 06:18] LABS: BASO % 0.2 % (0.0-1.0); EOS # 0.5 K/mm3 (0.0-0.50); EOS % 3.8 % (0.0-3.0); LARGE UNSTAINED CELL # 0.2 K/mm3 (0.0-0.4); LARGE UNSTAINED CELL % 1.4 % (0.0-4.0); LYMPH # 1.8 K/mm3 (1.5-4.5); LYMPH % 13.6 % (24.0-44.0); MEAN CORPUSCULAR HEMOGLOBIN 32.9 pg (27.0-33.0); MEAN CORPUSCULAR HGB CONC 34.3 g/dl (32.0-36.5); MEAN CORPUSCULAR VOLUME 95.9 fl (80.0-96.0); MONO # 0.7 K/mm3 (0.0-0.8); NEUTROPHILS # 9.2 K/mm3 (1.8-7.7); NEUTROPHILS % 75.1 % (36.0-66.0); PLATELET COUNT, AUTOMATED 166 k/mm3 (150-450); WHITE BLOOD COUNT 12.3 K/mm3 (4.0-10.0)
[2016-08-31 06:51] LABS: ALBUMIN 2.5 GM/DL (3.2-5.2); ALBUMIN/GLOBULIN RATIO 0.83 (1.00-1.93); ALKALINE PHOSPHATASE 44 U/L (45-117); ALT/SGPT 105 U/L (12-78); ANION GAP 9 MEQ/L (8-16); AST/SGOT 110 U/L (15-37); BILIRUBIN,TOTAL 0.4 MG/DL (0.2-1.0); BLOOD UREA NITROGEN 23 MG/DL (7-18); CALCIUM LEVEL 7.8 MG/DL (8.8-10.2); CARBON DIOXIDE LEVEL 30 MEQ/L (21-32); CHLORIDE LEVEL 108 MEQ/L (98-107); CREATININE FOR GFR 0.96 MG/DL (0.70-1.30); GLOMERULAR FILTRATION RATE > 60.0 (>49); GLUCOSE, FASTING 118 MG/DL (80-110); POTASSIUM SERUM 3.4 MEQ/L (3.5-5.1); SODIUM LEVEL 147 MEQ/L (136-145); TOTAL PROTEIN 5.5 GM/DL (6.4-8.2)
[2016-08-31] MEDS: SLF 3 ML SYR IV SCH ×3 (06:54→20:11)
[2016-08-31] MEDS: METOPROLOL TART 25 MG TABLET PO SCH ×3 (06:55→22:51)
[2016-08-31] MEDS: ASPIRIN 325 MG TAB PO SCH (09:38)
[2016-08-31] MEDS: PHENYTOIN ER 100 MG CAP PO SCH ×3 (09:41→20:11)
[2016-08-31] MEDS: LOSARTAN 50 MG TAB PO SCH (09:41)
--- NOTE | 2016-08-31 13:23 | IPNPDOC ---
Subjective General Date Seen The patient was seen on 08/31/16. Subjective Chief Complaint/HPI The patient is a 66-year-old male admitted with a reason for visit of Acute Metabolic Encephalopathy. Events since last encounter no complaints, persistent weakness of the left but able to talk well , no swallowing issues eating his meals. no fever or chills,no nausea or vomiting or diarrhea. Had several bowel movements yesterday after many days of constipation. Objective Physical Examination General Exam: Positive: No Acute Distress, Other (open his eyes and can follow some commands but doesn't answer questions) Eye Exam: Positive: Conjunctiva & lids normal ENT Exam: Positive: Mucous membr. moist/pink Neck Exam: Positive: Supple Heart Exam: Positive: Other (occasional extra beat), Rate Normal, Regular Rhythm Abdomen Exam: Positive: Normal bowel sounds, Soft Extremity Exam: Positive: Normal pulses, Negative: Clubbing, Cyanosis, Edema Neuro Exam: Positive: Other (left grib weaker than right, moves right foot but not left sided lower extremity, no facial droop) Assessment /Plan Problems Problems: (1) Acute ischemic stroke Status: Acute Problem Text: in the region of bilateral Anterior cerebral arteries which do show complete blockage in MRA also in the right MCA artery distribution . because of thia showeres of infarction embolic event is suspected EDGAR negative will continue with ASA. (2) Acute metabolic encephalopathy Status: Resolved Problem Text: * infracts identified on MRI, acute infarctions involving the right basal ganglia, high right frontal lobe, and smaller foci along the bilateral medial frontal lobes * unknown etiology, will order EDGAR for am to rule out Cardioembolic event * Dr Ken is consulted * continue asa (3) HTN (hypertension) Status: Chronic Response to Treatment: Stable (4) Seizure disorder Status: Chronic Problem Text: * pt is normally on phenytoin but level was subtherapeutic at 4.7 * received a bolus 2/4 * now on 100 TID (5) Hypokalemia Status: Acute Problem Text: * will order K run 20meq (6) Leukocytosis Status: Acute Response to Treatment: Improving Problem Text: * likely reactive * blood cx, urine cx, and mrsa screen pending (7) ROCAEL (acute kidney injury) Status: Resolved Problem Text: was likely due to rhabdo, pt was on the floor for an unknown period of time continue IV fluids (8) Rhabdomyolysis Status: Acute Response to Treatment: Improving Problem Text: * continue IV hydration * NS 150 cc/hr Plan/VTE VTE Prophylaxis Ordered?: Yes Plan/Urinary Catheter Reason for insertion/continuin: Critical Pt monitoring VS, [facility]O, [facility]O Vital Signs Date Time Temp Pulse Resp B/P Pulse Ox O2 Delivery O2 Flow Rate FiO2 08/31/16 09:41 158/95 08/31/16 06:55 64 08/31/16 06:00 97.9 20 92 Room Air 08/29/16 13:40 2 I&O- Last 24 Hours up to 6 AM 08/31/16 06:00 Intake Total 1560 ml Output Total 200 ml Balance 1360 ml Laboratory Data 24H LABS Laboratory Tests 2 08/31/16 05:50: Blood Urea Nitrogen 23H, Creatinine 0.96, Sodium Level 147H, Potassium Level 3.4L, Chloride Level 108H, Carbon Dioxide Level 30, Calcium Level 7.8L, Aspartate Amino Transf (AST/SGOT) 110H, Alanine Aminotransferase (ALT/SGPT) 105H , Total Creatine Kinase 1368H, Alkaline Phosphatase 44L, Total Bilirubin 0.4, Total Protein 5.5L, Albumin 2.5L, Albumin/Globulin Ratio 0.83L, Anion Gap 9, White Blood Count 12.3H, Red Blood Count 4.15L, Hemoglobin 13.6L, Hematocrit 39.8L, Mean Corpuscular Volume 95.9, Mean Corpuscular Hemoglobin 32.9, Mean Corpuscular Hemoglobin Concent 34.3, Red Cell Distribution Width 13.0, Platelet Count 166, Neutrophils (%) (Auto) 75.1H, Lymphocytes (%) (Auto) 13.6L, Monocytes (%) (Auto) 6.0H, Eosinophils (%) (Auto) 3.8H, Basophils (%) (Auto) 0.2 , Neutrophils # (Auto) 9.2H, Lymphocytes # (Auto) 1.8, Monocytes # (Auto) 0.7, Eosinophils # (Auto) 0.5, Basophils # (Auto) 0.0, Glomerular Filtration Rate > 60.0, Large Unclassified Cells # 0.2, Large Unclassified Cells % 1.4, Magnesium Level 2.0 CBC/BMP Laboratory Tests 08/31/16 05:50 Calcium Level 7.8 L, Aspartate Amino Transf (AST/SGOT) 110 H, Alanine Aminotransferase (ALT/SGPT) 105 H, Total Creatine Kinase 1368 H, Alkaline Phosphatase 44 L, Total Bilirubin 0.4, Total Protein 5.5 L, Albumin 2.5 L, Red Blood Count 4.15 L, Mean Corpuscular Volume 95.9, Mean Corpuscular Hemoglobin 32.9, Mean Corpuscular Hemoglobin Concent 34.3, Red Cell Distribution Width 13.0 , Neutrophils (%) (Auto) 75.1 H, Lymphocytes (%) (Auto) 13.6 L, Monocytes (%) ( Auto) 6.0 H, Eosinophils (%) (Auto) 3.8 H, Basophils (%) (Auto) 0.2, Neutrophils # (Auto) 9.2 H, Lymphocytes # (Auto) 1.8, Monocytes # (Auto) 0.7, Eosinophils # (Auto) 0.5, Basophils # (Auto) 0.0 Microbiology Microbiology 08/26/16 Blood Culture - Preliminary, Resulted No Growth after 72 hours. All specime... 08/27/16 MRSA Screen - Final, Complete 08/27/16 Urine Culture - Final, Complete CARLOS JOHNSON MD Aug 31, 2016 13:23
[2016-08-31 14:00] VITALS: BP 150/89
[2016-08-31] MEDS: PANTOPRAZOLE 40MG INJ (PROTONIX) (C9113) IV SCH (20:10)
[2016-08-31] MEDS: ATORVASTATIN 20 MG TAB PO SCH (20:11)
[2016-08-31 22:00] VITALS: BP 172/118
[2016-08-31] MEDS: ACETAMINOPHEN TAB 650MG DOSE (2X325MG) PO PRN (23:55)
[2016-09-01 02:00] VITALS: BP 140/90
[2016-09-01 06:00] VITALS: BP 140/95
[2016-09-01 06:17] LABS: BASO % 0.3 % (0.0-1.0); EOS # 0.5 K/mm3 (0.0-0.50); EOS % 3.9 % (0.0-3.0); LARGE UNSTAINED CELL # 0.2 K/mm3 (0.0-0.4); LARGE UNSTAINED CELL % 1.2 % (0.0-4.0); LYMPH # 2.2 K/mm3 (1.5-4.5); LYMPH % 15.6 % (24.0-44.0); MEAN CORPUSCULAR HEMOGLOBIN 33.2 pg (27.0-33.0); MEAN CORPUSCULAR HGB CONC 34.8 g/dl (32.0-36.5); MEAN CORPUSCULAR VOLUME 95.4 fl (80.0-96.0); MONO # 0.9 K/mm3 (0.0-0.8); MONO % 7.2 % (0.0-5.0); NEUTROPHILS # 9.2 K/mm3 (1.8-7.7); NEUTROPHILS % 71.8 % (36.0-66.0); PLATELET COUNT, AUTOMATED 155 k/mm3 (150-450); WHITE BLOOD COUNT 12.8 K/mm3 (4.0-10.0)
[2016-09-01 06:26] LABS: ALBUMIN 2.5 GM/DL (3.2-5.2); ALBUMIN/GLOBULIN RATIO 0.96 (1.00-1.93); ALKALINE PHOSPHATASE 54 U/L (45-117); ALT/SGPT 104 U/L (12-78); ANION GAP 9 MEQ/L (8-16); AST/SGOT 83 U/L (15-37); BILIRUBIN,TOTAL 0.4 MG/DL (0.2-1.0); BLOOD UREA NITROGEN 27 MG/DL (7-18); CALCIUM LEVEL 7.7 MG/DL (8.8-10.2); CARBON DIOXIDE LEVEL 30 MEQ/L (21-32); CHLORIDE LEVEL 107 MEQ/L (98-107); CREATININE FOR GFR 0.96 MG/DL (0.70-1.30); GLOMERULAR FILTRATION RATE > 60.0 (>49); GLUCOSE, FASTING 103 MG/DL (80-110); MAGNESIUM LEVEL 2.1 MG/DL (1.8-2.4); POTASSIUM SERUM 3.5 MEQ/L (3.5-5.1); SODIUM LEVEL 146 MEQ/L (136-145); TOTAL PROTEIN 5.1 GM/DL (6.4-8.2)
[2016-09-01] MEDS: METOPROLOL TART 25 MG TABLET PO SCH ×3 (06:31→22:49)
[2016-09-01] MEDS: SLF 3 ML SYR IV SCH ×3 (06:31→22:49)
[2016-09-01] MEDS: LOSARTAN 50 MG TAB PO SCH (09:50)
[2016-09-01] MEDS: PHENYTOIN ER 100 MG CAP PO SCH ×3 (09:50→22:49)
[2016-09-01] MEDS: ASPIRIN 325 MG TAB PO SCH (09:50)
--- NOTE | 2016-09-01 10:52 | IPNPDOC ---
Subjective General Date Seen The patient was seen on 09/01/16. Subjective Chief Complaint/HPI The patient is a 66-year-old male admitted with a reason for visit of Acute Metabolic Encephalopathy. Events since last encounter no new issues overnight , worked with PT yesterday. Objective Physical Examination General Exam: Positive: No Acute Distress, Other (open his eyes and can follow some commands but doesn't answer questions) Eye Exam: Positive: Conjunctiva & lids normal ENT Exam: Positive: Mucous membr. moist/pink Neck Exam: Positive: Supple Heart Exam: Positive: Other (occasional extra beat), Rate Normal, Regular Rhythm Abdomen Exam: Positive: Normal bowel sounds, Soft Extremity Exam: Positive: Normal pulses, Negative: Clubbing, Cyanosis, Edema Neuro Exam: Positive: Other (left grib weaker than right, moves right foot but not left sided lower extremity, no facial droop) Assessment /Plan Problems Problems: (1) Acute ischemic stroke Status: Acute Problem Text: in the region of bilateral Anterior cerebral arteries which do show complete blockage in MRA also in the right MCA artery distribution . because of thia showeres of infarction embolic event is suspected EDGAR negative will continue with ASA. (2) Acute metabolic encephalopathy Status: Resolved Problem Text: * infracts identified on MRI, acute infarctions involving the right basal ganglia, high right frontal lobe, and smaller foci along the bilateral medial frontal lobes * unknown etiology, will order EDGAR for am to rule out Cardioembolic event * Dr Ken is consulted * continue asa (3) HTN (hypertension) Status: Chronic Response to Treatment: Stable (4) Seizure disorder Status: Chronic Problem Text: * pt is normally on phenytoin but level was subtherapeutic at 4.7 * received a bolus 2/4 * now on 100 TID (5) Hypokalemia Status: Acute Problem Text: * will order K run 20meq (6) Leukocytosis Status: Acute Response to Treatment: Improving Problem Text: * likely reactive * blood cx, urine cx, and mrsa screen pending (7) ROCAEL (acute kidney injury) Status: Resolved Problem Text: was likely due to rhabdo, pt was on the floor for an unknown period of time continue IV fluids (8) Rhabdomyolysis Status: Acute Response to Treatment: Improving Problem Text: * continue IV hydration * NS 150 cc/hr Plan/VTE VTE Prophylaxis Ordered?: Yes Plan/Urinary Catheter Reason for insertion/continuin: Critical Pt monitoring VS, I&O, [facility]/I&O Vital Signs Date Time Temp Pulse Resp B/P Pulse Ox O2 Delivery O2 Flow Rate FiO2 09/01/16 09:50 139/96 09/01/16 06:31 65 09/01/16 06:00 98.1 20 93 Room Air 08/29/16 13:40 2 I&O- Last 24 Hours up to 6 AM 09/01/16 06:00 Intake Total 1820 ml Output Total 0 ml Balance 1820 ml Laboratory Data 24H LABS Laboratory Tests 2 09/01/16 05:58: Blood Urea Nitrogen 27H, Creatinine 0.96, Sodium Level 146H, Potassium Level 3.5 , Chloride Level 107, Carbon Dioxide Level 30, Calcium Level 7.7L, Aspartate Amino Transf (AST/SGOT) 83H, Alanine Aminotransferase (ALT/SGPT) 104H, Alkaline Phosphatase 54, Total Bilirubin 0.4, Total Protein 5.1L, Albumin 2.5L, Albumin/ Globulin Ratio 0.96L, Anion Gap 9, White Blood Count 12.8H, Red Blood Count 4.02L, Hemoglobin 13.3L, Hematocrit 38.3L, Mean Corpuscular Volume 95.4, Mean Corpuscular Hemoglobin 33.2H, Mean Corpuscular Hemoglobin Concent 34.8, Red Cell Distribution Width 13.0, Platelet Count 155, Neutrophils (%) (Auto) 71.8H, Lymphocytes (%) (Auto) 15.6L, Monocytes (%) (Auto) 7.2H, Eosinophils (%) (Auto) 3.9H, Basophils (%) (Auto) 0.3, Neutrophils # (Auto) 9.2H, Lymphocytes # (Auto) 2.2, Monocytes # (Auto) 0.9H, Eosinophils # (Auto) 0.5, Basophils # (Auto) 0.0, Glomerular Filtration Rate > 60.0, Large Unclassified Cells # 0.2, Large Unclassified Cells % 1.2, Magnesium Level 2.1, Phenytoin (Dilantin) Level 5.0L CBC/BMP Laboratory Tests 09/01/16 05:58 Calcium Level 7.7 L, Aspartate Amino Transf (AST/SGOT) 83 H, Alanine Aminotransferase (ALT/SGPT) 104 H, Alkaline Phosphatase 54, Total Bilirubin 0.4 , Total Protein 5.1 L, Albumin 2.5 L, Red Blood Count 4.02 L, Mean Corpuscular Volume 95.4, Mean Corpuscular Hemoglobin 33.2 H, Mean Corpuscular Hemoglobin Concent 34.8, Red Cell Distribution Width 13.0, Neutrophils (%) (Auto) 71.8 H, Lymphocytes (%) (Auto) 15.6 L, Monocytes (%) (Auto) 7.2 H, Eosinophils (%) (Auto ) 3.9 H, Basophils (%) (Auto) 0.3, Neutrophils # (Auto) 9.2 H, Lymphocytes # ( Auto) 2.2, Monocytes # (Auto) 0.9 H, Eosinophils # (Auto) 0.5, Basophils # (Auto ) 0.0 Microbiology Microbiology 08/26/16 Blood Culture - Final, Complete NO GROWTH AFTER 5 DAYS 08/27/16 MRSA Screen - Final, Complete 08/27/16 Urine Culture - Final, Complete CARLOS JOHNSON MD Sep 01, 2016 10:52
[2016-09-01 14:00] VITALS: BP 145/92
[2016-09-01 14:41] VITALS: BP 177/88
[2016-09-01 17:14] VITALS: BP 144/90
[2016-09-01 22:00] VITALS: BP 182/107
[2016-09-01] MEDS: PANTOPRAZOLE 40MG INJ (PROTONIX) (C9113) IV SCH (22:49)
[2016-09-01] MEDS: ATORVASTATIN 20 MG TAB PO SCH (22:49)
[2016-09-02] MEDS: SLF 3 ML SYR IV SCH ×3 (05:58→21:46)
[2016-09-02] MEDS: METOPROLOL TART 25 MG TABLET PO SCH ×3 (05:58→21:46)
[2016-09-02 06:00] VITALS: BP 170/107
[2016-09-02 06:00] LABS: BASO # 0.1 K/mm3 (0.0-0.2); BASO % 0.5 % (0.0-1.0); EOS # 0.5 K/mm3 (0.0-0.50); EOS % 3.6 % (0.0-3.0); LARGE UNSTAINED CELL # 0.1 K/mm3 (0.0-0.4); LYMPH # 1.9 K/mm3 (1.5-4.5); LYMPH % 12.9 % (24.0-44.0); MEAN CORPUSCULAR HEMOGLOBIN 33.1 pg (27.0-33.0); MEAN CORPUSCULAR HGB CONC 34.9 g/dl (32.0-36.5); MONO # 0.9 K/mm3 (0.0-0.8); MONO % 6.7 % (0.0-5.0); NEUTROPHILS # 10.1 K/mm3 (1.8-7.7); NEUTROPHILS % 75.3 % (36.0-66.0); PLATELET COUNT, AUTOMATED 155 k/mm3 (150-450); RED CELL DISTRIBUTION WIDTH 12.8 % (11.5-14.5); WHITE BLOOD COUNT 13.4 K/mm3 (4.0-10.0)
[2016-09-02 06:05] LABS: ALBUMIN 2.6 GM/DL (3.2-5.2); ALKALINE PHOSPHATASE 62 U/L (45-117); ALT/SGPT 98 U/L (12-78); ANION GAP 7 MEQ/L (8-16); AST/SGOT 72 U/L (15-37); BILIRUBIN,TOTAL 0.4 MG/DL (0.2-1.0); BLOOD UREA NITROGEN 20 MG/DL (7-18); CALCIUM LEVEL 7.9 MG/DL (8.8-10.2); CARBON DIOXIDE LEVEL 32 MEQ/L (21-32); CHLORIDE LEVEL 102 MEQ/L (98-107); CREATININE FOR GFR 0.94 MG/DL (0.70-1.30); GLOMERULAR FILTRATION RATE > 60.0 (>49); GLUCOSE, FASTING 106 MG/DL (80-110); MAGNESIUM LEVEL 1.9 MG/DL (1.8-2.4); POTASSIUM SERUM 3.4 MEQ/L (3.5-5.1); SODIUM LEVEL 141 MEQ/L (136-145); TOTAL PROTEIN 5.5 GM/DL (6.4-8.2)
[2016-09-02 08:10] VITALS: BP 166/92
[2016-09-02] MEDS: PHENYTOIN ER 100 MG CAP PO SCH ×3 (09:49→21:46)
[2016-09-02] MEDS: LOSARTAN 50 MG TAB PO SCH (09:49)
[2016-09-02] MEDS: ASPIRIN 325 MG TAB PO SCH (09:49)
[2016-09-02 10:00] VITALS: BP 159/92
[2016-09-02] MEDS ORDERED: FUROSEMIDE 40 MG/4 ML VIAL (J1940) IV ONE (11:00)
--- NOTE | 2016-09-02 12:07 | IPNPDOC ---
Subjective General Date Seen The patient was seen on 09/02/16. Subjective Chief Complaint/HPI The patient is a 66-year-old male admitted with a reason for visit of Acute Metabolic Encephalopathy. Events since last encounter requiring oxygen this am , appears slightly puffy overall. no fever or chills, no chest pain or shortness of breath Objective Physical Examination General Exam: Positive: No Acute Distress, Other (open his eyes and can follow some commands but doesn't answer questions) Eye Exam: Positive: Conjunctiva & lids normal ENT Exam: Positive: Mucous membr. moist/pink Neck Exam: Positive: Supple Heart Exam: Positive: Other (occasional extra beat), Rate Normal, Regular Rhythm Abdomen Exam: Positive: Normal bowel sounds, Soft Extremity Exam: Positive: Normal pulses, Negative: Clubbing, Cyanosis, Edema Neuro Exam: Positive: Other (left grib weaker than right, moves right foot but not left sided lower extremity, no facial droop) Assessment /Plan Problems Problems: (1) Acute ischemic stroke Status: Acute Problem Text: in the region of bilateral Anterior cerebral arteries which do show complete blockage in MRA also in the right MCA artery distribution . because of thia showeres of infarction embolic event is suspected EDGAR negative will continue with ASA. (2) Acute metabolic encephalopathy Status: Resolved Problem Text: * infracts identified on MRI, acute infarctions involving the right basal ganglia, high right frontal lobe, and smaller foci along the bilateral medial frontal lobes * unknown etiology, will order EDGAR for am to rule out Cardioembolic event * Dr Ken is consulted * continue asa (3) HTN (hypertension) Status: Chronic Response to Treatment: Stable (4) Seizure disorder Status: Chronic Problem Text: * pt is normally on phenytoin but level was subtherapeutic at 4.7 * received a bolus 2/4 * now on 100 TID (5) Hypokalemia Status: Acute Problem Text: * will order K run 20meq (6) Leukocytosis Status: Acute Response to Treatment: Improving Problem Text: * likely reactive * blood cx, urine cx, and mrsa screen pending (7) ROCAEL (acute kidney injury) Status: Resolved Problem Text: was likely due to rhabdo, pt was on the floor for an unknown period of time continue IV fluids (8) Rhabdomyolysis Status: Acute Response to Treatment: Improving Problem Text: * continue IV hydration * NS 150 cc/hr Plan/VTE VTE Prophylaxis Ordered?: Yes Plan/Urinary Catheter Reason for insertion/continuin: Critical Pt monitoring VS, [facility]&O[facility]&O Vital Signs Date Time Temp Pulse Resp B/P Pulse Ox O2 Delivery O2 Flow Rate FiO2 09/02/16 09:49 162/98 09/02/16 06:00 98.7 68 19 93 Room Air 08/29/16 13:40 2 I&O- Last 24 Hours up to 6 AM 09/02/16 06:00 Intake Total 2360 ml Output Total 0 ml Balance 2360 ml Laboratory Data 24H LABS Laboratory Tests 2 09/02/16 04:53: Blood Urea Nitrogen 20H, Creatinine 0.94, Sodium Level 141, Potassium Level 3.4L , Chloride Level 102, Carbon Dioxide Level 32, Calcium Level 7.9L, Aspartate Amino Transf (AST/SGOT) 72H, Alanine Aminotransferase (ALT/SGPT) 98H, Alkaline Phosphatase 62, Total Bilirubin 0.4, Total Protein 5.5L, Albumin 2.6L, Albumin/ Globulin Ratio 0.90L, Anion Gap 7L, White Blood Count 13.4H, Red Blood Count 4.15L, Hemoglobin 13.7L, Hematocrit 39.4L, Mean Corpuscular Volume 95.0, Mean Corpuscular Hemoglobin 33.1H, Mean Corpuscular Hemoglobin Concent 34.9, Red Cell Distribution Width 12.8, Platelet Count 155, Neutrophils (%) (Auto) 75.3H, Lymphocytes (%) (Auto) 12.9L, Monocytes (%) (Auto) 6.7H, Eosinophils (%) (Auto) 3.6H, Basophils (%) (Auto) 0.5, Neutrophils # (Auto) 10.1H, Lymphocytes # (Auto ) 1.9, Monocytes # (Auto) 0.9H, Eosinophils # (Auto) 0.5, Basophils # (Auto) 0.1 , Glomerular Filtration Rate > 60.0, Large Unclassified Cells # 0.1, Large Unclassified Cells % 1.0, Magnesium Level 1.9 CBC/BMP Laboratory Tests 09/02/16 04:53 Calcium Level 7.9 L, Aspartate Amino Transf (AST/SGOT) 72 H, Alanine Aminotransferase (ALT/SGPT) 98 H, Alkaline Phosphatase 62, Total Bilirubin 0.4, Total Protein 5.5 L, Albumin 2.6 L, Red Blood Count 4.15 L, Mean Corpuscular Volume 95.0, Mean Corpuscular Hemoglobin 33.1 H, Mean Corpuscular Hemoglobin Concent 34.9, Red Cell Distribution Width 12.8, Neutrophils (%) (Auto) 75.3 H, Lymphocytes (%) (Auto) 12.9 L, Monocytes (%) (Auto) 6.7 H, Eosinophils (%) (Auto ) 3.6 H, Basophils (%) (Auto) 0.5, Neutrophils # (Auto) 10.1 H, Lymphocytes # ( Auto) 1.9, Monocytes # (Auto) 0.9 H, Eosinophils # (Auto) 0.5, Basophils # (Auto ) 0.1 Microbiology Microbiology 08/26/16 Blood Culture - Final, Complete NO GROWTH AFTER 5 DAYS 08/27/16 MRSA Screen - Final, Complete 08/27/16 Urine Culture - Final, Complete CARLOS JOHNSON MD Sep 02, 2016 12:07
[2016-09-02] MEDS: PANTOPRAZOLE 40MG INJ (PROTONIX) (C9113) IV SCH (21:45)
[2016-09-02] MEDS: ATORVASTATIN 20 MG TAB PO SCH (21:45)
[2016-09-02 22:00] VITALS: BP 141/82
[2016-09-03 05:58] LABS: MEAN CORPUSCULAR HGB CONC 34.8 g/dl (32.0-36.5); PLATELET COUNT, AUTOMATED 149 k/mm3 (150-450); WHITE BLOOD COUNT 21.6 K/mm3 (4.0-10.0)
[2016-09-03 06:00] VITALS: BP 126/73
[2016-09-03] MEDS: SLF 3 ML SYR IV SCH ×3 (06:00→21:48)
[2016-09-03] MEDS: METOPROLOL TART 25 MG TABLET PO SCH ×3 (06:00→21:48)
[2016-09-03 06:04] LABS: ANION GAP 8 MEQ/L (8-16); BLOOD UREA NITROGEN 25 MG/DL (7-18); CALCIUM LEVEL 7.8 MG/DL (8.8-10.2); CARBON DIOXIDE LEVEL 30 MEQ/L (21-32); CHLORIDE LEVEL 102 MEQ/L (98-107); CREATININE FOR GFR 1.16 MG/DL (0.70-1.30); GLOMERULAR FILTRATION RATE > 60.0 (>49); GLUCOSE, FASTING 168 MG/DL (80-110); POTASSIUM SERUM 3.2 MEQ/L (3.5-5.1); SODIUM LEVEL 140 MEQ/L (136-145)
[2016-09-03 06:27] LABS: BANDS 3 % (< 11)
--- NOTE | 2016-09-03 07:50 | REPUSA ---
CLINICAL HISTORY: R/O ACUTE STROKE TECHNIQUE: Multiple axial CT images were obtained through the brain without IV contrast material. COMMENTS: Compared to 08/26/16 CT. Birontal yamileth hole craniotomies are again seen. Large right basal ganglia infarct is noted, measuring 2 x 2 cm (previously 1.7 x 1.6 cm) The infarct is likely subacute with some expansion/evolvement since the prior study. Consider follow up with MRI if clinically warranted. There is normal configuration of sella turcica. There are no intra or extra-axial collections. There is no mass effect or midline shift. There is no evidence of hematoma formation. No hydrocephalus is p resent. The ventricles are symmetrical. No abnormal calcifications are present. There is diffuse age-appropriate cerebellar and cerebral atrophy with proportionally dilated ventricl es and cortical sulci. There are bilateral periventricular and subcortical white matter hypolucencies compatible with mild c hronic microvascular disease. IMPRESSION: 1. Age-appropriate cerebellar and cerebral atrophy. 2. Mild chronic microvascular disease. 3. Large right basal ganglia infarct is noted, measuring 2 x 2 cm (previously 1.7 x 1.6 cm) The infar ct is likely subacute with some expansion/evolvement since the prior study. Consider follow up with [facility] if clinically warranted. Thank you for your kind referral of this patient.
[2016-09-03 09:01] LABS: ABG BASE EXCESS 3.4 (-2.0-2.0); ABG HCO3 25.3 MEQ/L (22.0-26.0); ABG PARTIAL PRESSURE CO2 30.7 mmHg (35.0-45.0); ABG PARTIAL PRESSURE O2 77.8 mmHg (75.0-100.0); ABG STANDARD HCO3 27.5 MEQ/L (22.0-26.0); ABG TOTAL CO2 26.3 MEQ/L (23.0-31.0); ABG pH (ARTERIAL) 7.534 UNITS (7.350-7.450)
[2016-09-03] MEDS: KCL 40MEQ in NS 1000ML 1,000 ML IV SCH ×2 (09:24→21:48)
[2016-09-03] MEDS: PHENYTOIN ER 100 MG CAP PO SCH ×3 (09:25→21:47)
[2016-09-03] MEDS: ASPIRIN 325 MG TAB PO SCH (09:25)
[2016-09-03] MEDS: LOSARTAN 50 MG TAB PO SCH (09:27)
--- NOTE | 2016-09-03 11:00 | IPNPDOC ---
Subjective General Date Seen The patient was seen on 09/03/16. Subjective Chief Complaint/HPI The patient is a 66-year-old male admitted with a reason for visit of Acute Metabolic Encephalopathy. Events since last encounter patient has been less alert since last night . Not talking this am though awake. not following commands. nofever or chills, no diarrhea or vomiting , blood pressure has been on the lower side. did not eat breakfast. repeat CT done read as increased size of previous stroke not very clear will get stat MRi . also with high WBC this am with elevated lactate so could have an infection somewhere will get ua , uc, blood culture, hold antihypertensives , start ivf. check lactate. Objective Physical Examination General Exam: Positive: No Acute Distress, Other (open eyes, but not communicating today, not following commands. ) Eye Exam: Positive: Conjunctiva & lids normal ENT Exam: Positive: Mucous membr. moist/pink Neck Exam: Positive: Supple Heart Exam: Positive: Other (occasional extra beat), Rate Normal, Regular Rhythm Abdomen Exam: Positive: Normal bowel sounds, Soft Extremity Exam: Positive: Normal pulses, Negative: Clubbing, Cyanosis, Edema Neuro Exam: Positive: Other (left grib weaker than right, moves right foot but not left sided lower extremity, no facial droop) Assessment /Plan Problems Problems: (1) Decreased alertness Status: Acute Problem Text: Rule out infection Vs new or worsening of stroke. repeat CT done read as increased size of previous stroke not very clear will get stat MRi . also with high WBC this am with elevated lactate so could have an infection somewhere will get ua , uc, blood culture, hold antihypertensives , start ivf. check lactate if no source of infection found or worsening of stroke seen patient could be dehydrated due to inadequate oral intake causing high lactate and reactionary elevation of WBC. (2) Acute ischemic stroke Status: Acute Problem Text: in the region of bilateral Anterior cerebral arteries which do show complete blockage in MRA also in the right MCA artery distribution . because of thia showeres of infarction embolic event is suspected EDGAR negative will continue with ASA. (3) HTN (hypertension) Status: Chronic Response to Treatment: Stable (4) Seizure disorder Status: Chronic Problem Text: * pt is normally on phenytoin but level was subtherapeutic at 4.7 * received a bolus 2/4 * now on 100 TID (5) Hypokalemia Status: Acute Problem Text: * will order K (6) Leukocytosis Status: Acute Response to Treatment: Worse Problem Text: * rule out infection. * blood cx, urine cx, cxr , lactate * could be reactionary , dehydration (7) ROCAEL (acute kidney injury) Status: Resolved Problem Text: was likely due to rhabdo, pt was on the floor for an unknown period of time (8) Rhabdomyolysis Status: Resolved Plan/VTE VTE Prophylaxis Ordered?: Yes Plan/Urinary Catheter Reason for insertion/continuin: Critical Pt monitoring VS, I&O, 24H, Fishbone Vital Signs/I&O Vital Signs Date Time Temp Pulse Resp B/P Pulse Ox O2 Delivery O2 Flow Rate FiO2 09/03/16 09:27 138/90 09/03/16 06:00 99.7 95 19 90 09/02/16 22:00 Room Air 09/02/16 10:00 1.0 I&O- Last 24 Hours up to 6 AM 09/03/16 05:59 Intake Total 1440 ml Balance 1440 ml Laboratory Data 24H LABS Laboratory Tests 2 09/03/16 05:31: Anion Gap 8, Atypical Lymphocytes 3, Band Neutrophils 3, White Blood Count 21.6H , Red Blood Count 4.07L, Hemoglobin 13.5L, Hematocrit 38.7L, Mean Corpuscular Volume 95.0, Mean Corpuscular Hemoglobin 33.0, Mean Corpuscular Hemoglobin Concent 34.8, Red Cell Distribution Width 13.0, Platelet Count 149L, Neutrophils (%) (Auto) , Lymphocytes (%) (Auto) , Monocytes (%) (Auto) , Eosinophils (%) (Auto) , Basophils (%) (Auto) , Neutrophils # (Auto) , Lymphocytes # (Auto) , Monocytes # (Auto) , Eosinophils # (Auto) , Basophils # ( Auto) , Blood Urea Nitrogen 25H, Creatinine 1.16, Sodium Level 140, Potassium Level 3.2L, Chloride Level 102, Carbon Dioxide Level 30, Calcium Level 7.8L, Glomerular Filtration Rate > 60.0, Large Unclassified Cells # , Large Unclassified Cells % , Lymphocytes (Manual) 1L, Monocytes (Manual) 4, Neutrophils 89H, Platelet Estimate NORMAL, Red Blood Cell Morphology NORMAL 09/03/16 08:19: Lactic Acid (Sepsis) 2.3*H 09/03/16 08:36: Arterial Blood pH 7.534H, Arterial Blood Partial Pressure CO2 30.7L, Arterial Blood Partial Pressure O2 77.8, Arterial Blood Total CO2 26.3, Arterial Blood HCO3 25.3, Arterial Blood Base Excess 3.4H, Arterial Blood Oxygen Saturation 96.4, Blood Gas Bicarbonate Standard 27.5H 09/03/16 09:43: Urine Amorphous Sediment , Urine Appearance HAZY, Urine Color YELLOW, Urine pH 5.0, Urine Specific Bayard 1.014, Urine Protein NEGATIVE, Urine Glucose (UA) NEGATIVE, Urine Ketones NEGATIVE, Urine Urobilinogen 0.2, Urine Bilirubin NEGATIVE, Urine Leukocyte Esterase 1+H, Urine Bacteria (Auto) 3+H, Urine Blood 1 +H, Urine Calcium Carbonate Cryst(Auto) , Urine Calcium Oxalate Cryst (Auto) , Urine Calcium Phosphate Cassidy (Auto) , Urine Cellular Casts , Urine Cystine Crystals , Urine Granular Casts (Auto) , Urine Hyaline Casts (Auto) 0, Urine Leucine Crystals , Urine Mucus (Auto) SMALL, Urine Nitrite NEGATIVE, Urine Oval Fat Bodies (Auto) , Urine RBC (Auto) 1, Urine Renal Epithelial Cells , Urine Sperm (Auto) , Urine Squamous Epithelial Cells 0, Urine Transitional Epithelial Cells , Urine Trichomonas (Auto) , Urine Triple Phosphate Cryst (Auto) , Urine Tyrosine Crystals , Urine Uric Acid Crystals (Auto) , Urine WBC (Auto) 5H, Urine Waxy Casts (Auto) , Urine Yeast-Like Cells (Auto) CBC/BMP Laboratory Tests 09/03/16 05:31 Calcium Level 7.8 L, Red Blood Count 4.07 L, Mean Corpuscular Volume 95.0, Mean Corpuscular Hemoglobin 33.0, Mean Corpuscular Hemoglobin Concent 34.8, Red Cell Distribution Width 13.0, Neutrophils (%) (Auto) , Lymphocytes (%) (Auto) , Monocytes (%) (Auto) , Eosinophils (%) (Auto) , Basophils (%) (Auto) , Neutrophils # (Auto) , Lymphocytes # (Auto) , Monocytes # (Auto) , Eosinophils # (Auto) , Basophils # (Auto) Microbiology Microbiology 09/03/16 Blood Culture, Received Pending 08/26/16 Blood Culture - Final, Complete NO GROWTH AFTER 5 DAYS 08/27/16 MRSA Screen - Final, Complete 09/03/16 Urine Culture, Received Pending 08/27/16 Urine Culture - Final, Complete CARLOS JOHNSON MD Sep 03, 2016 10:59
--- NOTE | 2016-09-03 13:33 | REP ---
AP PORTABLE CHEST: 09/03/2016. Comparison: 08/26/2016, 01/19/2016. Clinical history: Cough. Findings: Elevated right diaphragm again seen. There is some atelectatic change adjacent to that diaphragm. The left lung well inflated and clear. There is no pleural effusion or dense consolidation. Heart is enlarged with left atrial and ventricular enlargement but unchanged. The aorta is mildly tortuous and stable in appearance. Airway midline. No pulmonary edema. Impression: 1. Cardiomegaly with elevated right diaphragm and right base atelectatic change above that diaphragm. No dense consolidation, pleural effusion or other acute finding. Signed by Luis Gallagher MD 09/03/2016 07:21 P
[2016-09-03 14:00] VITALS: BP 140/88
[2016-09-03] MEDS: ACETAMINOPHEN TAB 650MG DOSE (2X325MG) PO PRN (16:21)
[2016-09-03] MEDS: PIPERACILLIN/TAZOBACTAM SOD 3.375 GM in D5W MINI-BAG PLUS 50 ML IV SCH ×2 (18:26→23:32)
[2016-09-03] MEDS: PANTOPRAZOLE 40MG INJ (PROTONIX) (C9113) IV SCH (21:47)
[2016-09-03] MEDS: ATORVASTATIN 20 MG TAB PO SCH (21:47)
[2016-09-03 22:00] VITALS: BP 157/78
[2016-09-04] MEDS: PIPERACILLIN/TAZOBACTAM SOD 3.375 GM in D5W MINI-BAG PLUS 50 ML IV SCH ×3 (05:20→17:11)
[2016-09-04] MEDS: METOPROLOL TART 25 MG TABLET PO SCH ×3 (05:20→21:55)
[2016-09-04] MEDS: SLF 3 ML SYR IV SCH ×3 (05:21→21:54)
[2016-09-04 06:00] VITALS: BP 126/86
[2016-09-04 06:10] LABS: BASO % 0.3 % (0.0-1.0); EOS # 0.2 K/mm3 (0.0-0.50); EOS % 1.2 % (0.0-3.0); LARGE UNSTAINED CELL # 0.2 K/mm3 (0.0-0.4); LARGE UNSTAINED CELL % 1.1 % (0.0-4.0); LYMPH # 0.7 K/mm3 (1.5-4.5); LYMPH % 4.1 % (24.0-44.0); MEAN CORPUSCULAR HEMOGLOBIN 32.5 pg (27.0-33.0); MEAN CORPUSCULAR HGB CONC 34.1 g/dl (32.0-36.5); MEAN CORPUSCULAR VOLUME 95.4 fl (80.0-96.0); MONO # 0.6 K/mm3 (0.0-0.8); MONO % 3.9 % (0.0-5.0); NEUTROPHILS # 14.5 K/mm3 (1.8-7.7); NEUTROPHILS % 89.4 % (36.0-66.0); PLATELET COUNT, AUTOMATED 136 k/mm3 (150-450); RED CELL DISTRIBUTION WIDTH 12.7 % (11.5-14.5); WHITE BLOOD COUNT 16.2 K/mm3 (4.0-10.0)
[2016-09-04 06:19] LABS: ANION GAP 8 MEQ/L (8-16); BLOOD UREA NITROGEN 23 MG/DL (7-18); CALCIUM LEVEL 7.5 MG/DL (8.8-10.2); CARBON DIOXIDE LEVEL 29 MEQ/L (21-32); CHLORIDE LEVEL 103 MEQ/L (98-107); CREATININE FOR GFR 1.07 MG/DL (0.70-1.30); GLOMERULAR FILTRATION RATE > 60.0 (>49); GLUCOSE, FASTING 133 MG/DL (80-110); SODIUM LEVEL 140 MEQ/L (136-145)
--- NOTE | 2016-09-04 06:25 | REP ---
MRI BRAIN WITHOUT CONTRAST: 09/03/2016. Comparison: CT brain 09/03/2016, 08/26/2016, MRI brain 08/26/2016. Clinical history: Decreased alertness, question new stroke or worsening of old stroke. Technique: Sagittal T1 with axial T1, T2, FLAIR, gradient echo, diffusion-weighted images and ADC mapping sequences. Findings: The large right basal ganglia infarct on the previous study is again seen. It currently has a maximal diameter of 2.8 cm, on the previous study maximum diameter at this same level was also 2.8 cm transverse but it is now increased in size in the anterior posterior direction up to 3 cm, previously 2.7 cm. It has more partial effacement of the frontal horn of the right lateral ventricle. There is a few millimeters of midline shift. Lateral ventricles are slightly larger than on the previous study. It is hyperintense on diffusion weighted images and hypointense on the ADC mapping sequence indicating restricted water diffusion. Overall findings suggest progression of acute infarct. In addition on those diffusion images, there are bilateral paramedian frontal lobe infarcts which are increased in size and confluence compared to the previous study. This too is progression of the original infarct appearance on study 8 days ago. I do not see hyperintense T1 signal or abnormality on the brain CT this a.m. that would suggest interval hemorrhage. There are chronic small vessel white matter ischemic changes of aging in the basal ganglia elsewhere and throughout the white matter tracts as on the prior study. I do not see other vascular territory infarct, mass, mass effect or edema. The brainstem is intact. Cerebellum shows atrophy but no mass or restricted water diffusion. Basal cisterns intact. Tortuous ectatic basilar artery noted. Corpus callosum, optic chiasm and pituitary unchanged. No cerebellar tonsillar ectopia. Some minor anterior ethmoid sinus mucosal disease with the sinuses clear. Seventh/eighth cranial nerve complexes and mastoids intact. Impression: 1. Multiple bilateral acute infarctions in the high right and left frontal lobes medially and in the right basal ganglia, the largest focus. All of these are progressive in size or confluence compared to previous study without accompanying evidence for hemorrhage. 2. Chronic small vessel ischemic change of aging. 3. Mild midline shift with slightly larger lateral ventricles but no third or fourth ventricular dilatation or hydrocephalus. Signed by Luis Gallagher MD 09/04/2016 09:12 A
[2016-09-04] MEDS: ASPIRIN 325 MG TAB PO SCH (08:19)
[2016-09-04] MEDS: PHENYTOIN ER 100 MG CAP PO SCH ×3 (08:19→21:55)
[2016-09-04] MEDS: KCL 40MEQ in NS 1000ML 1,000 ML IV SCH (08:20)
[2016-09-04] MEDS: LOSARTAN 50 MG TAB PO SCH (08:20)
[2016-09-04] MEDS: VANCOMYCIN HCL 1,000 MG, VIAL MATE ADAPTER 1 EACH in D5W 250 ML IV SCH ×2 (10:12→22:36)
[2016-09-04] MEDS ORDERED: ACETAMINOPHEN 650 MG SUPP PR ONE (11:00)
--- NOTE | 2016-09-04 12:42 | PHACANCOPD ---
PHARMACY VANCOMYCIN DOSING Pt Demographics Demographics Patient Age:66 , Weight:120.700 , Gender: male Adjusted Body Weight Date: 09/04/16, Adjusted Body Weight: [94.84] Kg Events Past 24 Hours Events Past 24 Hours: YES: Elevation in WBC, Fever Vancomycin Vancomycin indication: Fever without source Vancomycin Target Ranges: 10-20 mcg/ml Vancomycin Load Y/N: No Load Dose Date Time Vancomycin Load Dose: Date: Time: Vancomycin Dose Date: 09/04/16. Current Vancomycin Dose: [1g IV Q12H] Intermittent Dosing?: No Labs Labs Item Value Date Time White Blood Count 16.2 K/mm3 H 09/04/16 0528 White Blood Count 21.6 K/mm3 H 09/03/16 0531 White Blood Count 13.4 K/mm3 H 09/02/16 0453 Neutrophils 89 % H 09/03/16 0531 Lactic Acid (Sepsis) 2.3 MMOL/L *H 09/03/16 0819 Creatinine 1.07 MG/DL 09/04/16527 Creatinine 1.16 MG/DL 09/03/16 0531 Creatinine 0.94 MG/DL 09/02/16 0453 Micro Microbiology 09/03/16 Blood Culture - Preliminary, Resulted No growth after 24 hours . All specim... 08/26/16 Blood Culture - Final, Complete NO GROWTH AFTER 5 DAYS 08/27/16 MRSA Screen - Final, Complete 09/03/16 Urine Culture, Received Pending 08/27/16 Urine Culture - Final, Complete Creatinine Clearance Date:09/04/16. Estimated Creatinine Clearance: [75.5ml/min]. Pending Labs Vancomycin trough scheduled 09/06/16 @1000 Assessment and Plan Maintaining Current Dose?: Yes Reason for dose change: No Dose Change Pharmacist Note Pharmacist Note Date: 09/04/16. Pharmacist note: Day #1 vancomycin therapy initiated at 1g IV Q12H for the treatment of fever without source - aiming for a goal trough of 10- 20 mcg/ml. WBC is currently elevated, patient has been febrile within the past 24 hours, and lactate level was elevated. No PMH of MRSA or vanco use here at [facility]. Repeat urine culture is pending, but previous blood cultures and MRSA screen were negative. A trough has been scheduled 09/06/16 @1000, prior to the 5th dose. We will continue to monitor and make adjustments as needed. RICKI [facility]ORRES [facility] Sep 04, 2016 12:42
[2016-09-04 14:00] VITALS: BP 128/79
[2016-09-04] MEDS: ATORVASTATIN 20 MG TAB PO SCH (21:54)
[2016-09-04] MEDS: PANTOPRAZOLE 40MG INJ (PROTONIX) (C9113) IV SCH (21:55)
[2016-09-04 22:00] VITALS: BP 142/92
[2016-09-04] MEDS ORDERED: ACETAMINOPHEN 650 MG SUPP PR SCH (22:00)
[2016-09-04] MEDS ORDERED: ACETAMINOPHEN 650 MG SUPP PR PRN (22:00)
--- NOTE | 2016-09-04 23:57 | IPNPDOC ---
Subjective General Date Seen The patient was seen on 09/04/16. Subjective Chief Complaint/HPI The patient is a 66-year-old male admitted with a reason for visit of Acute Metabolic Encephalopathy. Pt had no events overnight, RN reported pt was talking yesterday. This AM at 0730, pt began shaking and manual BP was recorded at 208/102. This resolved after administration of antihypertensive. Pt seen at beside today and is currently unable to respond to questions. ROS unobtainable. General: Reports: ROS Unobtainable Objective Physical Examination General Exam: Positive: Other (open eyes, but not communicating today, not following commands, tremors. ) Eye Exam: Positive: Conjunctiva & lids normal, PERRLA ENT Exam: Positive: Mucous membr. moist/pink Neck Exam: Positive: Supple Chest Exam: Positive: Wheezing Heart Exam: Positive: Other (occasional extra beat), Regular Rhythm, Tachycardic Abdomen Exam: Positive: Normal bowel sounds, Soft Extremity Exam: Positive: Normal pulses, Negative: Clubbing, Cyanosis, Edema Skin Exam: Positive: Nl turgor and temperature Neuro Exam: Positive: Other (no facial droop, unable to assess manager paid strength b/ c pt unable to follow commands) Assessment /Plan Problems Problems: (1) Decreased alertness Status: Acute Problem Text: Pt was unable to respond verbally and generally unresponsive to commands. Pt had noncontrast CT of head 09/03/16 which showed an increased hypodensity over previous stroke area with potential expansion and increased involvement of basal ganglia. Pt's WBC is trending down, u/a shows 1+ Leukocyte esterase, u/c and b/c are pending. Suspect infection vs new/worsening stroke. Plan to recheck lactate, continue IV fluids, continue pt on oral htn medications , check neuro signs Q4 (2) Acute ischemic stroke Status: Acute Problem Text: in the region of bilateral Anterior cerebral arteries which do show complete blockage in MRA also in the right MCA artery distribution . infarction embolic event is suspected EDGAR negative will continue with ASA. (3) HTN (hypertension) Status: Acute Response to Treatment: Stable, Improving Problem Text: Shakiness improved after administration of antihypertensive. (4) Seizure disorder Status: Chronic Problem Text: * pt is normally on phenytoin but level was subtherapeutic at 4.7 * received a bolus 2/4 * now on 100 TID (5) Hypokalemia Status: Resolved Problem Text: K levels now normal (6) Leukocytosis Status: Acute Response to Treatment: Worse Problem Text: WBC is trending down, pt was afebrile overnight, u/a showed some WBC and 1+ LE. b/c and u/c are pending. Plan to follow daily CBC, pt is currently on Vancomycin and meropenem, will descalate abx after results of b/c. (7) ROCAEL (acute kidney injury) Status: Resolved Problem Text: was likely due to rhabdo, pt was on the floor for an unknown period of time (8) Rhabdomyolysis Status: Resolved Plan/VTE VTE Prophylaxis Ordered?: Yes Plan/Urinary Catheter Reason for insertion/continuin: Critical Pt monitoring VS, I&O, 24H, Fishbone Vital Signs/I&O Vital Signs Date Time Temp Pulse Resp B/P Pulse Ox O2 Delivery O2 Flow Rate FiO2 09/04/16 06:00 99.3 80 19 126/86 93 09/03/16 22:00 Room Air 09/02/16 10:00 1.0 I&O- Last 24 Hours up to 6 AM 09/04/16 06:00 Intake Total 3335 ml Output Total 0 ml Balance 3335 ml Laboratory Data 24H LABS Laboratory Tests 2 09/03/16 08:36: Arterial Blood pH 7.534H, Arterial Blood Partial Pressure CO2 30.7L, Arterial Blood Partial Pressure O2 77.8, Arterial Blood Total CO2 26.3, Arterial Blood HCO3 25.3, Arterial Blood Base Excess 3.4H, Arterial Blood Oxygen Saturation 96.4, Blood Gas Bicarbonate Standard 27.5H 09/03/16 09:43: Urine Amorphous Sediment , Urine Appearance HAZY, Urine Color YELLOW, Urine pH 5.0, Urine Specific Mathews 1.014, Urine Protein NEGATIVE, Urine Glucose (UA) NEGATIVE, Urine Ketones NEGATIVE, Urine Urobilinogen 0.2, Urine Bilirubin NEGATIVE, Urine Leukocyte Esterase 1+H, Urine Bacteria (Auto) 3+H, Urine Blood 1 +H, Urine Calcium Carbonate Cryst(Auto) , Urine Calcium Oxalate Cryst (Auto) , Urine Calcium Phosphate Cassidy (Auto) , Urine Cellular Casts , Urine Cystine Crystals , Urine Granular Casts (Auto) , Urine Hyaline Casts (Auto) 0, Urine Leucine Crystals , Urine Mucus (Auto) SMALL, Urine Nitrite NEGATIVE, Urine Oval Fat Bodies (Auto) , Urine RBC (Auto) 1, Urine Renal Epithelial Cells , Urine Sperm (Auto) , Urine Squamous Epithelial Cells 0, Urine Transitional Epithelial Cells , Urine Trichomonas (Auto) , Urine Triple Phosphate Cryst (Auto) , Urine Tyrosine Crystals , Urine Uric Acid Crystals (Auto) , Urine WBC (Auto) 5H, Urine Waxy Casts (Auto) , Urine Yeast-Like Cells (Auto) 09/03/16 12:36: Lactic Acid Level 1.5 09/04/16 05:28: Anion Gap 8, White Blood Count 16.2H, Red Blood Count 3.98L, Hemoglobin 12.9L, Hematocrit 38.0L, Mean Corpuscular Volume 95.4, Mean Corpuscular Hemoglobin 32.5 , Mean Corpuscular Hemoglobin Concent 34.1, Red Cell Distribution Width 12.7, Platelet Count 136L, Neutrophils (%) (Auto) 89.4H, Lymphocytes (%) (Auto) 4.1L, Monocytes (%) (Auto) 3.9, Eosinophils (%) (Auto) 1.2, Basophils (%) (Auto) 0.3, Neutrophils # (Auto) 14.5H, Lymphocytes # (Auto) 0.7L, Monocytes # (Auto) 0.6, Eosinophils # (Auto) 0.2, Basophils # (Auto) 0.0, Blood Urea Nitrogen 23H, Creatinine 1.07, Sodium Level 140, Potassium Level 4.0#, Chloride Level 103, Carbon Dioxide Level 29, Calcium Level 7.5L, Glomerular Filtration Rate > 60.0, Large Unclassified Cells # 0.2, Large Unclassified Cells % 1.1 CBC/BMP Laboratory Tests 09/04/16 05:28 Calcium Level 7.5 L, Red Blood Count 3.98 L, Mean Corpuscular Volume 95.4, Mean Corpuscular Hemoglobin 32.5, Mean Corpuscular Hemoglobin Concent 34.1, Red Cell Distribution Width 12.7, Neutrophils (%) (Auto) 89.4 H, Lymphocytes (%) (Auto) 4.1 L, Monocytes (%) (Auto) 3.9, Eosinophils (%) (Auto) 1.2, Basophils (%) (Auto ) 0.3, Neutrophils # (Auto) 14.5 H, Lymphocytes # (Auto) 0.7 L, Monocytes # ( Auto) 0.6, Eosinophils # (Auto) 0.2, Basophils # (Auto) 0.0 Microbiology Microbiology 09/03/16 Blood Culture, Received Pending 08/26/16 Blood Culture - Final, Complete NO GROWTH AFTER 5 DAYS 08/27/16 MRSA Screen - Final, Complete 09/03/16 Urine Culture, Received Pending 08/27/16 Urine Culture - Final, Complete AGUSTIN MONTERROSO DO Sep 04, 2016 08:47
[2016-09-05] MEDS: PIPERACILLIN/TAZOBACTAM SOD 3.375 GM in D5W MINI-BAG PLUS 50 ML IV SCH ×4 (00:17→17:11)
[2016-09-05 02:00] VITALS: BP 135/80
[2016-09-05 06:00] VITALS: BP 152/85
[2016-09-05] MEDS: SLF 3 ML SYR IV SCH ×3 (06:00→21:09)
[2016-09-05] MEDS: METOPROLOL TART 25 MG TABLET PO SCH ×3 (06:17→21:16)
[2016-09-05 06:21] LABS: BASO % 0.2 % (0.0-1.0); EOS # 0.3 K/mm3 (0.0-0.50); EOS % 2.6 % (0.0-3.0); LARGE UNSTAINED CELL # 0.2 K/mm3 (0.0-0.4); LARGE UNSTAINED CELL % 1.2 % (0.0-4.0); LYMPH # 0.9 K/mm3 (1.5-4.5); LYMPH % 5.6 % (24.0-44.0); MEAN CORPUSCULAR HEMOGLOBIN 33.1 pg (27.0-33.0); MEAN CORPUSCULAR HGB CONC 33.9 g/dl (32.0-36.5); MEAN CORPUSCULAR VOLUME 97.6 fl (80.0-96.0); MONO # 0.6 K/mm3 (0.0-0.8); MONO % 4.9 % (0.0-5.0); NEUTROPHILS # 10.9 K/mm3 (1.8-7.7); NEUTROPHILS % 85.5 % (36.0-66.0); PLATELET COUNT, AUTOMATED 145 k/mm3 (150-450); RED CELL DISTRIBUTION WIDTH 13.2 % (11.5-14.5); WHITE BLOOD COUNT 12.7 K/mm3 (4.0-10.0)
[2016-09-05 07:02] LABS: ANION GAP 8 MEQ/L (8-16); BLOOD UREA NITROGEN 18 MG/DL (7-18); CALCIUM LEVEL 7.6 MG/DL (8.8-10.2); CARBON DIOXIDE LEVEL 28 MEQ/L (21-32); CHLORIDE LEVEL 106 MEQ/L (98-107); CREATININE FOR GFR 0.82 MG/DL (0.70-1.30); GLOMERULAR FILTRATION RATE > 60.0 (>49); GLUCOSE, FASTING 115 MG/DL (80-110); POTASSIUM SERUM 3.7 MEQ/L (3.5-5.1); SODIUM LEVEL 142 MEQ/L (136-145)
[2016-09-05] MEDS: PHENYTOIN ER 100 MG CAP PO SCH ×3 (09:23→21:16)
[2016-09-05] MEDS: ASPIRIN 325 MG TAB PO SCH (09:23)
[2016-09-05] MEDS: LOSARTAN 50 MG TAB PO SCH (09:23)
[2016-09-05] MEDS: VANCOMYCIN HCL 1,000 MG, VIAL MATE ADAPTER 1 EACH in D5W 250 ML IV SCH ×2 (11:11→23:04)
[2016-09-05] MEDS: KCL 40MEQ in NS 1000ML 1,000 ML IV SCH ×2 (11:55)
[2016-09-05] MEDS: PANTOPRAZOLE 40MG INJ (PROTONIX) (C9113) IV SCH (21:15)
[2016-09-05] MEDS: ATORVASTATIN 20 MG TAB PO SCH (21:16)
[2016-09-05 22:00] VITALS: BP 144/82
--- NOTE | 2016-09-06 00:04 | IPNPDOC ---
Subjective General Date Seen The patient was seen on 09/05/16. Subjective Chief Complaint/HPI The patient is a 66-year-old male admitted with a reason for visit of Acute Metabolic Encephalopathy. Events since last encounter Pt was seen at bedside today. No events overnight. Pt is responding appropriately to questions today and reports having some neck pain and h/a. Pt has weakness in LUE and LLE but denies any pain, numbness, or tingling in either extremity. Pt denies dysuria, fever, chills, abdominal pain, n/v/d, dyspnea, or chest pain. General: Reports: Normal Appetite, Denies: Chills, Fatigue, Malaise, Night Sweats Constitutional: Reports: Weakness Eyes: Denies: Pain, Vision change ENT: Reports: Head Aches, Denies: Dysphagia, Ear Pain Skin: Denies: Lesions, Rash Pulmonary: Denies: Cough, Dyspnea Cardiovascular: Denies: Chest Pain, Orthopnea, Palpitations Gastrointestinal: Denies: Abdominal Pain, Nausea, Vomiting Genitourinary: Denies: Dysuria Musculoskeletal: Reports: Back Pain, Neck Pain (positional) Objective Physical Examination General Exam: Positive: Alert, Cooperative, No Acute Distress, Other (open eyes , but not communicating today, not following commands, tremors. ) Eye Exam: Positive: Conjunctiva & lids normal, PERRLA, Negative: Sclera icteric ENT Exam: Positive: Atraumatic, Mucous membr. 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 LUE 3+MS ) Psych Exam: Positive: Mental status NL, Mood NL, Oriented x 3 Assessment /Plan Problems Problems: (1) Decreased alertness Status: Resolved Problem Text: Pt is responding appropriately today. Pt denies any constitutional symptoms or dysuria. Pt's WBC are trending down and pt has been afebrile over the last 24h. Will continue IV fluids and CBC, Chemistries. (2) Acute ischemic stroke Status: Acute Problem Text: Pt has weakness in LUE and LLE and numbness over plantar surface of his left foot. Will continue PT. (3) HTN (hypertension) Status: Acute Response to Treatment: Stable, Improving Problem Text: Continue pt on current BP meds with respect to the parameters (4) Seizure disorder Status: Chronic Problem Text: * pt is normally on phenytoin but level was subtherapeutic at 4.7 * received a bolus 2/4 * now on 100 TID (5) Hypokalemia Status: Resolved Problem Text: K levels now normal (6) Leukocytosis Status: Acute Response to Treatment: Worse Problem Text: WBC is trending down, pt was afebrile overnight, u/a showed some WBC and 1+ LE. b/c and u/c are pending. Plan to follow daily CBC, pt is currently on Vancomycin and meropenem, will descalate abx after results of b/c. (7) ROCAEL (acute kidney injury) Status: Resolved Problem Text: was likely due to rhabdo, pt was on the floor for an unknown period of time (8) Rhabdomyolysis Status: Resolved Plan/VTE VTE Prophylaxis Ordered?: Yes Plan/Urinary Catheter Reason for insertion/continuin: Critical Pt monitoring Plan IVF: Continue Diet: Continue Current Activity: Continue Current Therapy: PT, OT VS, I&O, 24H, Fishbone Vital Signs/I&O Vital Signs Date Time Temp Pulse Resp B/P Pulse Ox O2 Delivery O2 Flow Rate FiO2 09/05/16 09:23 152/85 09/05/16 06:17 74 09/05/16 06:00 97.6 20 93 Room Air 09/02/16 10:00 1.0 I&O- Last 24 Hours up to 6 AM 09/05/16 06:00 Intake Total 4470 ml Balance 4470 ml Laboratory Data 24H LABS Laboratory Tests 2 09/05/16 05:19: Anion Gap 8, White Blood Count 12.7H, Red Blood Count 3.67L, Hemoglobin 12.2L, Hematocrit 35.8L, Mean Corpuscular Volume 97.6H, Mean Corpuscular Hemoglobin 33.1H, Mean Corpuscular Hemoglobin Concent 33.9, Red Cell Distribution Width 13.2, Platelet Count 145L, Neutrophils (%) (Auto) 85.5H, Lymphocytes (%) (Auto) 5.6L, Monocytes (%) (Auto) 4.9, Eosinophils (%) (Auto) 2.6, Basophils (%) (Auto ) 0.2, Neutrophils # (Auto) 10.9H, Lymphocytes # (Auto) 0.9L, Monocytes # (Auto ) 0.6, Eosinophils # (Auto) 0.3, Basophils # (Auto) 0.0, Blood Urea Nitrogen 18 , Creatinine 0.82, Sodium Level 142, Potassium Level 3.7, Chloride Level 106, Carbon Dioxide Level 28, Calcium Level 7.6L, Glomerular Filtration Rate > 60.0, Large Unclassified Cells # 0.2, Large Unclassified Cells % 1.2 CBC/BMP Laboratory Tests 09/05/16 05:19 Calcium Level 7.6 L, Red Blood Count 3.67 L, Mean Corpuscular Volume 97.6 H, Mean Corpuscular Hemoglobin 33.1 H, Mean Corpuscular Hemoglobin Concent 33.9, Red Cell Distribution Width 13.2, Neutrophils (%) (Auto) 85.5 H, Lymphocytes (% ) (Auto) 5.6 L, Monocytes (%) (Auto) 4.9, Eosinophils (%) (Auto) 2.6, Basophils (%) (Auto) 0.2, Neutrophils # (Auto) 10.9 H, Lymphocytes # (Auto) 0.9 L, Monocytes # (Auto) 0.6, Eosinophils # (Auto) 0.3, Basophils # (Auto) 0.0 Microbiology Microbiology 09/03/16 Blood Culture - Preliminary, Resulted No Growth after 48 hours. All Specime... 08/26/16 Blood Culture - Final, Complete NO GROWTH AFTER 5 DAYS 09/05/16 Influenza Virus Type A Antigen, Received Pending 09/05/16 Influenza Virus Type B Antigen, Received Pending 09/05/16 Respiratory Virus Panel (PCR) ([facility]), Received Pending 08/27/16 MRSA Screen - Final, Complete 09/03/16 Urine Culture - Final, Complete Klebsiella Pneumoniae 08/27/16 Urine Culture - Final, Complete AGUSTIN MONTERROSO DO Sep 05, 2016 10:14
[2016-09-06] MEDS: PIPERACILLIN/TAZOBACTAM SOD 3.375 GM in D5W MINI-BAG PLUS 50 ML IV SCH ×3 (00:44→13:02)
[2016-09-06] MEDS: SLF 3 ML SYR IV SCH ×3 (05:58→21:39)
[2016-09-06 06:00] VITALS: BP 148/83
[2016-09-06 06:14] LABS: ANION GAP 8 MEQ/L (8-16); BASO % 0.3 % (0.0-1.0); BLOOD UREA NITROGEN 14 MG/DL (7-18); CARBON DIOXIDE LEVEL 27 MEQ/L (21-32); CHLORIDE LEVEL 105 MEQ/L (98-107); CREATININE FOR GFR 0.85 MG/DL (0.70-1.30); EOS # 0.4 K/mm3 (0.0-0.50); EOS % 3.4 % (0.0-3.0); GLOMERULAR FILTRATION RATE > 60.0 (>49); GLUCOSE, FASTING 124 MG/DL (80-110); LARGE UNSTAINED CELL # 0.3 K/mm3 (0.0-0.4); LARGE UNSTAINED CELL % 2.3 % (0.0-4.0); LYMPH # 1.2 K/mm3 (1.5-4.5); LYMPH % 10.7 % (24.0-44.0); MEAN CORPUSCULAR HEMOGLOBIN 33.3 pg (27.0-33.0); MEAN CORPUSCULAR HGB CONC 35.6 g/dl (32.0-36.5); MEAN CORPUSCULAR VOLUME 93.5 fl (80.0-96.0); MONO # 0.5 K/mm3 (0.0-0.8); MONO % 4.8 % (0.0-5.0); NEUTROPHILS # 8.6 K/mm3 (1.8-7.7); NEUTROPHILS % 78.6 % (36.0-66.0); PLATELET COUNT, AUTOMATED 177 k/mm3 (150-450); POTASSIUM SERUM 3.8 MEQ/L (3.5-5.1); RED CELL DISTRIBUTION WIDTH 12.8 % (11.5-14.5); SODIUM LEVEL 140 MEQ/L (136-145)
[2016-09-06] MEDS: METOPROLOL TART 25 MG TABLET PO SCH ×3 (06:36→21:13)
[2016-09-06] MEDS: KCL 40MEQ in NS 1000ML 1,000 ML IV SCH ×3 (06:36→23:10)
[2016-09-06 08:30] VITALS: BP 152/92
[2016-09-06] MEDS: ASPIRIN 325 MG TAB PO SCH (09:43)
[2016-09-06] MEDS: PHENYTOIN ER 100 MG CAP PO SCH ×3 (09:44→21:11)
[2016-09-06] MEDS: LOSARTAN 50 MG TAB PO SCH (09:44)
[2016-09-06] MEDS: VANCOMYCIN HCL 1,000 MG, VIAL MATE ADAPTER 1 EACH in D5W 250 ML IV SCH (11:08)
[2016-09-06 14:00] VITALS: BP 158/92
--- NOTE | 2016-09-06 14:44 | IPNPDOC ---
Subjective General Date Seen The patient was seen on 09/06/16. Subjective Chief Complaint/HPI The patient is a 66-year-old male admitted with a reason for visit of Acute Metabolic Encephalopathy. Events since last encounter pt seen and examined, not wanting to answer questions today Objective Physical Examination General Exam: Positive: Alert, No Acute Distress, Other (open eyes, but not communicating today, not following commands, tremors. ) Eye Exam: Positive: Conjunctiva & lids normal, PERRLA, Negative: Sclera icteric ENT Exam: Positive: Atraumatic, Mucous membr. 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 LUE 3+MS ) Psych Exam: Positive: Mental status NL, Mood NL, Oriented x 3 Assessment /Plan Problems Problems: (1) Decreased alertness Status: Resolved Problem Text: Pt is responding appropriately today, but doesn't want to answer questions (2) Acute ischemic stroke Status: Acute Problem Text: Pt has weakness in LUE and LLE and numbness over plantar surface of his left foot. Will continue PT. will likely need intermediate placement since pt lives alone I had a discussion with his health care proxy on 09/05 and they agreed to placement (3) HTN (hypertension) Status: Acute Response to Treatment: Stable, Improving Problem Text: Continue pt on current BP meds with respect to the parameters (4) Seizure disorder Status: Chronic Problem Text: * Dilantin level is still low * will increase daily dose to 200 TID (5) Hypokalemia Status: Resolved Problem Text: K levels now normal (6) Leukocytosis Status: Acute Response to Treatment: Improving Problem Text: improving secondary to UTI will start Levaquin and d/c IV antibiotics (7) ROCAEL (acute kidney injury) Status: Resolved Problem Text: was likely due to rhabdo, pt was on the floor for an unknown period of time (8) Rhabdomyolysis Status: Resolved Plan/VTE VTE Prophylaxis Ordered?: Yes Plan/Urinary Catheter Reason for insertion/continuin: Critical Pt monitoring Plan IVF: Continue Diet: Continue Current Activity: Continue Current Therapy: PT, OT VS, I&O, 24H, Fishbone Vital Signs/I&O Vital Signs Date Time Temp Pulse Resp B/P Pulse Ox O2 Delivery O2 Flow Rate FiO2 09/06/16 09:44 156/96 09/06/16 09:00 Room Air 09/06/16 08:30 98.1 65 16 97 09/02/16 10:00 1.0 I&O- Last 24 Hours up to 6 AM 09/06/16 06:00 Intake Total 3005 ml Balance 3005 ml Laboratory Data 24H LABS Laboratory Tests 2 09/06/16 05:34: Anion Gap 8, White Blood Count 11.0H, Red Blood Count 3.70L, Hemoglobin 12.3L, Hematocrit 34.6L, Mean Corpuscular Volume 93.5, Mean Corpuscular Hemoglobin 33.3H, Mean Corpuscular Hemoglobin Concent 35.6, Red Cell Distribution Width 12.8, Platelet Count 177, Neutrophils (%) (Auto) 78.6H, Lymphocytes (%) (Auto) 10.7L, Monocytes (%) (Auto) 4.8, Eosinophils (%) (Auto) 3.4H, Basophils (%) ( Auto) 0.3, Neutrophils # (Auto) 8.6H, Lymphocytes # (Auto) 1.2L, Monocytes # ( Auto) 0.5, Eosinophils # (Auto) 0.4, Basophils # (Auto) 0.0, Blood Urea Nitrogen 14, Creatinine 0.85, Sodium Level 140, Potassium Level 3.8, Chloride Level 105, Carbon Dioxide Level 27, Calcium Level 8.0L, Glomerular Filtration Rate > 60.0, Large Unclassified Cells # 0.3, Large Unclassified Cells % 2.3 09/06/16 10:53: Vancomycin Level Trough 10.0 CBC/BMP Laboratory Tests 09/06/16 05:34 Calcium Level 8.0 L, Red Blood Count 3.70 L, Mean Corpuscular Volume 93.5, Mean Corpuscular Hemoglobin 33.3 H, Mean Corpuscular Hemoglobin Concent 35.6, Red Cell Distribution Width 12.8, Neutrophils (%) (Auto) 78.6 H, Lymphocytes (%) ( Auto) 10.7 L, Monocytes (%) (Auto) 4.8, Eosinophils (%) (Auto) 3.4 H, Basophils (%) (Auto) 0.3, Neutrophils # (Auto) 8.6 H, Lymphocytes # (Auto) 1.2 L, Monocytes # (Auto) 0.5, Eosinophils # (Auto) 0.4, Basophils # (Auto) 0.0 Microbiology Microbiology 09/03/16 Blood Culture - Preliminary, Resulted No Growth after 72 hours. All specime... 09/05/16 Respiratory Virus Panel (PCR) ([facility]) - Final, Complete 08/27/16 MRSA Screen - Final, Complete 09/03/16 Urine Culture - Final, Complete Klebsiella Pneumoniae 08/27/16 Urine Culture - Final, Complete VAISHNAVI JOHNSTON DO Sep 06, 2016 14:43
[2016-09-06] MEDS: LevoFLOXacin 250 MG TABLET PO SCH (15:54)
[2016-09-06] MEDS: PANTOPRAZOLE 40MG INJ (PROTONIX) (C9113) IV SCH (21:11)
[2016-09-06] MEDS: ATORVASTATIN 20 MG TAB PO SCH (21:11)
[2016-09-06 22:00] VITALS: BP 155/94
[2016-09-07 06:00] VITALS: BP 145/98
[2016-09-07] MEDS: SLF 3 ML SYR IV SCH ×3 (06:00→21:33)
[2016-09-07] MEDS: LevoFLOXacin 250 MG TABLET PO SCH (06:06)
[2016-09-07] MEDS: METOPROLOL TART 25 MG TABLET PO SCH ×3 (06:06→21:32)
[2016-09-07 06:44] LABS: BASO % 0.3 % (0.0-1.0); EOS # 0.4 K/mm3 (0.0-0.50); EOS % 3.3 % (0.0-3.0); LARGE UNSTAINED CELL # 0.3 K/mm3 (0.0-0.4); LARGE UNSTAINED CELL % 2.4 % (0.0-4.0); LYMPH % 15.5 % (24.0-44.0); MEAN CORPUSCULAR HEMOGLOBIN 33.4 pg (27.0-33.0); MEAN CORPUSCULAR HGB CONC 34.6 g/dl (32.0-36.5); MEAN CORPUSCULAR VOLUME 96.6 fl (80.0-96.0); MONO # 0.6 K/mm3 (0.0-0.8); MONO % 5.3 % (0.0-5.0); NEUTROPHILS # 8.4 K/mm3 (1.8-7.7); NEUTROPHILS % 73.1 % (36.0-66.0); PLATELET COUNT, AUTOMATED 219 k/mm3 (150-450); RED CELL DISTRIBUTION WIDTH 13.2 % (11.5-14.5); WHITE BLOOD COUNT 11.4 K/mm3 (4.0-10.0)
[2016-09-07 07:00] LABS: ANION GAP 8 MEQ/L (8-16); BLOOD UREA NITROGEN 12 MG/DL (7-18); CALCIUM LEVEL 8.3 MG/DL (8.8-10.2); CARBON DIOXIDE LEVEL 28 MEQ/L (21-32); CHLORIDE LEVEL 108 MEQ/L (98-107); CREATININE FOR GFR 0.83 MG/DL (0.70-1.30); GLOMERULAR FILTRATION RATE > 60.0 (>49); GLUCOSE, FASTING 112 MG/DL (80-110); SODIUM LEVEL 144 MEQ/L (136-145)
[2016-09-07] MEDS: ASPIRIN 325 MG TAB PO SCH (09:35)
[2016-09-07] MEDS: PHENYTOIN ER 100 MG CAP PO SCH ×3 (09:36→21:32)
[2016-09-07] MEDS: LOSARTAN 50 MG TAB PO SCH (09:39)
[2016-09-07] MEDS: KCL 40MEQ in NS 1000ML 1,000 ML IV SCH (13:02)
[2016-09-07 14:00] VITALS: BP 178/91
[2016-09-07] MEDS: PANTOPRAZOLE 40MG INJ (PROTONIX) (C9113) IV SCH (21:30)
[2016-09-07] MEDS: ATORVASTATIN 20 MG TAB PO SCH (21:33)
[2016-09-07 22:00] VITALS: BP 159/94
--- NOTE | 2016-09-07 23:41 | IPNPDOC ---
Subjective Date Seen The patient was seen on 09/07/16. Subjective Chief Complaint/HPI The patient is a 66-year-old male admitted with a reason for visit of Acute Metabolic Encephalopathy. Events since last encounter Pt was seen at bedside today. Pt reports no events overnight. Pt denies any pain outside of msk pain. Musculoskeletal: Reports: Back Pain, Neck Pain Objective Physical Examination General Exam: Positive: Alert, No Acute Distress, Other (open eyes, but not communicating today, not following commands, tremors. ) Eye Exam: Positive: Conjunctiva & lids normal, PERRLA, Negative: Sclera icteric ENT Exam: Positive: Atraumatic, Mucous membr. 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 LUE 3+MS ) Psych Exam: Positive: Mental status NL, Mood NL, Oriented x 3 Assessment /Plan Problems (1) Decreased alertness Status: Resolved Problem Text: Pt is responding appropriately today, reports he only has pain neck and back pain likely 2/2 prolonged bedrest (2) Acute ischemic stroke Status: Acute Problem Text: Pt has weakness in LUE and LLE and numbness over plantar surface of his left foot. Will continue PT. 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 placement since pt lives alone I had a discussion with his health care proxy on 09/05 and they agreed to placement (3) HTN (hypertension) Status: Acute Response to Treatment: Stable, Improving Problem Text: Continue pt on current BP meds with respect to the parameters (4) Seizure disorder Status: Chronic Problem Text: * Dilantin level is still low * will increase daily dose to 200 TID (5) Hypokalemia Status: Resolved Problem Text: K levels now normal (6) Leukocytosis Status: Acute Response to Treatment: Improving Problem Text: improving secondary to UTI will start Levaquin and d/c IV antibiotics (7) ROCAEL (acute kidney injury) Status: Resolved Problem Text: was likely due to rhabdo, pt was on the floor for an unknown period of time (8) Rhabdomyolysis Status: Resolved Plan/VTE VTE Prophylaxis Ordered?: Yes Plan/Urinary Catheter Reason for insertion/continuin: Critical Pt monitoring Plan IVF: Continue Diet: Continue Current Activity: Continue Current Therapy: PT, OT VS, I&O, 24H, Fishbone Vital Signs/I&O Vital Signs Date Time Temp Pulse Resp B/P Pulse Ox O2 Delivery O2 Flow Rate FiO2 09/07/16 06:06 71 145/98 09/07/16 06:00 96.7 19 98 Room Air 09/02/16 10:00 1.0 I&O- Last 24 Hours up to 6 AM 09/07/16 06:00 Intake Total 2157.5 ml Balance 2157.5 ml Laboratory Data 24H LABS Laboratory Tests 2 09/06/16 10:53: Vancomycin Level Trough 10.0 09/07/16 06:04: Anion Gap 8, White Blood Count 11.4H, Red Blood Count 3.73L, Hemoglobin 12.5L, Hematocrit 36.0L, Mean Corpuscular Volume 96.6H, Mean Corpuscular Hemoglobin 33.4H, Mean Corpuscular Hemoglobin Concent 34.6, Red Cell Distribution Width 13.2, Platelet Count 219, Neutrophils (%) (Auto) 73.1H, Lymphocytes (%) (Auto) 15.5L, Monocytes (%) (Auto) 5.3H, Eosinophils (%) (Auto) 3.3H, Basophils (%) ( Auto) 0.3, Neutrophils # (Auto) 8.4H, Lymphocytes # (Auto) 2.0, Monocytes # ( Auto) 0.6, Eosinophils # (Auto) 0.4, Basophils # (Auto) 0.0, Blood Urea Nitrogen 12, Creatinine 0.83, Sodium Level 144, Potassium Level 4.0, Chloride Level 108H, Carbon Dioxide Level 28, Calcium Level 8.3L, Glomerular Filtration Rate > 60.0, Large Unclassified Cells # 0.3, Large Unclassified Cells % 2.4 CBC/BMP Laboratory Tests 09/07/16 06:04 Calcium Level 8.3 L, Red Blood Count 3.73 L, Mean Corpuscular Volume 96.6 H, Mean Corpuscular Hemoglobin 33.4 H, Mean Corpuscular Hemoglobin Concent 34.6, Red Cell Distribution Width 13.2, Neutrophils (%) (Auto) 73.1 H, Lymphocytes (% ) (Auto) 15.5 L, Monocytes (%) (Auto) 5.3 H, Eosinophils (%) (Auto) 3.3 H, Basophils (%) (Auto) 0.3, Neutrophils # (Auto) 8.4 H, Lymphocytes # (Auto) 2.0, Monocytes # (Auto) 0.6, Eosinophils # (Auto) 0.4, Basophils # (Auto) 0.0 Microbiology Microbiology 09/03/16 Blood Culture - Preliminary, Resulted No Growth after 72 hours. All specime... 09/05/16 Respiratory Virus Panel (PCR) ([facility]) - Final, Complete 09/03/16 Urine Culture - Final, Complete Klebsiella Pneumoniae AGUSTIN MONTERROSO DO Sep 07, 2016 09:31
[2016-09-08] MEDS: LevoFLOXacin 250 MG TABLET PO SCH (05:51)
[2016-09-08 06:00] VITALS: BP 186/108
[2016-09-08] MEDS: SLF 3 ML SYR IV SCH ×3 (06:00→22:00)
[2016-09-08] MEDS: METOPROLOL TART 25 MG TABLET PO SCH ×3 (06:00→22:15)
[2016-09-08 06:25] LABS: BASO # 0.1 K/mm3 (0.0-0.2); BASO % 0.4 % (0.0-1.0); EOS # 0.3 K/mm3 (0.0-0.50); EOS % 2.3 % (0.0-3.0); LARGE UNSTAINED CELL # 0.4 K/mm3 (0.0-0.4); LARGE UNSTAINED CELL % 2.5 % (0.0-4.0); LYMPH % 13.6 % (24.0-44.0); MEAN CORPUSCULAR HEMOGLOBIN 32.4 pg (27.0-33.0); MEAN CORPUSCULAR HGB CONC 34.3 g/dl (32.0-36.5); MEAN CORPUSCULAR VOLUME 94.5 fl (80.0-96.0); MONO # 0.8 K/mm3 (0.0-0.8); MONO % 5.4 % (0.0-5.0); NEUTROPHILS # 11.1 K/mm3 (1.8-7.7); NEUTROPHILS % 75.9 % (36.0-66.0); PLATELET COUNT, AUTOMATED 234 k/mm3 (150-450); RED CELL DISTRIBUTION WIDTH 12.9 % (11.5-14.5); WHITE BLOOD COUNT 14.6 K/mm3 (4.0-10.0)
[2016-09-08 06:35] LABS: ANION GAP 9 MEQ/L (8-16); BLOOD UREA NITROGEN 15 MG/DL (7-18); CALCIUM LEVEL 8.1 MG/DL (8.8-10.2); CARBON DIOXIDE LEVEL 28 MEQ/L (21-32); CHLORIDE LEVEL 105 MEQ/L (98-107); CREATININE FOR GFR 0.81 MG/DL (0.70-1.30); GLOMERULAR FILTRATION RATE > 60.0 (>49); GLUCOSE, FASTING 108 MG/DL (80-110); POTASSIUM SERUM 4.2 MEQ/L (3.5-5.1); SODIUM LEVEL 142 MEQ/L (136-145)
[2016-09-08 06:50] VITALS: BP 178/100
[2016-09-08] MEDS: KCL 40MEQ in NS 1000ML 1,000 ML IV SCH ×3 (08:00→22:11)
[2016-09-08] MEDS: ASPIRIN 325 MG TAB PO SCH (08:59)
[2016-09-08] MEDS: PHENYTOIN ER 100 MG CAP PO SCH ×3 (08:59→22:11)
[2016-09-08] MEDS: LOSARTAN 50 MG TAB PO SCH (08:59)
[2016-09-08 14:00] VITALS: BP 182/92
--- NOTE | 2016-09-08 16:42 | IPNPDOC ---
Subjective Date Seen The patient was seen on 09/08/16. Subjective Chief Complaint/HPI The patient is a 66-year-old male admitted with a reason for visit of Acute Metabolic Encephalopathy. Events since last encounter No new complaints this morning. Pt had some pain in his neck. Reports weakness. Slept last night. Is eating some of his meals. General: Denies: Chills, Fatigue, Malaise, Night Sweats Constitutional: Denies: Chills, Fever, Night Sweats ENT: Denies: Dysphagia, Ear Pain, Head Aches Skin: Denies: Breakdown, Lesions, Rash Pulmonary: Denies: Cough, Dyspnea Cardiovascular: Denies: Chest Pain, Lt Headedness, Orthopnea, Palpitations, Paroxysmal Noc. Dyspnea Gastrointestinal: Denies: Abdominal Pain, Constipation, Diarrhea, Nausea, Vomiting Musculoskeletal: Reports: Neck Pain (R sided) Neurological: Reports: Weakness (throughout) Objective Physical Examination General Exam: Positive: Alert, No Acute Distress Eye Exam: Positive: Conjunctiva & lids normal, PERRLA, Negative: Sclera icteric ENT Exam: Positive: Atraumatic, Mucous membr. 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 LUE 3+MS ) Psych Exam: Positive: Mental status NL, Mood NL, Oriented x 3 Assessment /Plan Problems (1) Decreased alertness Status: Resolved Problem Text: Appears improved today. Pt is responding appropriately, reports he has pain neck and back pain likely 2/2 prolonged bedrest (2) Acute ischemic stroke Status: Acute Problem Text: Pt has weakness in LUE and LLE and numbness over plantar surface of his left foot. Will continue PT. will likely need [facility] placement since pt lives alone I had a discussion with his health care proxy on 09/05 and they agreed to placement (3) HTN (hypertension) Status: Acute Response to Treatment: Stable, Improving Problem Text: Continue pt on current BP meds with respect to the parameters (4) Seizure disorder Status: Chronic Problem Text: * Dilantin level is still low * will increase daily dose to 200 TID (5) Hypokalemia Status: Resolved Problem Text: K levels now normal (6) Leukocytosis Status: Acute Response to Treatment: Improving Problem Text: improving secondary to UTI will start Levaquin and d/c IV antibiotics (7) ROCAEL (acute kidney injury) Status: Resolved Problem Text: was likely due to rhabdo, pt was on the floor for an unknown period of time (8) Rhabdomyolysis Status: Resolved Plan/VTE VTE Prophylaxis Ordered?: Yes Plan/Urinary Catheter Reason for insertion/continuin: Critical Pt monitoring Plan IVF: Continue Diet: Continue Current Activity: Continue Current Therapy: PT, OT VS, I&O, 24H, Fishbone Vital Signs/I&O Vital Signs Date Time Temp Pulse Resp B/P Pulse Ox O2 Delivery O2 Flow Rate FiO2 09/08/16 16:10 Room Air 09/08/16 14:00 97.0 58 16 182/92 95 09/02/16 10:00 1.0 I&O- Last 24 Hours up to 6 AM 09/08/16 06:00 Intake Total 3000 ml Balance 3000 ml Laboratory Data 24H LABS Laboratory Tests 2 09/08/16 06:02: Anion Gap 9, White Blood Count 14.6H, Red Blood Count 3.75L, Hemoglobin 12.2L, Hematocrit 35.5L, Mean Corpuscular Volume 94.5, Mean Corpuscular Hemoglobin 32.4 , Mean Corpuscular Hemoglobin Concent 34.3, Red Cell Distribution Width 12.9, Platelet Count 234, Neutrophils (%) (Auto) 75.9H, Lymphocytes (%) (Auto) 13.6L, Monocytes (%) (Auto) 5.4H, Eosinophils (%) (Auto) 2.3, Basophils (%) (Auto) 0.4 , Neutrophils # (Auto) 11.1H, Lymphocytes # (Auto) 2.0, Monocytes # (Auto) 0.8, Eosinophils # (Auto) 0.3, Basophils # (Auto) 0.1, Blood Urea Nitrogen 15, Creatinine 0.81, Sodium Level 142, Potassium Level 4.2, Chloride Level 105, Carbon Dioxide Level 28, Calcium Level 8.1L, Glomerular Filtration Rate > 60.0, Large Unclassified Cells # 0.4, Large Unclassified Cells % 2.5 CBC/BMP Laboratory Tests 09/08/16 06:02 Calcium Level 8.1 L, Red Blood Count 3.75 L, Mean Corpuscular Volume 94.5, Mean Corpuscular Hemoglobin 32.4, Mean Corpuscular Hemoglobin Concent 34.3, Red Cell Distribution Width 12.9, Neutrophils (%) (Auto) 75.9 H, Lymphocytes (%) (Auto) 13.6 L, Monocytes (%) (Auto) 5.4 H, Eosinophils (%) (Auto) 2.3, Basophils (%) ( Auto) 0.4, Neutrophils # (Auto) 11.1 H, Lymphocytes # (Auto) 2.0, Monocytes # ( Auto) 0.8, Eosinophils # (Auto) 0.3, Basophils # (Auto) 0.1 Microbiology Microbiology 09/03/16 Blood Culture - Final, Complete NO GROWTH AFTER 5 DAYS 09/05/16 Respiratory Virus Panel (PCR) ([facility]) - Final, Complete 09/03/16 Urine Culture - Final, Complete Klebsiella Pneumoniae AGUSTIN MONTERROSO DO Sep 08, 2016 16:42 AGUSTIN MONTERROSO DO Sep 08, 2016 16:42
[2016-09-08 18:55] VITALS: BP 164/94
[2016-09-08 22:00] VITALS: BP_SYST 147; BP_SYST 154; BP_DIAS 100; BP_DIAS 86
[2016-09-08] MEDS: PANTOPRAZOLE 40MG INJ (PROTONIX) (C9113) IV SCH (22:10)
[2016-09-08] MEDS: ATORVASTATIN 20 MG TAB PO SCH (22:11)
[2016-09-09 05:42] LABS: BASO # 0.1 K/mm3 (0.0-0.2); BASO % 0.5 % (0.0-1.0); EOS # 0.4 K/mm3 (0.0-0.50); EOS % 3.5 % (0.0-3.0); LARGE UNSTAINED CELL # 0.3 K/mm3 (0.0-0.4); LARGE UNSTAINED CELL % 2.3 % (0.0-4.0); LYMPH # 2.5 K/mm3 (1.5-4.5); LYMPH % 17.5 % (24.0-44.0); MEAN CORPUSCULAR HEMOGLOBIN 33.9 pg (27.0-33.0); MEAN CORPUSCULAR VOLUME 96.6 fl (80.0-96.0); MONO # 0.8 K/mm3 (0.0-0.8); MONO % 5.9 % (0.0-5.0); NEUTROPHILS % 70.3 % (36.0-66.0); PLATELET COUNT, AUTOMATED 263 k/mm3 (150-450); RED CELL DISTRIBUTION WIDTH 13.4 % (11.5-14.5); WHITE BLOOD COUNT 12.9 K/mm3 (4.0-10.0)
[2016-09-09 05:43] LABS: ANION GAP 8 MEQ/L (8-16); BLOOD UREA NITROGEN 15 MG/DL (7-18); CALCIUM LEVEL 8.8 MG/DL (8.8-10.2); CARBON DIOXIDE LEVEL 30 MEQ/L (21-32); CHLORIDE LEVEL 106 MEQ/L (98-107); CREATININE FOR GFR 0.86 MG/DL (0.70-1.30); GLOMERULAR FILTRATION RATE > 60.0 (>49); GLUCOSE, FASTING 110 MG/DL (80-110); POTASSIUM SERUM 3.9 MEQ/L (3.5-5.1); SODIUM LEVEL 144 MEQ/L (136-145)
[2016-09-09] MEDS: SLF 3 ML SYR IV SCH ×3 (05:58→21:29)
[2016-09-09 06:00] VITALS: BP 156/94
[2016-09-09] MEDS: LevoFLOXacin 250 MG TABLET PO SCH (06:09)
[2016-09-09] MEDS: METOPROLOL TART 25 MG TABLET PO SCH ×3 (06:09→21:29)
[2016-09-09] MEDS: PHENYTOIN ER 100 MG CAP PO SCH ×3 (08:18→21:30)
[2016-09-09] MEDS: LOSARTAN 50 MG TAB PO SCH (08:18)
[2016-09-09] MEDS: ASPIRIN 325 MG TAB PO SCH (08:18)
--- NOTE | 2016-09-09 13:20 | IPNPDOC ---
Subjective Date Seen The patient was seen on 09/09/16. Subjective Chief Complaint/HPI The patient is a 66-year-old male admitted with a reason for visit of Acute Metabolic Encephalopathy. Events since last encounter pt seen and examined, doing well, Skin: Denies: Breakdown, Lesions, Rash Pulmonary: Denies: Cough, Dyspnea Cardiovascular: Denies: Chest Pain, Lt Headedness, Orthopnea, Palpitations, Paroxysmal Noc. Dyspnea Objective Physical Examination General Exam: Positive: Alert, No Acute Distress Eye Exam: Positive: Conjunctiva & lids normal, PERRLA, Negative: Sclera icteric ENT Exam: Positive: Atraumatic, Mucous membr. moist/pink, Pharynx Normal Neck Exam: Positive: Supple Chest Exam: Positive: Clear to auscultation, Normal air movement Heart Exam: Positive: Other (occasional extra beat), Regular Rhythm, Tachycardic Abdomen Exam: Positive: Normal bowel sounds, Soft Extremity Exam: Positive: Normal pulses, Negative: Clubbing, Cyanosis, Edema Skin Exam: Positive: Nl turgor and temperature Neuro Exam: Positive: Normal Tone, Other (no facial droop, skip tender strength 5+ on right, 4+ on left, LLE 1+ MS. LUE 3+MS ) Psych Exam: Positive: Mental status NL, Mood NL, Oriented x 3 Assessment /Plan Problems (1) Acute ischemic stroke Status: Acute Problem Text: Pt has weakness in LUE and LLE and numbness over plantar surface of his left foot. Will continue PT. will likely need [facility]term[facility] placement since pt lives alone I had a discussion with his health care proxy on 09/05 and they agreed to placement (2) Decreased alertness Status: Resolved Problem Text: Appears improved today. Pt is responding appropriately, reports he has pain neck and back pain likely 2/2 prolonged bedrest (3) HTN (hypertension) Status: Acute Response to Treatment: Stable, Improving Problem Text: Continue pt on current BP meds with respect to the parameters (4) Seizure disorder Status: Chronic Problem Text: * Dilantin level is still low * dilantin dose was increased to 200mg po tid will repeat level (5) Hypokalemia Status: Resolved Problem Text: K levels now normal (6) Leukocytosis Status: Acute Response to Treatment: Improving Problem Text: improving secondary to UTI will start Levaquin and d/c IV antibiotics (7) ROCAEL (acute kidney injury) Status: Resolved Problem Text: was likely due to rhabdo, pt was on the floor for an unknown period of time (8) Rhabdomyolysis Status: Resolved Plan/VTE VTE Prophylaxis Ordered?: Yes Plan/Urinary Catheter Reason for insertion/continuin: Critical Pt monitoring Plan IVF: Continue Diet: Continue Current Activity: Continue Current Therapy: PT, OT VS, I&O, 24H, Fishbone Vital Signs/I&O Vital Signs Date Time Temp Pulse Resp B/P Pulse Ox O2 Delivery O2 Flow Rate FiO2 09/09/16 09:00 Room Air 09/09/16 08:18 156/94 09/09/16 06:09 64 09/09/16 06:00 97.9 17 94 I&O- Last 24 Hours up to 6 AM 09/09/16 06:00 Intake Total 3888 ml Balance 3888 ml Laboratory Data 24H LABS Laboratory Tests 2 09/09/16 05:14: Anion Gap 8, White Blood Count 12.9H, Red Blood Count 3.68L, Hemoglobin 12.5L, Hematocrit 35.6L, Mean Corpuscular Volume 96.6H, Mean Corpuscular Hemoglobin 33.9H, Mean Corpuscular Hemoglobin Concent 35.0, Red Cell Distribution Width 13.4, Platelet Count 263, Neutrophils (%) (Auto) 70.3H, Lymphocytes (%) (Auto) 17.5L, Monocytes (%) (Auto) 5.9H, Eosinophils (%) (Auto) 3.5H, Basophils (%) ( Auto) 0.5, Neutrophils # (Auto) 9.0H, Lymphocytes # (Auto) 2.5, Monocytes # ( Auto) 0.8, Eosinophils # (Auto) 0.4, Basophils # (Auto) 0.1, Blood Urea Nitrogen 15, Creatinine 0.86, Sodium Level 144, Potassium Level 3.9, Chloride Level 106, Carbon Dioxide Level 30, Calcium Level 8.8, Glomerular Filtration Rate > 60.0, Large Unclassified Cells # 0.3, Large Unclassified Cells % 2.3 CBC/BMP Laboratory Tests 09/09/16 05:14 Calcium Level 8.8, Red Blood Count 3.68 L, Mean Corpuscular Volume 96.6 H, Mean Corpuscular Hemoglobin 33.9 H, Mean Corpuscular Hemoglobin Concent 35.0, Red Cell Distribution Width 13.4, Neutrophils (%) (Auto) 70.3 H, Lymphocytes (%) ( Auto) 17.5 L, Monocytes (%) (Auto) 5.9 H, Eosinophils (%) (Auto) 3.5 H, Basophils (%) (Auto) 0.5, Neutrophils # (Auto) 9.0 H, Lymphocytes # (Auto) 2.5, Monocytes # (Auto) 0.8, Eosinophils # (Auto) 0.4, Basophils # (Auto) 0.1 Microbiology Microbiology 09/03/16 Blood Culture - Final, Complete NO GROWTH AFTER 5 DAYS 09/05/16 Respiratory Virus Panel (PCR) ([facility]) - Final, Complete 09/03/16 Urine Culture - Final, Complete Klebsiella Pneumoniae VAISHNAVI JOHNSTON DO Sep 09, 2016 13:20
[2016-09-09 14:00] VITALS: BP 170/98
[2016-09-09] MEDS: KCL 40MEQ in NS 1000ML 1,000 ML IV SCH (21:29)
[2016-09-09] MEDS: ATORVASTATIN 20 MG TAB PO SCH (21:29)
[2016-09-09] MEDS: PANTOPRAZOLE 40MG INJ (PROTONIX) (C9113) IV SCH (21:29)
[2016-09-09 22:00] VITALS: BP 159/96
[2016-09-10 06:00] VITALS: BP 169/91
[2016-09-10] MEDS: SLF 3 ML SYR IV SCH ×2 (06:00→14:00)
[2016-09-10 06:04] LABS: BASO % 0.4 % (0.0-1.0); EOS # 0.5 K/mm3 (0.0-0.50); LARGE UNSTAINED CELL # 0.2 K/mm3 (0.0-0.4); LARGE UNSTAINED CELL % 1.7 % (0.0-4.0); LYMPH # 2.6 K/mm3 (1.5-4.5); LYMPH % 19.5 % (24.0-44.0); MEAN CORPUSCULAR HEMOGLOBIN 33.5 pg (27.0-33.0); MEAN CORPUSCULAR HGB CONC 34.8 g/dl (32.0-36.5); MEAN CORPUSCULAR VOLUME 96.4 fl (80.0-96.0); MONO # 0.8 K/mm3 (0.0-0.8); MONO % 6.3 % (0.0-5.0); NEUTROPHILS # 8.5 K/mm3 (1.8-7.7); NEUTROPHILS % 68.2 % (36.0-66.0); PLATELET COUNT, AUTOMATED 292 k/mm3 (150-450); RED CELL DISTRIBUTION WIDTH 13.6 % (11.5-14.5); WHITE BLOOD COUNT 12.4 K/mm3 (4.0-10.0)
[2016-09-10 06:23] LABS: ALBUMIN 2.5 GM/DL (3.2-5.2); ALBUMIN/GLOBULIN RATIO 0.71 (1.00-1.93); ALKALINE PHOSPHATASE 89 U/L (45-117); ALT/SGPT 90 U/L (12-78); ANION GAP 7 MEQ/L (8-16); AST/SGOT 43 U/L (15-37); BILIRUBIN,TOTAL 0.3 MG/DL (0.2-1.0); BLOOD UREA NITROGEN 15 MG/DL (7-18); CALCIUM LEVEL 8.7 MG/DL (8.8-10.2); CARBON DIOXIDE LEVEL 30 MEQ/L (21-32); CHLORIDE LEVEL 107 MEQ/L (98-107); CREATININE FOR GFR 0.89 MG/DL (0.70-1.30); GLOMERULAR FILTRATION RATE > 60.0 (>49); GLUCOSE, FASTING 104 MG/DL (80-110); POTASSIUM SERUM 3.9 MEQ/L (3.5-5.1); SODIUM LEVEL 144 MEQ/L (136-145)
[2016-09-10] MEDS: LevoFLOXacin 250 MG TABLET PO SCH (06:44)
[2016-09-10] MEDS: METOPROLOL TART 25 MG TABLET PO SCH ×3 (06:44→21:41)
[2016-09-10] MEDS: ASPIRIN 325 MG TAB PO SCH (07:58)
[2016-09-10] MEDS: PHENYTOIN ER 100 MG CAP PO SCH ×3 (07:59→21:37)
[2016-09-10] MEDS: LOSARTAN 50 MG TAB PO SCH (07:59)
--- NOTE | 2016-09-10 12:24 | IPNPDOC ---
Subjective Date Seen The patient was seen on 09/10/16. Subjective Chief Complaint/HPI The patient is a 66-year-old male admitted with a reason for visit of Acute Metabolic Encephalopathy. Events since last encounter pt seen and examined, was sitting in the chair, no overnight events Objective Physical Examination General Exam: Positive: Alert, No Acute Distress Eye Exam: Positive: Conjunctiva & lids normal, PERRLA, Negative: Sclera icteric ENT Exam: Positive: Atraumatic, Mucous membr. moist/pink, Pharynx Normal Neck Exam: Positive: Supple Chest Exam: Positive: Clear to auscultation, Normal air movement Heart Exam: Positive: Other (occasional extra beat), Regular Rhythm, Tachycardic Abdomen Exam: Positive: Normal bowel sounds, Soft Extremity Exam: Positive: Normal pulses, Negative: Clubbing, Cyanosis, Edema Skin Exam: Positive: Nl turgor and temperature Neuro Exam: Positive: Normal Tone, Other (no facial droop, cloth colors examiner strength 5+ on right, 4+ on left, LLE 1+ MS. LUE 3+MS ) Psych Exam: Positive: Mental status NL, Mood NL, Oriented x 3 Assessment /Plan Problems (1) Acute ischemic stroke Status: Acute Problem Text: Pt has weakness in LUE and LLE and numbness over plantar surface of his left foot. Will continue PT. will likely need [facility] placement since pt lives alone I had a discussion with his health care proxy on 09/05 and they agreed to placement will change status to ALC (2) Decreased alertness Status: Resolved Problem Text: Appears improved today. Pt is responding appropriately, reports he has pain neck and back pain likely 2/2 prolonged bedrest (3) HTN (hypertension) Status: Acute Response to Treatment: Stable, Improving Problem Text: Continue pt on current BP meds with respect to the parameters (4) Seizure disorder Status: Chronic Problem Text: * Dilantin level is now therapeutic * dilantin dose was increased to 200mg po tid will repeat level * will repeat level in on tuesday 09/12 (5) Hypokalemia Status: Resolved Problem Text: K levels now normal (6) Leukocytosis Status: Acute Response to Treatment: Improving Problem Text: improving secondary to UTI will start Levaquin and d/c IV antibiotics (7) ROCAEL (acute kidney injury) Status: Resolved Problem Text: was likely due to rhabdo, pt was on the floor for an unknown period of time (8) Rhabdomyolysis Status: Resolved Plan/VTE VTE Prophylaxis Ordered?: Yes Plan/Urinary Catheter Reason for insertion/continuin: Critical Pt monitoring Plan IVF: Continue Diet: Continue Current Activity: Continue Current Therapy: PT, OT VS, I&O, 24H, Fishbone Vital Signs/I&O Vital Signs Date Time Temp Pulse Resp B/P Pulse Ox O2 Delivery O2 Flow Rate FiO2 09/10/16 09:00 Room Air 09/10/16 07:59 162/88 09/10/16 06:44 69 09/10/16 06:00 96.2 18 96 I&O- Last 24 Hours up to 6 AM 09/10/16 06:00 Intake Total 3880 ml Balance 3880 ml Laboratory Data 24H LABS Laboratory Tests 2 09/10/16 05:30: Blood Urea Nitrogen 15, Creatinine 0.89, Sodium Level 144, Potassium Level 3.9, Chloride Level 107, Carbon Dioxide Level 30, Calcium Level 8.7L, Aspartate Amino Transf (AST/SGOT) 43H, Alanine Aminotransferase (ALT/SGPT) 90H, Alkaline Phosphatase 89, Total Bilirubin 0.3, Total Protein 6.0L, Albumin 2.5L, Albumin/ Globulin Ratio 0.71L, Anion Gap 7L, White Blood Count 12.4H, Red Blood Count 3.70L, Hemoglobin 12.4L, Hematocrit 35.7L, Mean Corpuscular Volume 96.4H, Mean Corpuscular Hemoglobin 33.5H, Mean Corpuscular Hemoglobin Concent 34.8, Red Cell Distribution Width 13.6, Platelet Count 292, Neutrophils (%) (Auto) 68.2H, Lymphocytes (%) (Auto) 19.5L, Monocytes (%) (Auto) 6.3H, Eosinophils (%) (Auto) 4.0H, Basophils (%) (Auto) 0.4, Neutrophils # (Auto) 8.5H, Lymphocytes # (Auto) 2.6, Monocytes # (Auto) 0.8, Eosinophils # (Auto) 0.5, Basophils # (Auto) 0.0, Glomerular Filtration Rate > 60.0, Large Unclassified Cells # 0.2, Large Unclassified Cells % 1.7, Phenytoin (Dilantin) Level 11.9 CBC/BMP Laboratory Tests 09/10/16 05:30 Calcium Level 8.7 L, Aspartate Amino Transf (AST/SGOT) 43 H, Alanine Aminotransferase (ALT/SGPT) 90 H, Alkaline Phosphatase 89, Total Bilirubin 0.3, Total Protein 6.0 L, Albumin 2.5 L, Red Blood Count 3.70 L, Mean Corpuscular Volume 96.4 H, Mean Corpuscular Hemoglobin 33.5 H, Mean Corpuscular Hemoglobin Concent 34.8, Red Cell Distribution Width 13.6, Neutrophils (%) (Auto) 68.2 H, Lymphocytes (%) (Auto) 19.5 L, Monocytes (%) (Auto) 6.3 H, Eosinophils (%) (Auto ) 4.0 H, Basophils (%) (Auto) 0.4, Neutrophils # (Auto) 8.5 H, Lymphocytes # ( Auto) 2.6, Monocytes # (Auto) 0.8, Eosinophils # (Auto) 0.5, Basophils # (Auto) 0.0 Microbiology Microbiology 09/03/16 Blood Culture - Final, Complete NO GROWTH AFTER 5 DAYS 09/05/16 Respiratory Virus Panel (PCR) (NANCI) - Final, Complete 09/03/16 Urine Culture - Final, Complete Klebsiella Pneumoniae VAISHNAVI JOHNSTON DO Sep 10, 2016 12:24
[2016-09-10] MEDS: ATORVASTATIN 20 MG TAB PO SCH (21:37)
[2016-09-11 06:00] VITALS: BP 173/93
[2016-09-11] MEDS: LevoFLOXacin 250 MG TABLET PO SCH (06:06)
[2016-09-11] MEDS: METOPROLOL TART 25 MG TABLET PO SCH ×3 (06:06→22:55)
[2016-09-11] MEDS: PHENYTOIN ER 100 MG CAP PO SCH ×3 (08:24→20:35)
[2016-09-11] MEDS: LOSARTAN 50 MG TAB PO SCH (08:24)
[2016-09-11] MEDS: ASPIRIN 325 MG TAB PO SCH (08:24)
[2016-09-11] MEDS: ATORVASTATIN 20 MG TAB PO SCH (20:35)
[2016-09-12 06:00] VITALS: BP 168/98
[2016-09-12] MEDS: LevoFLOXacin 250 MG TABLET PO SCH (06:24)
[2016-09-12] MEDS: METOPROLOL TART 25 MG TABLET PO SCH ×3 (06:25→21:31)
[2016-09-12] MEDS: PHENYTOIN ER 100 MG CAP PO SCH ×3 (09:22→21:30)
[2016-09-12] MEDS: ASPIRIN 325 MG TAB PO SCH (09:22)
[2016-09-12] MEDS: LOSARTAN 50 MG TAB PO SCH (09:23)
[2016-09-12] MEDS: ATORVASTATIN 20 MG TAB PO SCH (21:29)
[2016-09-12] MEDS: NYSTATIN 100,000 UNITS/GM TOPICAL PWD 15 GM TOP PRN (21:40)
[2016-09-12 22:00] VITALS: BP 132/87
[2016-09-13 06:00] VITALS: BP 168/88
[2016-09-13] MEDS: METOPROLOL TART 25 MG TABLET PO SCH ×3 (06:10→21:59)
[2016-09-13] MEDS: ASPIRIN 325 MG TAB PO SCH (09:57)
[2016-09-13] MEDS: LOSARTAN 50 MG TAB PO SCH (09:58)
[2016-09-13] MEDS: PHENYTOIN ER 100 MG CAP PO SCH ×3 (09:58→21:54)
[2016-09-13 11:03] LABS: BASO % 0.2 % (0.0-1.0); EOS # 0.4 K/mm3 (0.0-0.50); EOS % 2.5 % (0.0-3.0); LARGE UNSTAINED CELL # 0.1 K/mm3 (0.0-0.4); LARGE UNSTAINED CELL % 0.9 % (0.0-4.0); LYMPH # 1.3 K/mm3 (1.5-4.5); MEAN CORPUSCULAR HEMOGLOBIN 33.1 pg (27.0-33.0); MEAN CORPUSCULAR HGB CONC 34.1 g/dl (32.0-36.5); MEAN CORPUSCULAR VOLUME 97.2 fl (80.0-96.0); MONO # 0.7 K/mm3 (0.0-0.8); MONO % 4.8 % (0.0-5.0); NEUTROPHILS # 12.1 K/mm3 (1.8-7.7); NEUTROPHILS % 83.7 % (36.0-66.0); PLATELET COUNT, AUTOMATED 300 k/mm3 (150-450); RED CELL DISTRIBUTION WIDTH 13.8 % (11.5-14.5); WHITE BLOOD COUNT 14.4 K/mm3 (4.0-10.0)
[2016-09-13 11:24] LABS: ANION GAP 8 MEQ/L (8-16); BLOOD UREA NITROGEN 18 MG/DL (7-18); CALCIUM LEVEL 8.5 MG/DL (8.8-10.2); CARBON DIOXIDE LEVEL 29 MEQ/L (21-32); CHLORIDE LEVEL 103 MEQ/L (98-107); CREATININE FOR GFR 0.95 MG/DL (0.70-1.30); GLOMERULAR FILTRATION RATE > 60.0 (>49); GLUCOSE, FASTING 212 MG/DL (80-110); POTASSIUM SERUM 3.6 MEQ/L (3.5-5.1); SODIUM LEVEL 140 MEQ/L (136-145)
[2016-09-13] MEDS: NYSTATIN 100,000 UNITS/GM TOPICAL PWD 15 GM TOP PRN (17:23)
[2016-09-13] MEDS: ATORVASTATIN 20 MG TAB PO SCH (21:53)
[2016-09-14] MEDS: METOPROLOL TART 25 MG TABLET PO SCH ×3 (05:23→21:36)
[2016-09-14 06:00] VITALS: BP 158/82
[2016-09-14] MEDS: PHENYTOIN ER 100 MG CAP PO SCH ×3 (10:18→21:35)
[2016-09-14] MEDS: ASPIRIN 325 MG TAB PO SCH (10:18)
[2016-09-14] MEDS: LOSARTAN 50 MG TAB PO SCH (10:20)
[2016-09-14] MEDS: ATORVASTATIN 20 MG TAB PO SCH (21:35)
[2016-09-15] MEDS: METOPROLOL TART 25 MG TABLET PO SCH ×3 (05:37→21:36)
[2016-09-15 06:00] VITALS: BP 148/91
[2016-09-15] MEDS: LOSARTAN 50 MG TAB PO SCH (08:34)
[2016-09-15] MEDS: PHENYTOIN ER 100 MG CAP PO SCH ×3 (08:34→21:34)
[2016-09-15] MEDS: ASPIRIN 325 MG TAB PO SCH (08:34)
[2016-09-15] MEDS: DOCUSATE SODIUM 100 MG CAP PO SCH (21:36)
[2016-09-15] MEDS: MIRALAX *UNIT DOSE* 17GM PACKET PO SCH (21:36)
[2016-09-15] MEDS: ATORVASTATIN 20 MG TAB PO SCH (21:36)
[2016-09-15 22:00] VITALS: BP 152/86
[2016-09-16] MEDS: METOPROLOL TART 25 MG TABLET PO SCH ×3 (05:52→21:28)
[2016-09-16 06:00] VITALS: BP 158/88
[2016-09-16 09:00] VITALS: BP 142/84
[2016-09-16] MEDS: LOSARTAN 50 MG TAB PO SCH (09:00)
[2016-09-16] MEDS: MIRALAX *UNIT DOSE* 17GM PACKET PO SCH ×2 (09:25→21:24)
[2016-09-16] MEDS: ASPIRIN 325 MG TAB PO SCH (09:26)
[2016-09-16] MEDS: DOCUSATE SODIUM 100 MG CAP PO SCH ×2 (09:26→21:24)
[2016-09-16] MEDS: PHENYTOIN ER 100 MG CAP PO SCH ×3 (09:26→21:25)
[2016-09-16] MEDS: MOM 30ML SUSPENSION UDC PO PRN ×2 (09:26→21:24)
[2016-09-16 11:39] LABS: MEAN CORPUSCULAR HEMOGLOBIN 32.6 pg (27.0-33.0); MEAN CORPUSCULAR HGB CONC 33.9 g/dl (32.0-36.5); MEAN CORPUSCULAR VOLUME 96.2 fl (80.0-96.0); RED CELL DISTRIBUTION WIDTH 13.6 % (11.5-14.5); WHITE BLOOD COUNT 14.8 K/mm3 (4.0-10.0)
--- NOTE | 2016-09-16 13:26 | IPNPDOC ---
Text Note Date of Service The patient was seen on 09/16/16. NOTE Subjective: Denies any complaints. No cough/dysuria. Objective: Vitals: (see below) General: No acute distress, laying comfortably in bed. HEENT: Moist mucous membranes. Neck: No JVD or lymphadenopathy Cardiac: RRR, No murmurs Pulm: Diminished breath sounds at the bases b/l. No wheezing, rhonchi Abd: NT/ND + BS Ext: Trace edema BLE. Neuro: Strength 5/ RUE, 2-3 LUE. /5 BLE R>L. Did not cooperate for a full neuro exam. Alert and Oriented to person only. Labs (see below) Images: MRA 08/26/16 IMPRESSION: Complete or near complete occlusion of the bilateral anterior cerebral arteries. The hyperdensity seen on the same-day head CT is compatible with acute thrombosis of the ACAs. MRI Brain 09/03/16 Impression: 1. Multiple bilateral acute infarctions in the high right and left frontal lobes medially and in the right basal ganglia, the largest focus. All of these are progressive in size or confluence compared to previous study without accompanying evidence for hemorrhage. 2. Chronic small vessel ischemic change of aging. 3. Mild midline shift with slightly larger lateral ventricles but no third or fourth ventricular dilatation or hydrocephalus. Assessment/Plan 1. Acute b/l CVA - on ASA/statin; complete to near complete occlusion of the b/ l anterior cerebral arteries. Left sided weakness. Will need snf placement. 2. HTN controlled - cont current meds 3. Leukocytosis - treated for pseudomonas UTI. Now with persistent leukocytosis. Afebrile.Will check CXR, UA. VBG, CRP, Lactic acid. No source of infection at this time. 4. Seizure d/o - cont current meds DVT prophy: SCDs. Dispo: will need snf placement. CT Chest 09/17/16 with RUL and RLL PNA. CRP 18, WBC 14. Sputum cx sent. Started on Augmentin. VS,Fishbone, I+O VS, Fishbone, I+O Laboratory Tests 09/16/16 11:33 Red Blood Count 3.72 L, Mean Corpuscular Volume 96.2 H, Mean Corpuscular Hemoglobin 32.6, Mean Corpuscular Hemoglobin Concent 33.9, Red Cell Distribution Width 13.6 Vital Signs Date Time Temp Pulse Resp B/P Pulse Ox O2 Delivery O2 Flow Rate FiO2 09/16/16 09:00 97.3 72 20 142/84 90 Room Air I&O- Last 24 Hours up to 6 AM 09/16/16 06:00 Intake Total 1680 ml Output Total 0 ml Balance 1680 ml NITISH LAWLER MD Sep 16, 2016 13:26
[2016-09-16 13:45] LABS: VENOUS BASE EXCESS 6.8 (-2.0-2.0); VENOUS O2 SATURATION 92.5 % (60.0-80.0); VENOUS PARTIAL PRESSURE CO2 47.4 mmHg (38.0-50.0); VENOUS PARTIAL PRESSURE O2 65.5 mmHg (30.0-50.0); VENOUS STANDARD HCO3 30.6 MEQ/L; VENOUS TOTAL CO2 33.4 MEQ/L (24.0-28.0)
--- NOTE | 2016-09-16 13:59 | REP ---
Clinical: Congestion. Comparison: 09/03/2016. Findings: Mediastinum and cardiac silhouette are stable. Cardiomegaly is again suggested. Pulmonary vascular congestion as well as right lower lobe atelectasis cannot be excluded. No pneumothorax. Skeletal structures intact. Impression: Cannot exclude mild pulmonary vascular congestion or right lower lobe atelectasis. Signed by Raj Leroy MD 09/16/2016 01:51 P
[2016-09-16 14:00] VITALS: BP 159/90
[2016-09-16 14:13] LABS: ANION GAP 6 MEQ/L (8-16); BLOOD UREA NITROGEN 17 MG/DL (7-18); CALCIUM LEVEL 8.1 MG/DL (8.8-10.2); CARBON DIOXIDE LEVEL 32 MEQ/L (21-32); CHLORIDE LEVEL 100 MEQ/L (98-107); GLOMERULAR FILTRATION RATE > 60.0 (>49); GLUCOSE, FASTING 158 MG/DL (80-110); POTASSIUM SERUM 3.8 MEQ/L (3.5-5.1); SODIUM LEVEL 138 MEQ/L (136-145)
[2016-09-16] MEDS: ATORVASTATIN 20 MG TAB PO SCH (21:25)
[2016-09-17] MEDS: METOPROLOL TART 25 MG TABLET PO SCH ×3 (05:53→22:39)
[2016-09-17 06:00] VITALS: BP 168/102
[2016-09-17] MEDS: PHENYTOIN ER 100 MG CAP PO SCH ×3 (09:32→22:39)
[2016-09-17] MEDS: ASPIRIN 325 MG TAB PO SCH (09:32)
[2016-09-17] MEDS: MIRALAX *UNIT DOSE* 17GM PACKET PO SCH ×2 (09:33→22:38)
[2016-09-17] MEDS: DOCUSATE SODIUM 100 MG CAP PO SCH ×2 (09:33→22:39)
[2016-09-17] MEDS: LOSARTAN 50 MG TAB PO SCH (09:35)
[2016-09-17] MEDS: AUGMENTIN 500 MG TAB PO SCH ×2 (14:48→22:40)
--- NOTE | 2016-09-17 17:33 | REP ---
Clinical: Evaluate infiltrate. Findings: There is an area of infiltrate involving the posterior basilar segment of the right upper lobe (images 37 - 61) as well as a small right pleural effusion with right lower lobe consolidation and subtle left lower lobe airspace disease. Within the right lower lobe consolidation as well as within the left lower lobe are small high density flecks which may reflect scattered calcifications. No pneumothorax. Mild reactive adenopathy at the mediastinum and right hilum is suggested. Thoracic aorta and heart/pericardium are relatively normal with mild atherosclerotic changes appreciated. Surrounding musculoskeletal structures demonstrate age-related change. Impression: 1. Posterobasilar right upper lobe infiltrate. Right lower lobe consolidation and small pleural effusion. Subtle air space disease to the left lower lobe. 2. Follow-up to resolution recommended. Signed by Raj Leroy MD 09/17/2016 05:24 P
[2016-09-17 22:00] VITALS: BP 144/89
[2016-09-17] MEDS: ATORVASTATIN 20 MG TAB PO SCH (22:39)
[2016-09-18 06:00] VITALS: BP 160/100
[2016-09-18 06:08] LABS: BASO % 0.3 % (0.0-1.0); EOS # 0.6 K/mm3 (0.0-0.50); EOS % 4.6 % (0.0-3.0); LARGE UNSTAINED CELL # 0.2 K/mm3 (0.0-0.4); LARGE UNSTAINED CELL % 1.6 % (0.0-4.0); LYMPH # 1.6 K/mm3 (1.5-4.5); LYMPH % 12.4 % (24.0-44.0); MEAN CORPUSCULAR HEMOGLOBIN 32.5 pg (27.0-33.0); MEAN CORPUSCULAR HGB CONC 33.5 g/dl (32.0-36.5); MEAN CORPUSCULAR VOLUME 96.8 fl (80.0-96.0); MONO # 0.9 K/mm3 (0.0-0.8); NEUTROPHILS # 9.7 K/mm3 (1.8-7.7); NEUTROPHILS % 74.2 % (36.0-66.0); PLATELET COUNT, AUTOMATED 312 k/mm3 (150-450); RED CELL DISTRIBUTION WIDTH 13.3 % (11.5-14.5); WHITE BLOOD COUNT 13.1 K/mm3 (4.0-10.0)
[2016-09-18] MEDS: METOPROLOL TART 25 MG TABLET PO SCH ×3 (06:12→22:44)
[2016-09-18] MEDS: DOCUSATE SODIUM 100 MG CAP PO SCH ×2 (09:42→22:42)
[2016-09-18] MEDS: MIRALAX *UNIT DOSE* 17GM PACKET PO SCH ×2 (09:42→22:43)
[2016-09-18] MEDS: AUGMENTIN 500 MG TAB PO SCH ×2 (09:42→22:43)
[2016-09-18] MEDS: ASPIRIN 325 MG TAB PO SCH (09:42)
[2016-09-18] MEDS: PHENYTOIN ER 100 MG CAP PO SCH ×3 (09:43→22:42)
[2016-09-18] MEDS: LOSARTAN 50 MG TAB PO SCH (09:43)
[2016-09-18] MEDS: ATORVASTATIN 20 MG TAB PO SCH (22:43)
[2016-09-19] MEDS: METOPROLOL TART 25 MG TABLET PO SCH ×3 (05:51→22:40)
[2016-09-19 06:00] VITALS: BP 160/90
[2016-09-19 07:23] LABS: BASO % 0.3 % (0.0-1.0); EOS # 0.6 K/mm3 (0.0-0.50); EOS % 6.1 % (0.0-3.0); LARGE UNSTAINED CELL # 0.2 K/mm3 (0.0-0.4); LARGE UNSTAINED CELL % 1.6 % (0.0-4.0); LYMPH # 1.8 K/mm3 (1.5-4.5); LYMPH % 17.1 % (24.0-44.0); MEAN CORPUSCULAR HEMOGLOBIN 32.9 pg (27.0-33.0); MEAN CORPUSCULAR HGB CONC 33.9 g/dl (32.0-36.5); MEAN CORPUSCULAR VOLUME 97.2 fl (80.0-96.0); MONO # 0.7 K/mm3 (0.0-0.8); MONO % 6.7 % (0.0-5.0); NEUTROPHILS # 7.3 K/mm3 (1.8-7.7); NEUTROPHILS % 68.1 % (36.0-66.0); PLATELET COUNT, AUTOMATED 310 k/mm3 (150-450); RED CELL DISTRIBUTION WIDTH 13.4 % (11.5-14.5); WHITE BLOOD COUNT 10.7 K/mm3 (4.0-10.0)
[2016-09-19] MEDS: MIRALAX *UNIT DOSE* 17GM PACKET PO SCH ×2 (08:49→21:00)
[2016-09-19] MEDS: ASPIRIN 325 MG TAB PO SCH (08:50)
[2016-09-19] MEDS: LOSARTAN 50 MG TAB PO SCH (08:50)
[2016-09-19] MEDS: PHENYTOIN ER 100 MG CAP PO SCH ×3 (08:50→22:40)
[2016-09-19] MEDS: AUGMENTIN 500 MG TAB PO SCH ×2 (08:50→22:40)
[2016-09-19] MEDS: DOCUSATE SODIUM 100 MG CAP PO SCH ×2 (08:50→21:00)
[2016-09-19] MEDS: ATORVASTATIN 20 MG TAB PO SCH (22:41)
[2016-09-20 06:00] VITALS: BP 150/95
[2016-09-20] MEDS: METOPROLOL TART 25 MG TABLET PO SCH ×3 (06:05→21:06)
[2016-09-20 06:42] LABS: BASO % 0.3 % (0.0-1.0); EOS # 0.6 K/mm3 (0.0-0.50); EOS % 5.3 % (0.0-3.0); LARGE UNSTAINED CELL # 0.2 K/mm3 (0.0-0.4); LARGE UNSTAINED CELL % 1.4 % (0.0-4.0); LYMPH # 1.7 K/mm3 (1.5-4.5); LYMPH % 15.6 % (24.0-44.0); MEAN CORPUSCULAR HEMOGLOBIN 32.2 pg (27.0-33.0); MEAN CORPUSCULAR HGB CONC 33.7 g/dl (32.0-36.5); MEAN CORPUSCULAR VOLUME 95.5 fl (80.0-96.0); MONO # 0.9 K/mm3 (0.0-0.8); MONO % 8.5 % (0.0-5.0); NEUTROPHILS # 7.3 K/mm3 (1.8-7.7); NEUTROPHILS % 68.9 % (36.0-66.0); PLATELET COUNT, AUTOMATED 293 k/mm3 (150-450); RED CELL DISTRIBUTION WIDTH 13.3 % (11.5-14.5); WHITE BLOOD COUNT 10.6 K/mm3 (4.0-10.0)
[2016-09-20] MEDS: MIRALAX *UNIT DOSE* 17GM PACKET PO SCH ×2 (08:30→21:00)
[2016-09-20] MEDS: LOSARTAN 50 MG TAB PO SCH (08:31)
[2016-09-20] MEDS: AUGMENTIN 500 MG TAB PO SCH ×2 (08:31→21:06)
[2016-09-20] MEDS: ASPIRIN 325 MG TAB PO SCH (08:31)
[2016-09-20] MEDS: DOCUSATE SODIUM 100 MG CAP PO SCH ×2 (08:32→21:06)
[2016-09-20] MEDS: PHENYTOIN ER 100 MG CAP PO SCH ×3 (08:32→21:07)
[2016-09-20] MEDS ORDERED: ASPI325T PO (15:10)
[2016-09-20] MEDS ORDERED: METO25TAB PO (15:10)
[2016-09-20] MEDS ORDERED: ATOR1TAB21 PO (15:10)
[2016-09-20] MEDS ORDERED: AMOX500T2 PO (15:10)
[2016-09-20] MEDS: ATORVASTATIN 20 MG TAB PO SCH (21:06)
[2016-09-20 22:00] VITALS: BP 168/82
[2016-09-21] MEDS: METOPROLOL TART 25 MG TABLET PO SCH (05:21)
[2016-09-21 05:40] LABS: BASO % 0.3 % (0.0-1.0); EOS # 0.7 K/mm3 (0.0-0.50); EOS % 5.8 % (0.0-3.0); LARGE UNSTAINED CELL # 0.2 K/mm3 (0.0-0.4); LARGE UNSTAINED CELL % 1.5 % (0.0-4.0); LYMPH # 2.1 K/mm3 (1.5-4.5); LYMPH % 18.6 % (24.0-44.0); MEAN CORPUSCULAR HEMOGLOBIN 33.1 pg (27.0-33.0); MEAN CORPUSCULAR HGB CONC 34.3 g/dl (32.0-36.5); MEAN CORPUSCULAR VOLUME 96.2 fl (80.0-96.0); MONO # 0.9 K/mm3 (0.0-0.8); MONO % 8.2 % (0.0-5.0); NEUTROPHILS # 7.4 K/mm3 (1.8-7.7); NEUTROPHILS % 65.6 % (36.0-66.0); PLATELET COUNT, AUTOMATED 285 k/mm3 (150-450); RED CELL DISTRIBUTION WIDTH 13.2 % (11.5-14.5); WHITE BLOOD COUNT 11.3 K/mm3 (4.0-10.0)
[2016-09-21 06:00] VITALS: BP 170/110
[2016-09-21 07:53] VITALS: BP 151/85
[2016-09-21] MEDS: MIRALAX *UNIT DOSE* 17GM PACKET PO SCH (08:39)
[2016-09-21] MEDS: AUGMENTIN 500 MG TAB PO SCH (08:42)
[2016-09-21 08:43] VITALS: BP 151/85
[2016-09-21] MEDS: DOCUSATE SODIUM 100 MG CAP PO SCH (08:43)
[2016-09-21] MEDS: PHENYTOIN ER 100 MG CAP PO SCH (08:43)
[2016-09-21] MEDS: LOSARTAN 50 MG TAB PO SCH (08:43)
[2016-09-21] MEDS: ASPIRIN 325 MG TAB PO SCH (08:43)
[2016-09-21] MEDS ORDERED: LEXA1TAB PO (10:47)
--- NOTE | 2016-09-26 18:57 | DSES ---
DATE OF ADMISSION: 08/26/2016 DATE OF DISCHARGE: 09/21/2016 CONSULTANTS: Dr. Ken, neurologist PROCEDURES: None. COMPLICATIONS: None. ADMISSION/DISCHARGE DIAGNOSES: 1. Acute bilateral cerebrovascular accident. 2. Hypertension. 3. Pseudomonas urinary tract infection. 4. Seizure disorder. HOSPITALIZATION COURSE: Patient is a 66-year-old male who presented to [facility] on 08/26/2016 after found down at home by emergency medical services (EMS). CT of the head revealed two new low-density lesions at the right basal ganglia and right posterior frontal lobe worthy matter, consistent with infarct. Patient was admitted to the intensive care unit (ICU) for telemetry. MRI/MRA were ordered, and neurologist, Dr. Ken, was consulted. During admission, patient was found to have rhabdomyolysis and acute kidney injury. Patient was started on aggressive intravenous (IV) fluid. Later, MRI/MRA came back to confirm the right basal ganglia and right parietal and bilateral frontal lobe infarct. Patient was started on full-dose aspirin per recommendations. Transesophageal echocardiogram (EDGAR) was ordered. Blood test was ordered to rule out coagulopathy and vasculopathy. Patient was also continued on Dilantin for a history of seizures. EDGAR was performed by Dr. Martines on 08/29/2016, which does not show any significant abnormalities. Patient's symptoms continued to improve, and patient was following with physical therapy. Patient situation has been discussed with patient's health proxy on 09/05/2016, and they agreed for seeking placement. Social service has been assisting on the case. On 09/10/2016, patient was converted to alternative level of care (ALC) status while waiting for placement. On 09/21/2016, patient had assignment to the [facility], and patient discharged from [facility]. During patient's hospitalization stay, patient stay was complicated by a urinary tract infection (UTI). Patient's urine culture came back positive for Klebsiella, and patient was started on amoxicillin. Then patient was started on one course of Levaquin to treat her Klebsiella UTI. Patient had full course of the treatment. On 09/17/2016, patient had a CT of the chest performed. Patient was found to have a posterior basilar right upper lobe infiltrate, right lower lobe consolidation, and small pleural effusion, and patient was started on another course of Augmentin. OBJECTIVE: VITAL SIGNS: Temperature is 97.6, pulse is 76, respirations 18, blood pressure is 170/110, pulse oximetry 90% in room air. LABORATORY DATA: WBC 11.3, hemoglobin 12.1, hematocrit 35.3, platelet count is 285. Sodium is 138, potassium 3.8, chloride is 100, carbon dioxide 32, BUN 17, creatinine 0.8, GFR greater than 60, fasting glucose 158, lactic acid is 1.2, calcium is 8.1. Microbiology: Blood cultures are negative after 5 days, sample collected on August 26 and September 03. Urine culture on 08/27/2016 is negative. Urine culture on 09/03/2016 is positive for Klebsiella. Respiratory panel on 09/05/2016 is negative. Urine culture on 09/16/2016 is negative. IMAGING STUDIES: CT of the head without contrast on 08/26/2016 showed two new low-density lesions in the right central hemisphere, right basal ganglia, and the right posterior frontal lobe worthy matter, consistent with infarction. MRI of the brain without contrast showed multiple acute infarctions involving the right basilar ganglia, high right frontal lobe, and smaller foci along the bilateral medial frontal lobe, compatible with acute infarction affecting the anterior cerebral artery. MRA of the brain without contrast on 08/26/2016 showed complete or near-complete occlusion of the bibasilar anterior cerebral artery. Carotid duplex on 08/27/2016 showed 0-15% of category narrowing in the left internal carotid artery (ICA) by Doppler with criteria. CT of the head without contrast on 09/03/2016 showed age-related cerebellar and cerebral atrophy. Mild chronic microvascular disease. Large right basal ganglia infarct, measuring 2 x 2 cm. The infarct is likely subacute with some expansion/involvement since the prior study. Brain MRI without contrast on 09/03/2016 showed multiple bilateral acute infarctions in the high right and left frontal lobes medially and in the right basal ganglia, the largest focus. All of those are progressive in size and confluence compared to previous study without accompanying evidence of hemorrhages. Chronic small-vessel ischemic change of aging. CT of the chest without contrast on 09/17/2016 showed posterobasilar right upper lobe infiltrate, right lower lobe consolidation, and small pleural effusion. DISCHARGE MEDICATIONS: - amoxicillin 500 mg by mouth every 12 hours for 3 more days - aspirin 325 mg by mouth daily - atorvastatin 80 mg by mouth at bedtime - Lexapro 10 mg by mouth daily - metoprolol 25 mg by mouth every 8 hours - losartan 50 mg by mouth daily - Dilantin 100 mg by mouth three times a day DISCHARGE INSTRUCTIONS: Discontinue line. Discharge to [facility]. Activity as tolerated. Diet as tolerated. Patient shall continue taking Augmentin for 3 more days for patient's pneumonia. Patient shall followup with the primary care provider within 1 week. DISCHARGE CONDITION; Stable. DISCHARGE TIME: Greater than 30 minutes.
== END 2016-09-21 11:20 | DRG 45 ==
LOC: M ED 16:14 → M ED INP 20:09 → M ICU 08-27 00:27 → M PCU 08-27 13:56 → M MSPAV 08-30 20:36
PROVIDERS: ADMIT Internal Medicine; ATTEND Internal Medicine
PROC: B246ZZ4 Ultrasonography of Right and Left Heart, Transesophageal (ICD-10-PCS; principal; 2016-08-29 13:30)
DX: I63.521 Cerebral infarction due to unspecified occlusion or stenosis of right anterior cerebral artery (principal); G93.41 Metabolic encephalopathy; N17.9 Acute kidney failure, unspecified; M62.82 Rhabdomyolysis; N39.0 Urinary tract infection, site not specified; I10 Essential (primary) hypertension; B96.5 Pseudomonas (aeruginosa) (mallei) (pseudomallei) as the cause of diseases classified elsewhere; G40.909 Epilepsy, unspecified, not intractable, without status epilepticus; B96.1 Klebsiella pneumoniae [K. pneumoniae] as the cause of diseases classified elsewhere; M54.5 Low back pain; D72.829 Elevated white blood cell count, unspecified; E87.6 Hypokalemia; Z91.14 Patient's other noncompliance with medication regimen; Z79.899 Other long term (current) drug therapy